=== PATIENT | female | born 1980 | race Caucasian/White ===

== ENCOUNTER 2016-05-05 10:29 | Emergency (ER) | payer BC ==
[2016-05-05] MEDS ORDERED: ANTIVERT 25 MG PO ONE (11:12)
[2016-05-05] MEDS ORDERED: Sodium Chloride 0.9% 1000 ML 1,000 ML IV SCH (11:15)
--- NOTE | 2016-05-05 11:24 | ERPHSYRPT ---
- History of Present Illness Time Seen by Provider: 05/05/16 10:45 Source: patient Exam Limitations: clinical condition Patient Subjective Stated Complaint: pt co headache since 0 this morning, pt has hx of migraines. 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 DENIES FEVER, BLURRED VISION, FACIAL PAIN OR NASAL DRAINAGE. Timing/Duration: today Quality: throbbing Head Pain Location: global Severity of Pain-Max: moderate Severity of Pain-Current: moderate Recent Head Trauma: frequent headaches Modifying Factors: Improves With: exposure to light Associated Symptoms: dizziness, light-headedness Previous symptoms: same symptoms as today Allergies/Adverse Reactions: azithromycin Allergy (Verified 10/31/13 18:12) Muscle Aches hydrocodone bitartrate [From Vicodin] Allergy (Verified 05/05/16 10:48) naproxen [From Naprosyn] Allergy (Verified 05/05/16 10:48) Home Medications: Tramadol HCl 50 mg DAILY PRN PRN 05/05/16 [History] Vit D3 & K/Berberine HCl/Hops [Ostera Tablet] 1 ea DAILY 05/05/16 [History] Hx Tetanus, Diphtheria Vaccination/Date Given: Yes Hx Influenza Vaccination/Date Given: No Hx Pneumococcal Vaccination/Date Given: No Immunizations Up to Date: Yes - Review of Systems Constitutional: No Fever, No Chills Eyes: No Symptoms Ears, Nose, & Throat: No Symptoms Respiratory: No Symptoms, No Cough, No Dyspnea Cardiac: No Symptoms, No Chest Pain, No Edema, No Syncope Abdominal/Gastrointestinal: No Symptoms, No Abdominal Pain, No Nausea, No Vomiting, No Diarrhea Genitourinary Symptoms: No Symptoms, No Dysuria Musculoskeletal: No Symptoms, No Back Pain, No Neck Pain Skin: No Symptoms, No Rash Neurological: Headache, No Dizziness, No Focal Weakness, No Sensory Changes Psychological: No Symptoms Endocrine: No Symptoms All Other Systems: Reviewed and Negative - Past Medical History Pertinent Past Medical History: Yes Neurological History: Migraines Cardiac History: Deep Vein Thrombosis Other Medical History: intestinal malrotation surg x2 ,brain surg chiarii - Past Surgical History Past Surgical History: Yes Neuro Surgical History: Other Gastrointestinal: Cholecystectomy Female Surgical History: Section, Tubal Ligation Other Surgical History: brain surg - Social History Smoking Status: Never smoker Exposure to second hand smoke: No Drug Use: none Patient Lives Alone: No - Female History Hx Last Menstrual Period: april - Nursing Vital Signs Nursing Vital Signs: Initial Vital Signs Temperature 98.2 F Temperature Source Oral Pulse Rate 80 Respiratory Rate 22 Blood Pressure [Right Arm] 110/61 Pain Intensity 5 - Physical Exam General Appearance: no apparent distress Eye Exam: PERRL/EOMI Ears, Nose, Throat Exam: normal ENT inspection, moist mucous membranes Neck Exam: normal inspection, supple, full range of motion, No meningismus Respiratory Exam: normal breath sounds, lungs clear Cardiovascular Exam: regular rate/rhythm, normal heart sounds Gastrointestinal/Abdominal Exam: soft, normal bowel sounds, No tenderness, No distention Back Exam: normal inspection, normal range of motion Mental Status Exam: alert, oriented x 3, cooperative water resource consultant Exam: normal speech, PERRL, No facial droop Coordination/Gait Exam: normal cerebellar function Motor/Sensory Exam: no motor deficit, no sensory deficit DTR Exam: bicep (R): 2+, bicep (L): 2+, tricep (R): 2+, tricep (L): 2+, knee (R) : 2+, knee (L): 2+, ankle (R): 2+, ankle (L): 2+ Skin Exam: normal color, warm, dry, No rash SpO2 Interpretation: normal SpO2: 99 Oxygen Delivery: Room Air - Course EKG Interpreted by Me: RATE, Sinus Rhythm, NORMAL AXIS - CT Exams Head CT Interpretation: Discussed w/radiologist, No/Intracranial Hemorrhag Ordered Tests: Active Orders 24 hr Category Date Time Status EKG-ER Only STAT Care 05/05/16 11:10 Active Orthostatic Vital Signs STAT Care 05/05/16 11:11 Active HEAD WITHOUT CONTRAST [CT] Stat Exams 05/05/16 13:04 Completed CBC W DIFF Stat Lab 05/05/16 11:26 Completed CMP Stat Lab 05/05/16 11:26 Completed HCG,QUALITATIVE URINE Stat Lab 05/05/16 11:47 Completed MAGNESIUM Stat Lab 05/05/16 11:26 Completed Medication Summary Generic Name Dose Route Start Last Admin Trade Name Sulaiman PRN Reason Stop Dose Admin Sodium Chloride 1,000 mls @ 500 mls/hr 05/05/16 11:15 05/05/16 11:31 Sodium Chloride 0.9% 1000 Ml IV 06/04/16 11:14 500 mls/hr .Q2H FERCHO Administration Discontinued Medications Generic Name Dose Route Start Last Admin Trade Name Sulaiman PRN Reason Stop Dose Admin Fentanyl Citrate 100 mcg 05/05/16 13:03 05/05/16 13:16 Sublimaze 100 Mcg/2 Ml IV 05/05/16 13:04 100 mcg STAT ONE Administration Fentanyl Citrate Confirm 05/05/16 13:15 Sublimaze 100 Mcg/2 Ml Administered 05/05/16 13:16 Dose 100 mcg .ROUTE .STK-MED ONE Sodium Chloride Confirm 05/05/16 11:28 Sodium Chloride 0.9% 1000 Ml Administered 05/05/16 11:29 Dose 1,000 mls @ ud .ROUTE .STK-MED ONE Meclizine HCl 25 mg 05/05/16 11:12 05/05/16 11:32 Antivert 25 Mg PO 05/05/16 11:13 25 mg STAT ONE Administration Meclizine HCl Confirm 05/05/16 11:28 Antivert 25 Mg Administered 05/05/16 11:29 Dose 25 mg .ROUTE .STK-MED ONE Ondansetron HCl 4 mg 05/05/16 11:27 05/05/16 11:43 Zofran 4 Mg/2 Ml Vial IV 05/05/16 11:28 4 mg STAT ONE Administration Ondansetron HCl Confirm 05/05/16 11:42 Zofran 4 Mg/2 Ml Vial Administered 05/05/16 11:43 Dose 4 mg .ROUTE .STK-MED ONE Lab/Rad Data: Laboratory Result Diagrams 05/05/16 11:26 05/05/16 11:26 Laboratory Results 05/05/16 05/05/16 05/05/16 Range/Units 11:47 11:26 11:26 WBC 12.3 H (4.0-10.5) K/mm3 RBC 4.57 (4.1-5.4) M/mm3 Hgb 13.8 (12.0-16.0) gm/dl Hct 41.2 (35-47) % MCV 90.2 (78-100) fl MCH 30.2 (26-32) pg MCHC 33.5 (32-36) g/dl RDW 12.3 (11.5-14.0) % Plt Count 262 (150-450) K/mm3 MPV 11.3 H (6-9.5) fl Gran % 82.5 H (36.0-66.0) % Lymphocytes % 12.5 L (24.0-44.0) % Monocytes % 4.5 (0.0-12.0) % Eosinophils % 0.3 (0.00-5.0) % Basophils % 0.2 (0.0-0.4) % Basophils # 0.03 (0-0.4) Sodium 138 (136-145) mEq/L Potassium 4.0 (3.5-5.1) mEq/L Chloride 104 (98-107) mEq/L Carbon Dioxide 25.8 (21-32) mEq/L Anion Gap 12.1 (5-15) MEQ/L BUN 14 (9-20) mg/dL Creatinine 0.81 (0.55-1.30) mg/dl Estimated GFR > 60 ML/MIN Glucose 102 (70-110) MG/DL Calcium 8.4 L (8.5-10.1) mg/dL Magnesium 2.0 (1.8-2.4) mg/dL Total Bilirubin 0.3 (0.2-1.0) mg/dL AST 21 (15-37) U/L ALT 20 (12-78) U/L Alkaline Phosphatase 71 (46-116) U/L Serum Total Protein 7.6 (6.4-8.2) gm/dL Albumin 3.6 (3.4-5.0) g/dL Urine HCG, Qual NEGATIVE (Negative) - Progress Progress: improved Progress Note: 05/05/16 11:25 PATIENT GIVEN IV FLUIDS NORMAL SALINE 500MG/HR, ANTIVERT 25MG ORALLY, ZOFRAN 4MG IV AND FENTANYL -0.11MG IV 05/05/16 13:25 - Departure Time of Disposition: 14:45 Departure Disposition: Home Clinical Impression: ACUTE LABYRINTHITIS, ACUTE CEPHALGIA Condition: Stable Critical Care Time: No Instructions: Headache Additional Instructions: BEGIN ANTIVERT 25MG EVERY 8 HOURS FOR PAIN NEEDED. FIORICET WITH CODEINE EVERY 4 HOURS FOR PAIN NEEDED. CONSULT YOUR FAMILY PHYSICIAN TODAY TO SCHEDULE FOLLOWUP APPOINTMENT. Prescriptions: Codeine/Butalbit/Acetamin/Caff [Fioricet-Cod [id number] Cap] 1 each PO Q4H PRN PRN #10 capsule PRN Reason: Pain Meclizine HCl 25 mg [Antivert 25 mg] 25 mg PO TID PRN PRN #21 tablet PRN Reason: Dizziness
[2016-05-05] MEDS ORDERED: Zofran 4 MG/2 ML VIAL IV ONE (11:27)
[2016-05-05] MEDS ORDERED: ANTIVERT 25 MG ONE (11:28)
[2016-05-05] MEDS ORDERED: Sodium Chloride 0.9% 1000 ML 1,000 ML ONE (11:28)
[2016-05-05] MEDS ORDERED: Zofran 4 MG/2 ML VIAL ONE (11:42)
[2016-05-05 11:46] LABS: BASOPHIL % 0.2 % (0.0-0.4); Eosinophil % 0.3 % (0.00-5.0); Granulocytes % 82.5 % (36.0-66.0); Lymphocytes % 12.5 % (24.0-44.0); Mean Cell Volume 90.2 fl (78-100); Mean Corpuscular Hemoglobin 30.2 pg (26-32); Mean Platelet Volume 11.3 fl (6-9.5); Monocytes % 4.5 % (0.0-12.0); Platelet Count 262 K/mm3 (150-450); Red Blood Count 4.57 M/mm3 (4.1-5.4); Red Cell Distribution Width 12.3 % (11.5-14.0); White Blood Count 12.3 K/mm3 (4.0-10.5)
[2016-05-05 11:58] LABS: ALBUMIN 3.6 g/dL (3.4-5.0); ALKALINE PHOSPHATASE 71 U/L (46-116); ANION GAP 12.1 MEQ/L (5-15); BILIRUBIN,TOTAL 0.3 mg/dL (0.2-1.0); BLOOD UREA NITROGEN 14 mg/dL (9-20); CHLORIDE 104 mEq/L (98-107); Carbon Dioxide 25.8 mEq/L (21-32); Glucose 102 MG/DL (70-110); SGOT/AST 21 U/L (15-37); SGPT/ALT 20 U/L (12-78); SODIUM 138 mEq/L (136-145); Total Protein 7.6 gm/dL (6.4-8.2)
[2016-05-05] MEDS ORDERED: SUBLIMAZE 100 MCG/2 ML IV ONE (13:03)
[2016-05-05] MEDS ORDERED: SUBLIMAZE 100 MCG/2 ML ONE (13:15)
--- NOTE | 2016-05-05 13:58 | XRAY ---
Indication: Headache and dizziness. Multiple contiguous axial images obtained through the head without contrast. Comparison: None Normal appearing brain parenchyma and ventricles. Bony calvarium intact with note of previous midline occipital craniectomy. Visualized paranasal sinuses and mastoid air cells are pneumatized and clear. Impression: No acute intracranial abnormalities. CTDI 69.52
[2016-05-05 14:54] VITALS: BP 105/66; PULSE 88; O2SAT 98
== END 2016-05-05 14:54 | disposition home or self-care (01) ==
LOC: ED 10:29
DX: H83.09 Labyrinthitis, unspecified ear (principal); R51 Headache
CPT/HCPCS: 36000; 36415; 70450; 80053; 83735; 84703; 85025; 93005; 96360; 96365; 96374; 96375; 99284; J2405; J3010; A9270-GY

== ENCOUNTER 2016-07-02 12:58 | Emergency (ER) | payer BC ==
[2016-07-02] MEDS ORDERED: Zofran 4 MG/2 ML VIAL IV ONE (13:30)
[2016-07-02] MEDS ORDERED: BENADRYL 50 MG/ML IV ONE (13:30)
[2016-07-02] MEDS ORDERED: PROTONIX 40 MG IV IV ONE ×2 (13:30→13:46)
[2016-07-02] MEDS ORDERED: Sodium Chloride 0.9% 1000 ML 1,000 ML IV SCH (13:30)
[2016-07-02] MEDS ORDERED: Hydromorphone 1 mg/ml Ampule IV ONE (13:30)
[2016-07-02] MEDS ORDERED: BENADRYL 50 MG/ML ONE (13:45)
[2016-07-02] MEDS ORDERED: Zofran 4 MG/2 ML VIAL ONE (13:45)
[2016-07-02] MEDS ORDERED: Sodium Chloride 0.9% 1000 ML 1,000 ML ONE (13:46)
[2016-07-02] MEDS ORDERED: Hydromorphone 1 mg/ml Ampule ONE (13:46)
[2016-07-02 13:59] LABS: BASOPHIL % 0.5 % (0.0-0.4); Collection Type CCMS; Granulocytes % 55.9 % (36.0-66.0); Lymphocytes % 35.8 % (24.0-44.0); Mean Cell Volume 89.7 fl (78-100); Mean Corpuscular Hemoglobin 30.1 pg (26-32); Mean Platelet Volume 11.6 fl (6-9.5); Monocytes % 6.8 % (0.0-12.0); Platelet Count 253 K/mm3 (150-450); Red Blood Count 4.39 M/mm3 (4.1-5.4); Red Cell Distribution Width 12.2 % (11.5-14.0); White Blood Count 6.2 K/mm3 (4.0-10.5)
[2016-07-02 14:00] LABS: COMPLETE URINE MICROSCOPIC? NO
--- NOTE | 2016-07-02 14:16 | ERPHSYRPT ---
- History of Present Illness Time Seen by Provider: 07/02/16 13:10 Historian: patient Exam Limitations: clinical condition Patient Subjective Stated Complaint: onset lower abd pain this am Triage Nursing Assessment: ambulated to room without difficulty holding abd. skin w/d, color normal, resp easy. abd soft but tender. normal bowel sounds. Physician History: PATIENT WITH HISTORY OF ABDOMINAL MALROTATION SURGERY X 2 PROCEDURES, COMPLAINS OF ABDOMINAL PAIN SINCE 8AM SEVERE CRAMPING DISCOMFORT ASSOCIATED WITH NAUSEA, DENIES EMESIS OR DIARRHEA, FEVER, URINARY SYMPTOMS. Timing/Duration: today Activities at Onset: none Quality: cramping, sharpness Abdominal Pain Onset Location: periumbilical, generalized abdomen Pain Radiation: no radiation Severity of Pain-Max: moderate Severity of Pain-Current: moderate Modifying Factors: Improves With: nothing Associated Symptoms: nausea Previous symptoms: same symptoms as today Allergies/Adverse Reactions: azithromycin Allergy (Verified 07/02/16 13:13) Muscle Aches hydrocodone bitartrate [From Vicodin] Allergy (Verified 07/02/16 13:13) naproxen [From Naprosyn] Allergy (Verified 07/02/16 13:13) Hx Tetanus, Diphtheria Vaccination/Date Given: Yes Hx Influenza Vaccination/Date Given: No Hx Pneumococcal Vaccination/Date Given: No - Review of Systems Constitutional: No Fever, No Chills Eyes: No Symptoms Ears, Nose, & Throat: No Symptoms Respiratory: No Symptoms, No Cough, No Dyspnea Cardiac: No Symptoms, No Chest Pain, No Edema, No Syncope Abdominal/Gastrointestinal: Abdominal Pain, Nausea, No Vomiting, No Diarrhea Genitourinary Symptoms: No Symptoms, No Dysuria Musculoskeletal: No Symptoms, No Back Pain, No Neck Pain Skin: No Symptoms, No Rash Neurological: No Symptoms, No Dizziness, No Focal Weakness, No Sensory Changes Psychological: No Symptoms Endocrine: No Symptoms All Other Systems: Reviewed and Negative - Past Medical History Pertinent Past Medical History: Yes Neurological History: Migraines Cardiac History: Deep Vein Thrombosis Other Medical History: intestinal malrotation surg x2 ,brain surg chiarii - Past Surgical History Past Surgical History: Yes Neuro Surgical History: Other Gastrointestinal: Cholecystectomy Female Surgical History: Section, Tubal Ligation Other Surgical History: brain surg - Social History Smoking Status: Never smoker Exposure to second hand smoke: No Drug Use: none Patient Lives Alone: No - Female History Hx Last Menstrual Period: 06/16/16 - Nursing Vital Signs Nursing Vital Signs: Initial Vital Signs Temperature 97.5 F Temperature Source Oral Pulse Rate 81 Respiratory Rate 20 Blood Pressure [Right Arm] 111/70 Pain Intensity 7 - Physical Exam General Appearance: mild distress Eye Exam: PERRL/EOMI, eyes nml inspection Ears, Nose, Throat Exam: normal ENT inspection, pharynx normal, moist mucous membranes Neck Exam: normal inspection, non-tender, supple, full range of motion Respiratory Exam: normal breath sounds, lungs clear, No respiratory distress Cardiovascular Exam: regular rate/rhythm, normal heart sounds Gastrointestinal/Abdomen Exam: soft, normal bowel sounds, tenderness ( PERIUMBILICAL TENDERNESS) Back Exam: normal inspection Extremity Exam: normal inspection Neurologic Exam: alert, oriented x 3, cooperative Skin Exam: normal color SpO2 Interpretation: normal SpO2: 95 Oxygen Delivery: Room Air - CT Exams Abdomen/Pelvis CT Interpretation: Discussed w/radiologist (NEW VENTRAL UMBILICAL HERNIA WITH HERNIATED LOOP OF COLON, NO INCARCERATION/OBSTRUCTION. STABLE MALROTATION WITHOUT OBSTRUCTION. NEW 2.2CM LEFT OVARIAN CYST) Ordered Tests: Active Orders 24 hr Category Date Time Status Clean Catch Urine Specimen STAT Care 07/02/16 13:30 Active IV Insertion STAT Care 07/02/16 13:30 Active ABDOMEN AND PELVIS W CONTRAST [CT] Stat Exams 07/02/16 13:31 Completed AMYLASE Stat Lab 07/02/16 13:45 Completed CBC W DIFF Stat Lab 07/02/16 13:45 Completed CMP Stat Lab 07/02/16 13:45 Completed LIPASE Stat Lab 07/02/16 13:45 Completed UA Stat Lab 07/02/16 13:45 Completed Medication Summary Generic Name Dose Route Start Last Admin Trade Name Freq PRN Reason Stop Dose Admin Sodium Chloride 1,000 mls @ 250 mls/hr 07/02/16 13:30 07/02/16 13:47 Sodium Chloride 0.9% 1000 Ml IV 08/01/16 13:29 250 mls/hr .Q4H FERCHO Administration Discontinued Medications Generic Name Dose Route Start Last Admin Trade Name Freq PRN Reason Stop Dose Admin Diphenhydramine HCl 25 mg 07/02/16 13:30 07/02/16 13:51 Benadryl 50 Mg/Ml IV 07/02/16 13:31 25 mg STAT ONE Administration Diphenhydramine HCl Confirm 07/02/16 13:45 Benadryl 50 Mg/Ml Administered 07/02/16 13:46 Dose 50 mg .ROUTE .STK-MED ONE Fentanyl Citrate 100 mcg 07/02/16 15:23 Sublimaze 100 Mcg/2 Ml IV 07/02/16 15:24 STAT ONE Fentanyl Citrate Confirm 07/02/16 15:29 Sublimaze 100 Mcg/2 Ml Administered 07/02/16 15:30 Dose 100 mcg .ROUTE .STK-MED ONE Hydromorphone HCl 1 mg 07/02/16 13:30 07/02/16 13:52 Hydromorphone 1 Mg/Ml Ampule IV 07/02/16 13:31 1 mg STAT ONE Administration Hydromorphone HCl Confirm 07/02/16 13:46 Hydromorphone 1 Mg/Ml Ampule Administered 07/02/16 13:47 Dose 1 mg .ROUTE .STK-MED ONE Ondansetron HCl 4 mg 07/02/16 13:30 07/02/16 13:50 Zofran 4 Mg/2 Ml Vial IV 07/02/16 13:31 4 mg STAT ONE Administration Ondansetron HCl Confirm 07/02/16 13:45 Zofran 4 Mg/2 Ml Vial Administered 07/02/16 13:46 Dose 4 mg .ROUTE .STK-MED ONE Pantoprazole Sodium 40 mg 07/02/16 13:30 07/02/16 13:50 Protonix 40 Mg Iv IV 07/02/16 13:31 40 mg STAT ONE Administration Pantoprazole Sodium Confirm 07/02/16 13:46 Protonix 40 Mg Iv Administered 07/02/16 13:47 Dose 40 mg IV .STK-MED ONE Lab/Rad Data: Laboratory Result Diagrams 07/02/16 13:45 07/02/16 13:45 Laboratory Results 07/02/16 07/02/16 07/02/16 Range/Units 13:45 13:45 13:45 WBC 6.2 (4.0-10.5) K/mm3 RBC 4.39 (4.1-5.4) M/mm3 Hgb 13.2 (12.0-16.0) gm/dl Hct 39.4 (35-47) % MCV 89.7 (78-100) fl MCH 30.1 (26-32) pg MCHC 33.5 (32-36) g/dl RDW 12.2 (11.5-14.0) % Plt Count 253 (150-450) K/mm3 MPV 11.6 H (6-9.5) fl Gran % 55.9 (36.0-66.0) % Lymphocytes % 35.8 (24.0-44.0) % Monocytes % 6.8 (0.0-12.0) % Eosinophils % 1.0 (0.00-5.0) % Basophils % 0.5 (0.0-0.4) % Basophils # 0.03 (0-0.4) Sodium 142 (136-145) mEq/L Potassium 3.9 (3.5-5.1) mEq/L Chloride 108 H (98-107) mEq/L Carbon Dioxide 25.3 (21-32) mEq/L Anion Gap 12.5 (5-15) MEQ/L BUN 9 (9-20) mg/dL Creatinine 0.73 (0.55-1.30) mg/dl Estimated GFR > 60 ML/MIN Glucose 100 (70-110) MG/DL Calcium 8.6 (8.5-10.1) mg/dL Total Bilirubin 0.2 (0.2-1.0) mg/dL AST 12 L (15-37) U/L ALT 15 (12-78) U/L Alkaline Phosphatase 55 (46-116) U/L Serum Total Protein 7.1 (6.4-8.2) gm/dL Albumin 3.4 (3.4-5.0) g/dL Amylase 45 (25-115) U/L Lipase 149 (73-393) U/L Ur Collection Type CCMS Urine Color YELLOW (YELLOW) Urine Appearance CLEAR (CLEAR) Urine pH 7.0 (5-6) Ur Specific Carpenter 1.015 (1.005-1.025) Urine Protein NEGATIVE (Negative) Urine Glucose (UA) NEGATIVE (NEGATIVE) mg/dL Urine Ketones NEGATIVE (NEGATIVE) Urine Nitrite NEGATIVE (NEGATIVE) Urine Bilirubin NEGATIVE (NEGATIVE) Urine Urobilinogen 0.2 (0-1) mg/dL Urine WBC (Auto) NEGATIVE (NEGATIVE) Urine RBC (Auto) NEGATIVE (0-5) Monty/ul Specimen Received 1345 07/02/16 - Progress Progress Note: 07/02/16 14:16 PATIENT ADMNINISTERED IV NORMAL SALINE 250ML/HR, ZOFRAN 4MG, BENADRYL 25MG, DILAUDID 1MG IV, FOLLOWED BY FENTANYL 0.1MG IV 07/02/16 15:36 - Departure Time of Disposition: 16:00 Departure Disposition: Home Clinical Impression: Umbilical hernia, LEFT OVARIAN CYST Condition: Stable Critical Care Time: No Additional Instructions: ZOFRAN 4MG EVERY 4 HOURS FOR PAIN. NORCO 10/325 EVERY 4 HOURS FOR PAIN DISCOMFORT. CONSULT YOUR GENERAL SURGEON FOR EVALUATION OF UMBILICAL HERNIA, AND INDUSTRIAL PSYCHOLOGY TEACHER FOR EVALUATION OF LEFT OVARIAN CYST. Prescriptions: Hydrocodone/APAP 10/325 mg [[place] 10/325 MG Tablet] 1 tab PO Q4H PRN PRN # 15 tablet PRN Reason: Pain Ondansetron [Zofran Odt] 4 mg PO Q4H PRN PRN #6 tab.rapdis PRN Reason: Nausea
[2016-07-02 14:24] LABS: ALBUMIN 3.4 g/dL (3.4-5.0); ALKALINE PHOSPHATASE 55 U/L (46-116); ANION GAP 12.5 MEQ/L (5-15); BILIRUBIN,TOTAL 0.2 mg/dL (0.2-1.0); BLOOD UREA NITROGEN 9 mg/dL (9-20); CHLORIDE 108 mEq/L (98-107); Carbon Dioxide 25.3 mEq/L (21-32); Glucose 100 MG/DL (70-110); LIPASE 149 U/L (73-393); Potassium 3.9 mEq/L (3.5-5.1); SGOT/AST 12 U/L (15-37); SGPT/ALT 15 U/L (12-78); SODIUM 142 mEq/L (136-145); Total Protein 7.1 gm/dL (6.4-8.2)
--- NOTE | 2016-07-02 15:13 | XRAY ---
Indication: Abdominal pain and vomiting. Multiple contiguous axial images obtained through the abdomen and pelvis using 80 cc Isovue 370 contrast only. Comparison: March 05, 2010. Lung bases demonstrate stable bibasilar fibrosis/scarring. No suspicious mass, infiltrate, or effusion. Heart is not enlarged. Noncontrasted stomach and bowel loops nonobstructed. Again the small bowel loops are predominantly in the right abdomen and colon predominantly left abdomen consistent with malrotation. New [place] 6 cm ventral umbilical hernia with loop of colon herniating without incarceration. There has been interval cholecystectomy and partial bowel resection. New 2.2 cm left ovary cyst. No free fluid/air. Stable nonobstructing left renal micro-calculus. Remaining liver, pancreas, spleen, adrenal glands, kidneys, ureters, bladder, uterus, and aorta appear unremarkable. No pathologic retroperitoneal lymphadenopathy. Osseous structures intact. Impression: 1. New ventral umbilical hernia with herniated loop of colon. No incarceration/obstruction. 2. 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 3. New 2.2 cm left ovary cyst. 4. Stable nonobstructing left renal micro-calculus. CT DI 20.07
[2016-07-02] MEDS ORDERED: SUBLIMAZE 100 MCG/2 ML IV ONE (15:23)
[2016-07-02] MEDS ORDERED: SUBLIMAZE 100 MCG/2 ML ONE (15:29)
[2016-07-02 15:41] VITALS: BP 116/69; PULSE 90
[2016-07-02 15:56] VITALS: O2SAT 95
== END 2016-07-02 16:17 | disposition home or self-care (01) ==
LOC: ED 12:58
DX: K42.9 Umbilical hernia without obstruction or gangrene (principal); N83.202 Unspecified ovarian cyst, left side; R10.30 Lower abdominal pain, unspecified; R11.0 Nausea
CPT/HCPCS: 36000; 36415; 74177; 80053; 81002; 82150; 83690; 85025; 96360; 96361; 96374; 96375; 99284; J1170; J1200; J2405; J3010

== ENCOUNTER 2018-06-09 17:41 | Emergency (ER) | payer BC ==
[2018-06-09] MEDS ORDERED: MORPHINE SULFATE 10 MG/ML IM ONE (18:29)
[2018-06-09] MEDS ORDERED: Phenergan 25 MG INJ IM ONE (18:31)
--- NOTE | 2018-06-09 18:36 | ERPHSYRPT ---
- History of Present Illness Time Seen by Provider: 06/09/18 18:15 Source: patient Exam Limitations: clinical condition Patient Subjective Stated Complaint: sudden onset of headache staes had visual problems. and light sensitivity. states pain is across her forhead and into her face. "feel like my nose is broken" Triage Nursing Assessment: alert and head covered. tinted glasses on holding head. states light sentitive. nausea no vomiting. unable to assess pupils due to pain with light. 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 hurt when she holds her head up. Physician History: PATIENT WITH A HISTORY OF ENZO DECOMPRESSION SURGERY 10 YEARS AGO COMPLAINS OF ACUTE ONSET OF FRONTAL HEADACHE ASSOCIATED WITH PHOTOPHOBIA OVER THE PAST 4 HOURS. DENIES BLURRED VISION, SLURRED SPEECH, NECK STIFFNESS OR FEVER. Timing/Duration: today Quality: throbbing Head Pain Location: frontal Severity of Pain-Max: severe Severity of Pain-Current: moderate Recent Head Trauma: no recent headache/trauma Modifying Factors: Improves With: exposure to light Associated Symptoms: vision changes Previous symptoms: same symptoms as today Allergies/Adverse Reactions: azithromycin Allergy (Verified 07/02/16 13:13) Muscle Aches hydrocodone bitartrate [From Vicodin] Allergy (Verified 07/02/16 13:13) naproxen [From Naprosyn] Allergy (Verified 07/02/16 13:13) Hx Tetanus, Diphtheria Vaccination/Date Given: Yes Hx Influenza Vaccination/Date Given: No Hx Pneumococcal Vaccination/Date Given: No Immunizations Up to Date: Yes - Review of Systems Constitutional: No Fever, No Chills Eyes: Photophobia Ears, Nose, & Throat: No Symptoms Respiratory: No Symptoms, No Cough, No Dyspnea Cardiac: Orthopnea, No Chest Pain, No Edema, No Syncope Abdominal/Gastrointestinal: No Abdominal Pain, No Nausea, No Vomiting, No Diarrhea Genitourinary Symptoms: No Dysuria Musculoskeletal: No Symptoms, No Back Pain, No Neck Pain Skin: No Rash Neurological: No Dizziness, No Focal Weakness, No Sensory Changes Psychological: No Symptoms Endocrine: No Symptoms All Other Systems: Reviewed and Negative - Past Medical History Pertinent Past Medical History: Yes Neurological History: Migraines Cardiac History: Deep Vein Thrombosis Other Medical History: intestinal malrotation surg x2 ,brain surg chiarii - Past Surgical History Past Surgical History: Yes Neuro Surgical History: Other Gastrointestinal: Cholecystectomy Female Surgical History: Section, Tubal Ligation Other Surgical History: brain surg - Social History Smoking Status: Never smoker Exposure to second hand smoke: No Drug Use: none Patient Lives Alone: No - Female History Hx Now: No - Nursing Vital Signs Nursing Vital Signs: Initial Vital Signs Temperature 97.6 F 06/09/18 17:58 Pulse Rate 87 06/09/18 17:58 Respiratory Rate 18 06/09/18 17:58 Blood Pressure 100/82 06/09/18 17:58 O2 Sat by Pulse Oximetry 97 06/09/18 17:58 Pain Scale Pain Intensity 6 - Physical Exam General Appearance: moderate distress Eye Exam: PERRL/EOMI Ears, Nose, Throat Exam: normal ENT inspection, moist mucous membranes Neck Exam: normal inspection, supple, full range of motion, No meningismus Respiratory Exam: normal breath sounds, lungs clear Cardiovascular Exam: regular rate/rhythm, normal heart sounds Gastrointestinal/Abdominal Exam: soft, No tenderness, No distention Back Exam: normal inspection, normal range of motion Mental Status Exam: alert, oriented x 3, cooperative occupational therapy assist Exam: normal speech, PERRL, No facial droop Coordination/Gait Exam: normal cerebellar function Motor/Sensory Exam: no motor deficit, no sensory deficit Skin Exam: normal color, warm, dry, No rash SpO2: 97 - CT Exams Head CT Interpretation: Discussed w/radiologist (STABLE OCCIPITAL CRANIOTOMY COMPARED TO 05/05/2016, NO NEW OR ACUTE FINDING) Ordered Tests: Active Orders 24 hr Category Date Time Status HEAD WITHOUT CONTRAST [CT] Stat Exams 06/09/18 18:32 Taken Medication Summary Discontinued Medications Generic Name Dose Route Start Last Admin Trade Name Sulaiman PRN Reason Stop Dose Admin Morphine Sulfate 10 mg 06/09/18 18:29 06/09/18 18:46 Morphine Sulfate 10 Mg/Ml IM 06/09/18 18:30 10 mg STAT ONE Administration Morphine Sulfate Confirm 06/09/18 18:37 Morphine Sulfate 10 Mg/Ml Administered 06/09/18 18:38 Dose 10 mg .ROUTE .STK-MED ONE Morphine Sulfate Confirm 06/09/18 18:46 Morphine Sulfate 10 Mg/Ml Administered 06/09/18 18:47 Dose 10 mg .ROUTE .STK-MED ONE Promethazine HCl 25 mg 06/09/18 18:31 06/09/18 18:47 Phenergan 25 Mg Inj IM 06/09/18 18:32 25 mg STAT ONE Administration Promethazine HCl Confirm 06/09/18 18:37 Phenergan 25 Mg Inj Administered 06/09/18 18:38 Dose 25 mg .ROUTE .STK-MED ONE Promethazine HCl Confirm 06/09/18 18:46 Phenergan 25 Mg Inj Administered 06/09/18 18:47 Dose 25 mg .ROUTE .STK-MED ONE - Progress Progress Note: 06/09/18 19:06 ADMINISTERED MORPHINE 10MG/PHENERGAN 25MG IM Counseled pt/family regarding: diagnosis, need for follow-up, rad results - Departure Departure Disposition: Home Clinical Impression: ACUTE CEPLHALGIA Condition: Stable Critical Care Time: No Referrals: KALIE SY [Primary Care Provider] - Additional Instructions: CONTINUE ZOFRAN 4MG EVERY 4 HOURS FOR NAUSEA. FIORICET 1 TABLET EVERY 4 HOURS FOR PAIN NEEDED. CONSULT YOUR PRIMARY CARE PROVIDER FOR FOLLOWUP.
[2018-06-09] MEDS ORDERED: MORPHINE SULFATE 10 MG/ML ONE ×2 (18:37→18:46)
[2018-06-09] MEDS ORDERED: Phenergan 25 MG INJ ONE ×2 (18:37→18:46)
[2018-06-09 20:22] VITALS: BP 98/64; PULSE 65; O2SAT 100
--- NOTE | 2018-06-10 09:05 | XRAY ---
Indication: Frontal headache. Multiple contiguous axial images obtained through the head without contrast. Comparison: May 05, 2016. Stable occipital craniectomy. Again no acute intracranial hemorrhage, abnormal extra-axial fluid collection, or mass effect. Fourth ventricle is midline without hydrocephalus. Moffett-white matter differentiation preserved. Remaining bony calvarium intact. Visualized paranasal sinuses and mastoid air cells are clear. Impression: Stable negative CT head without contrast exam. CT DI 70.00
== END 2018-06-09 20:26 | disposition home or self-care (01) ==
LOC: ED 17:41
DX: R51 Headache (principal)
CPT/HCPCS: 70450; 96372; 99284; J2270; J2550

== ENCOUNTER 2019-01-14 13:01 | Observation (INO) | payer BC ==
--- NOTE | 2019-01-14 13:12 | ERPHSYRPT ---
- History of Present Illness Time Seen by Provider: 01/14/19 13:10 Source: patient Patient Subjective Stated Complaint: COUGH, SHORTNESS OF BREATH SINCE LAST THURSDAY. SEEN AT [facility] THURSDAY AND STARTED ON PREDNISONE AND COUGH MED. STATES IS NOT GETTING ANY BETTER. Triage Nursing Assessment: AMBULATED TO ROOM PER SELF. SKIN W/D, COLOR NORMAL, RESP SLIGHTLY LABORED. BREATH SOUNDS CLEAR THROUGHOUT. OCCASIONAL DRY COUGH NOTED. Physician History: COUGH, SHORTNESS OF BREATH SINCE LAST THURSDAY. SEEN AT [facility] THURSDAY AND STARTED ON PREDNISONE AND COUGH MED. STATES IS NOT GETTING ANY BETTER. [ End ] Timing/Duration: day(s) (5), intermittent Activities at Onset: none Severity of Dyspnea-Max: moderate Severity of Dyspnea-Current: moderate Possible Cause: occasional episodes Modifying Factors: Improves With: coughing Associated Symptoms: intermittent, chest pain/discomfort, wheezing, painful breathing International travel in last 2 weeks: No Allergies/Adverse Reactions: azithromycin Allergy (Verified 01/14/19 13:11) Muscle Aches hydrocodone bitartrate [From Vicodin] Allergy (Verified 01/14/19 13:11) naproxen [From Naprosyn] Allergy (Verified 01/14/19 13:11) Home Medications: Benzonatate 100 mg PO TID 01/14/19 [History] Estradiol [Estrace] 0.5 mg PO DAILY 01/14/19 [History] Prednisone 10 mg [Deltasone 10 mg] 10 mg PO DAILY 01/14/19 [History] Hx Tetanus, Diphtheria Vaccination/Date Given: Yes Hx Influenza Vaccination/Date Given: No Hx Pneumococcal Vaccination/Date Given: No - Review of Systems Constitutional: No Fever, No Chills Eyes: No Symptoms Ears, Nose, & Throat: No Symptoms Respiratory: Cough, Dyspnea, Wheezing Cardiac: Chest Pain, No Edema, No Syncope Abdominal/Gastrointestinal: No Abdominal Pain, No Nausea, No Vomiting, No Diarrhea Genitourinary Symptoms: No Dysuria Musculoskeletal: No Back Pain, No Neck Pain Skin: No Rash Neurological: No Dizziness, No Focal Weakness, No Sensory Changes Psychological: No Symptoms Endocrine: No Symptoms All Other Systems: Reviewed and Negative - Past Medical History Pertinent Past Medical History: Yes Neurological History: Migraines Cardiac History: Deep Vein Thrombosis Other Medical History: intestinal malrotation surg x2 ,brain surg chiarii - Past Surgical History Past Surgical History: Yes Neuro Surgical History: Other Gastrointestinal: Cholecystectomy Female Surgical History: Section, Tubal Ligation Other Surgical History: brain surg - Social History Smoking Status: Never smoker Exposure to second hand smoke: No Drug Use: none Patient Lives Alone: No - Female History Hx Now: No - Nursing Vital Signs Nursing Vital Signs: Initial Vital Signs Temperature 97.7 F 01/14/19 13:02 Pulse Rate 77 01/14/19 13:02 Respiratory Rate 20 01/14/19 13:02 Blood Pressure 82/72 01/14/19 13:02 O2 Sat by Pulse Oximetry 99 01/14/19 13:02 Pain Scale Pain Intensity 0 - Physical Exam General Appearance: no apparent distress, alert Eye Exam: PERRL/EOMI, eyes nml inspection Ears, Nose, Throat Exam: hearing grossly normal, normal pharynx (horse voice) Neck Exam: normal inspection, supple Respiratory Exam: normal breath sounds, lungs clear, airway intact, No chest tenderness, No respiratory distress, No diminished breath sounds, No accessory muscle use, No prolonged expirations Cardiovascular/Chest Exam: normal heart sounds, regular rate/rhythm Abdominal/Gastrointestinal Exam: soft, No tenderness, No distention, No mass Extremity Exam: non-tender, normal range of motion, normal inspection, no calf tenderness, no pedal edema Neurologic Exam: alert, oriented x 3, cooperative, 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 nml as tested, sensation nml, No motor deficits Skin Exam: normal color, warm, No dry SpO2 Interpretation: normal SpO2: 98 O2 Delivery: Room Air - Course EKG Interpreted by Me: RATE (78), NORMAL AXIS, NORMAL INTERVALS, NORMAL QRS, Non -specific ST Changes Ordered Tests: Active Orders 24 hr Category Date Time Status Sack Cleaner STAT Care 01/14/19 13:17 Active EKG-ER Only STAT Care 01/14/19 13:15 Active IV Insertion STAT Care 01/14/19 13:15 Active CHEST 1 VIEW (PORTABLE) Stat Exams 01/14/19 13:46 Taken BLOOD CULTURE Stat Lab 01/14/19 12:25 Received CBC W DIFF Stat Lab 01/14/19 12:25 Completed CK-Creatinine Phosphokinase Stat Lab 01/14/19 12:25 Completed CMP Stat Lab 01/14/19 12:25 Completed Lactic Acid Stat Lab 01/14/19 14:10 Results NT PRO BNP Stat Lab 01/14/19 12:25 Completed TROPONIN Stat Lab 01/14/19 12:25 Completed Peak Expiratory Flow Rate ONCE RT 01/14/19 13:48 Completed Respiratory Therapy Assessment DAILY RT 01/14/19 13:47 Completed Medication Summary Discontinued Medications Generic Name Dose Route Start Last Admin Trade Name Freq PRN Reason Stop Dose Admin Al Hydrox/Mg Hydrox/Simethicone Confirm 01/14/19 13:29 Maalox Es 30 Ml Unit Dose Administered 01/14/19 13:30 Dose 30 ml .ROUTE .STK-MED ONE Albuterol/Ipratropium 3 ml 01/14/19 13:15 01/14/19 13:47 Duoneb 0.5-3 Mg/3 Ml Neb IH 01/14/19 13:16 3 ml STAT ONE Administration Albuterol/Ipratropium Confirm 01/14/19 13:44 Duoneb 0.5-3 Mg/3 Ml Neb Administered 01/14/19 13:45 Dose 3 ml IH .STK-MED ONE Aspirin 324 mg 01/14/19 13:15 01/14/19 13:40 Baby Aspirin 81 Mg Chew PO 01/14/19 13:16 324 mg STAT ONE Administration Aspirin Confirm 01/14/19 13:29 Baby Aspirin 81 Mg Chew Administered 01/14/19 13:30 Dose 324 mg .ROUTE .STK-MED ONE Ceftriaxone Sodium/Dextrose 1 g in 50 mls @ 100 mls/hr 01/14/19 13:15 14:11 Rocephin 1 Gm-D5w 50 Ml Bag IV 01/14/19 13:44 Infused STAT STA Infusion Sodium Chloride 1,000 mls @ 999 mls/hr 01/14/19 13:15 01/14/19 14:39 Sodium Chloride 0.9% 1000 Ml IV 01/14/19 14:15 Infused .Q1H1M STA Infusion Azithromycin 500 mg in 250 mls @ 250 mls/hr 01/14/19 13:15 01/14/19 14:02 Zithromax 500 Mg/ 250 Ml Nacl Premix IV 01/14/19 14:14 Not Given STAT STA Sodium Chloride Confirm 01/14/19 13:30 Sodium Chloride 0.9% 1000 Ml Administered 01/14/19 13:31 Dose 1,000 mls @ ud .ROUTE .STK-MED ONE Ceftriaxone Sodium/Dextrose Confirm 01/14/19 13:30 Rocephin 1 Gm-D5w 50 Ml Bag Administered 01/14/19 13:31 Dose 1 g in 50 mls @ ud IV .STK-MED ONE Azithromycin Confirm 01/14/19 13:59 Zithromax 500 Mg/ 250 Ml Nacl Premix Administered 01/14/19 14:00 Dose 500 mg in 250 mls @ ud IV .STK-MED ONE Lidocaine HCl Confirm 01/14/19 13:29 Xylocaine Hcl Viscous * Administered 01/14/19 13:30 Dose 20 ml .ROUTE .STK-MED ONE Magnesium Hydroxide 45 ml 01/14/19 13:19 01/14/19 13:40 Gi Cocktail 45 Ml (Maalox/Lidocaine) PO 01/14/19 13:20 45 ml STAT ONE Administration Methylprednisolone Sodium Succinate 125 mg 01/14/19 13:15 01/14/19 13:39 Solu-Medrol 125 Mg IV 01/14/19 13:16 125 mg STAT ONE Administration Methylprednisolone Sodium Succinate Confirm 01/14/19 13:29 Solu-Medrol 125 Mg Administered 01/14/19 13:30 Dose 125 mg .ROUTE .STK-MED ONE Lab/Rad Data: Laboratory Result Diagrams 01/14/19 12:25 01/14/19 12:25 Laboratory Results 01/14/19 01/14/19 01/14/19 Range/Units 14:10 12:25 12:25 WBC 9.0 (4.0-10.5) K/mm3 RBC 4.72 (4.1-5.4) M/mm3 Hgb 14.4 (12.0-16.0) gm/dl Hct 42.8 (35-47) % MCV 90.7 (78-100) fl MCH 30.5 (26-32) pg MCHC 33.6 (32-36) g/dl RDW 12.1 (11.5-14.0) % Plt Count 260 (150-450) K/mm3 MPV 11.7 H (6-9.5) fl Gran % 58.2 (36.0-66.0) % Eos # (Auto) 0.01 (0-0.5) Absolute Lymphs (auto) 2.90 (1.0-4.6) Absolute Monos (auto) 0.82 (0.0-1.3) Lymphocytes % 32.4 (24.0-44.0) % Monocytes % 9.2 (0.0-12.0) % Eosinophils % 0.1 (0.00-5.0) % Basophils % 0.1 (0.0-0.4) % Absolute Granulocytes 5.21 (1.4-6.9) Basophils # 0.01 (0-0.4) Sodium 144 (137-145) mmol/L Potassium 4.0 (3.5-5.1) mmol/L Chloride 107 (98-107) mmol/L Carbon Dioxide 26 (22-30) mmol/L Anion Gap 14.1 (5-15) MEQ/L BUN 10 (7-17) mg/dL Creatinine 0.59 (0.52-1.04) mg/dL Estimated GFR > 60.0 ML/MIN Glucose 94 (74-106) mg/dL Lactic Acid 4.5 H (0.4-2.0) Calcium 9.5 (8.4-10.2) mg/dL Total Bilirubin 0.30 (0.2-1.3) mg/dL AST 24 (14-36) U/L ALT 22 (0-35) U/L Alkaline Phosphatase 63 (38-126) U/L Creatine Kinase 68 (30-135) U/L Troponin I < 0.012 (0.000-0.034) ng/mL NT-Pro-B Natriuret Pep 251 (0-450) pg/mL Serum Total Protein 8.0 (6.3-8.2) g/dL Albumin 4.3 (3.5-5.0) g/dL - Progress Progress: improved Air Movement: good Progress Note: 01/14/19 14:54 Discussed results with pt. Adv adm. She agreed Blood Culture(s) Obtained: Yes Antibiotics given: Yes Discussed with : Venkatesh Will see patient in: hospital (observation) Counseled pt/family regarding: diagnosis - Departure Departure Disposition: Observation Clinical Impression: Sepsis Qualifiers: Sepsis type: sepsis due to unspecified organism Sepsis acute organ dysfunction status: without acute organ dysfunction Qualified Code(s): A41.9 - Sepsis, unspecified organism Pneumonia Qualifiers: Pneumonia type: due to unspecified organism Laterality: right Lung location: lower lobe of lung Qualified Code(s): J18.9 - Pneumonia, unspecified organism Condition: Fair Critical Care Time: No Referrals: KALIE SY [Primary Care Provider] - Instructions: Pneumonia, Adult (DC)
[2019-01-14] MEDS ORDERED: DUONEB 0.5-3 MG/3 ml Neb IH ONE ×2 (13:15→13:44)
[2019-01-14] MEDS ORDERED: solu-MEDROL 125 MG IV ONE (13:15)
[2019-01-14] MEDS ORDERED: Sodium Chloride 0.9% 1000 ML 1,000 ML IV STA (13:15)
[2019-01-14] MEDS ORDERED: Zithromax 500 MG/ 250 ML NaCl Premix 500 MG/250 ML IVPB IV STA (13:15)
[2019-01-14] MEDS ORDERED: BABY ASPIRIN 81 MG CHEW PO ONE (13:15)
[2019-01-14] MEDS ORDERED: ROCEPHIN 1 Gm-D5w 50 ml Bag** 1 G/50 ML IVPB IV STA (13:15)
[2019-01-14] MEDS ORDERED: GI COCKTAIL 45 ML (Maalox/Lidocaine) PO ONE (13:19)
[2019-01-14] MEDS ORDERED: solu-MEDROL 125 MG ONE (13:29)
[2019-01-14] MEDS ORDERED: XYLOCAINE HCl Viscous ONE (13:29)
[2019-01-14] MEDS ORDERED: BABY ASPIRIN 81 MG CHEW ONE (13:29)
[2019-01-14] MEDS ORDERED: MAALOX ES 30 ML UNIT DOSE ONE (13:29)
[2019-01-14] MEDS ORDERED: ROCEPHIN 1 Gm-D5w 50 ml Bag** 1 G/50 ML IVPB IV ONE (13:30)
[2019-01-14] MEDS ORDERED: Sodium Chloride 0.9% 1000 ML 1,000 ML ONE (13:30)
[2019-01-14 13:51] LABS: Absolute Neutrophil Ct (ANC) 5.21 (1.4-6.9); BASOPHIL % 0.1 % (0.0-0.4); Basophil (Absolute #) 0.01 (0-0.4); Eosinophil % 0.1 % (0.00-5.0); Eosinophil (Absolute #) 0.01 (0-0.5); Hematocrit 42.8 % (35-47); Hemoglobin 14.4 gm/dl (12.0-16.0); Lymphocytes % 32.4 % (24.0-44.0); Mean Cell Volume 90.7 fl (78-100); Mean Corpuscular Hemoglobin 30.5 pg (26-32); Mean Corpuscular Hgb Concent. 33.6 g/dl (32-36); Mean Platelet Volume 11.7 fl (6-9.5); Monocyte (Absolute #) 0.82 (0.0-1.3); Monocytes % 9.2 % (0.0-12.0); Neutrophil % 58.2 % (36.0-66.0); Platelet Count 260 K/mm3 (150-450); Red Blood Count 4.72 M/mm3 (4.1-5.4); Red Cell Distribution Width 12.1 % (11.5-14.0)
[2019-01-14] MEDS ORDERED: Zithromax 500 MG/ 250 ML NaCl Premix 0 MG/0 ML IVPB IV ONE (13:59)
[2019-01-14 14:12] LABS: Lactic Acid 4.5 (0.4-2.0)
[2019-01-14 14:16] LABS: ALBUMIN 4.3 g/dL (3.5-5.0); ALKALINE PHOSPHATASE 63 U/L (38-126); ANION GAP 14.1 MEQ/L (5-15); BLOOD UREA NITROGEN 10 mg/dL (7-17); CHLORIDE 107 mmol/L (98-107); CK-Creatinine Phosphokinase 68 U/L (30-135); Calcium 9.5 mg/dL (8.4-10.2); Carbon Dioxide 26 mmol/L (22-30); Creatinine 1 0.59 mg/dL (0.52-1.04); Glucose 94 mg/dL (74-106); NT PRO BNP 251 pg/mL (0-450); SGOT/AST 24 U/L (14-36); SGPT/ALT 22 U/L (0-35); SODIUM 144 mmol/L (137-145)
[2019-01-14 14:23] LABS: TROPONIN < 0.012 ng/mL (0.000-0.034)
[2019-01-14] MEDS ORDERED: Sodium Chloride 0.9% 1000 ML 1,000 ML IV SCH (15:41)
[2019-01-14] MEDS ORDERED: TYLENOL 325 MG PO PRN (15:48)
[2019-01-14] MEDS: Levofloxacin 500MG/100ML D5W 500 MG/100 ML BAG IV SCH (16:16)
[2019-01-14] MEDS: Sodium Chloride 0.9% 1000 ML 1,000 ML IV SCH (17:31)
[2019-01-14 17:43] LABS: Lactic Acid 2.5 (0.4-2.0)
[2019-01-14] MEDS: ENOXAPARIN SODIUM SQ SCH (18:01)
[2019-01-14] MEDS ORDERED: DUONEB 0.5-3 MG/3 ml Neb IH SCH (19:00)
--- NOTE | 2019-01-14 19:32 | XRAY ---
Indication: Fever and cough. Comparison: None Portable chest demonstrates normal heart, lungs, and bony thorax with incidental right base calcified granuloma.
[2019-01-14] MEDS: Tessalon Perles 100 MG PO SCH (22:32)
[2019-01-14] MEDS: Valium 5 MG PO PRN (22:33)
[2019-01-15] MEDS: Sodium Chloride 0.9% 1000 ML 1,000 ML IV SCH ×3 (00:24→18:30)
[2019-01-15] MEDS ORDERED: Sodium Chloride 3 ML UD NEBULES IH ONE (01:35)
[2019-01-15] MEDS ORDERED: Xopenex 1.25 MG/0.5 ML UD NEBULE IH ONE ×2 (01:35→01:42)
[2019-01-15 06:25] LABS: Lactic Acid 2.7 (0.4-2.0)
[2019-01-15 06:28] LABS: Absolute Neutrophil Ct (ANC) 5.55 (1.4-6.9); BASOPHIL % 0.1 % (0.0-0.4); Basophil (Absolute #) 0.01 (0-0.4); Eosinophil (Absolute #) 0 (0-0.5); Hematocrit 34.8 % (35-47); Hemoglobin 11.6 gm/dl (12.0-16.0); Lymphocyte (Absolute #) 1.13 (1.0-4.6); Lymphocytes % 16.1 % (24.0-44.0); Mean Cell Volume 92.3 fl (78-100); Mean Corpuscular Hemoglobin 30.8 pg (26-32); Mean Corpuscular Hgb Concent. 33.3 g/dl (32-36); Mean Platelet Volume 11.6 fl (6-9.5); Monocyte (Absolute #) 0.34 (0.0-1.3); Monocytes % 4.8 % (0.0-12.0); Platelet Count 190 K/mm3 (150-450); Red Blood Count 3.77 M/mm3 (4.1-5.4); Red Cell Distribution Width 12.2 % (11.5-14.0)
[2019-01-15 06:47] LABS: ANION GAP 11.3 MEQ/L (5-15); BLOOD UREA NITROGEN 6 mg/dL (7-17); CHLORIDE 115 mmol/L (98-107); Calcium 7.6 mg/dL (8.4-10.2); Carbon Dioxide 22 mmol/L (22-30); Creatinine 1 0.37 mg/dL (0.52-1.04); Glucose 119 mg/dL (74-106); Potassium 3.7 mmol/L (3.5-5.1); SODIUM 144 mmol/L (137-145)
[2019-01-15] MEDS ORDERED: Xopenex 1.25 MG/0.5 ML UD NEBULE IH PRN (08:56)
[2019-01-15] MEDS ORDERED: Sodium Chloride 3 ML UD NEBULES IH PRN (09:03)
[2019-01-15] MEDS: ESTRACE 1 MG PO SCH (09:48)
[2019-01-15] MEDS: ROCEPHIN 1 Gm-D5w 50 ml Bag** 1 G/50 ML IVPB IV SCH (09:48)
[2019-01-15] MEDS: Robitussin AC Syrup Unit Dose Cup PO PRN ×3 (09:48→21:28)
[2019-01-15] MEDS: ENOXAPARIN SODIUM SQ SCH (09:49)
[2019-01-15] MEDS ORDERED: NON-FORMULARY ITEM (Estradiol [Estrace] 0.5 MG) PO SCH (10:00)
[2019-01-15] MEDS: Tessalon Perles 100 MG PO SCH ×3 (10:26→21:28)
[2019-01-15] MEDS: Levofloxacin 500MG/100ML D5W 500 MG/100 ML BAG IV SCH (10:37)
[2019-01-15] MEDS: Valium 5 MG PO PRN (21:28)
[2019-01-16 07:31] VITALS: BP 118/59; O2SAT 97
[2019-01-16] MEDS: Robitussin AC Syrup Unit Dose Cup PO PRN (08:09)
[2019-01-16 10:57] VITALS: PULSE 72
[2019-01-16] MEDS: ENOXAPARIN SODIUM SQ SCH (11:29)
[2019-01-16] MEDS: Levofloxacin 500MG/100ML D5W 500 MG/100 ML BAG IV SCH (11:31)
[2019-01-16] MEDS: ROCEPHIN 1 Gm-D5w 50 ml Bag** 1 G/50 ML IVPB IV SCH (11:31)
[2019-01-16] MEDS: Tessalon Perles 100 MG PO SCH (11:31)
[2019-01-16] MEDS: ESTRACE 1 MG PO SCH (11:31)
--- NOTE | 2019-01-17 09:09 | HP ---
CHIEF COMPLAINT: Cough and shortness of breath. HISTORY OF PRESENT ILLNESS: The patient is a 38 year-old white female who reports she has been having trouble with cough. She was seen at the [facility] and started on prednisone and cough medications. As she had not gotten any better and reported she gets into these coughing jags where she has been short of breath and became scared. She was therefore brought into the emergency room. She reports her whole family is sick with similar things. As she was going to the emergency room the rest of the family was going to the [facility]. HOME MEDICATIONS: Currently prednisone 10 mg a day, Estradiol, Tessalon Perles which had been recently added for her cough. ALLERGIES: AZITHROMYCIN. HYDROCODONE. NAPROXEN. PHYSICAL EXAMINATION: The patient's vital signs on admission showed temperature 97.7F, pulse 77, respiratory rate 20 and blood pressure 82/72. O2 saturation 99%. HEENT: Normocephalic, atraumatic. Pupils equal round reactive to light. Extraocular movements intact. Oropharynx is pink and moist. She is speaking in whispers presently. NECK: Supple without lymphadenopathy, thyromegaly or JVD. CHEST: Completely clear bilaterally. HEART: Regular rate and rhythm. ABDOMEN: Soft. No palpable mass. EXTREMITIES: Without cyanosis, clubbing or edema. NEUROLOGIC: The patient is alert and oriented x3. No focal deficits were noted. LAB DATA AND TESTS: The patient's laboratory studies revealed initially white count 9,000, hemoglobin 14.4, PLT count 260,000. Her metabolic panel was entirely normal with BUN 10, creatinine 0.59. Electrolytes were normal. Liver enzymes were normal. Troponins normal. CPK normal. ProBNP is normal. The patient's lactic acid however was elevated at 4.5 but with IV fluids reduced to 2.5. Upon admission the patient's chest x-ray showed incidental right base granuloma but otherwise was clear. Her EKG was in sinus rhythm. ASSESSMENT: A patient with presenting with tracheitis, persistent cough. She has been admitted to the hospital for IV fluid hydration, due to the presence of elevation of her lactic acid. She is getting large amounts of IV fluids which has essentially resolved the issue. The patient is currently is comfortable at rest although she is coughing fairly significantly. We are adding Robitussin with Codeine Cough Syrup to help with the cough. She has been placed on IV fluids and empiric Levaquin.
== END 2019-01-16 12:18 | disposition home or self-care (01) ==
LOC: ED 13:01 → MED SURG 15:25
PROVIDERS: ADMIT Internal Medicine; ATTEND Internal Medicine
DX: J04.2 Acute laryngotracheitis (principal)
CPT/HCPCS: 36000; 36415; 71045; 80048; 80053; 82550; 83605; 83880; 84484; 85025; 87040; 93005; 93041; 94150; 94640; 94760; 94762; 96365; 96374; 99285; G0378; J0456; J0696; J1650; J1956; J2930; A9270-GY

== ENCOUNTER 2019-01-22 11:47 | Emergency (ER) | payer BC ==
[2019-01-22] MEDS ORDERED: Ativan 2 MG/1 ML VIAL IM ONE (12:15)
[2019-01-22] MEDS ORDERED: Robitussin AC Syrup Unit Dose Cup PO PRN (12:15)
--- NOTE | 2019-01-22 12:19 | ERPHSYRPT ---
- History of Present Illness Time Seen by Provider: 01/22/19 12:17 Source: patient Exam Limitations: no limitations Patient Subjective Stated Complaint: Pt states "I was admitted here for pneumonia on thursday and was discharged thursday. I am not getting any better, I feel like my heart is racing and I cannot stop coughing." Triage Nursing Assessment: Pt presented alert and oriented X 3, skin pwd Pt ambulates with an upright steady gait, able to speak in clear full sentences. Pt voice is higher pitched and raspy. Pt has persistant intermittant coughing. Physician History: Pt states "I was admitted here for pneumonia on thursday and was discharged thursday. I am not getting any better, I feel like my heart is racing and I cannot stop coughing." Timing/Duration: day(s) Activities at Onset: none Modifying Factors: Improves With: nothing Nitro Today/Relief: no nitro taken today Aspirin Treatment Today: no aspirin today Associated Symptoms: cough, other (palpitations), No shortness of breath, No chest pain, No fever Allergies/Adverse Reactions: azithromycin Allergy (Verified 01/14/19 13:11) Muscle Aches hydrocodone bitartrate [From Vicodin] Allergy (Verified 01/14/19 13:11) naproxen [From Naprosyn] Allergy (Verified 01/14/19 13:11) Home Medications: Benzonatate 100 mg PO TID 01/14/19 [History] D-Methorphan/PE/Acetaminophen [Theraflu Ms Severe Cold Pckt] 1 each PO UD [History] Diazepam 5 mg [Valium 5 MG] 5 mg PO HSPRN PRN 01/14/19 [History] Estradiol [Estrace] 0.5 mg PO DAILY 01/14/19 [History] Prednisone 10 mg [Deltasone 10 mg] 10 mg PO DAILY 01/14/19 [History] Codeine Phosphate/Guaifenesin [Codeine-Guaifen 10-100 mg/5 ml] 120 ml PO DAILY 01/22/19 [History] Hx Tetanus, Diphtheria Vaccination/Date Given: No Hx Influenza Vaccination/Date Given: No Hx Pneumococcal Vaccination/Date Given: No Immunizations Up to Date: Yes - Review of Systems Constitutional: No Fever, No Chills Eyes: No Symptoms Ears, Nose, & Throat: No Symptoms Respiratory: Cough, No Dyspnea Cardiac: Palpitations, No Chest Pain, No Edema, No Syncope Abdominal/Gastrointestinal: No Abdominal Pain, No Nausea, No Vomiting, No Diarrhea Genitourinary Symptoms: No Dysuria Musculoskeletal: No Back Pain, No Neck Pain Skin: No Rash Neurological: No Dizziness, No Focal Weakness, No Sensory Changes Psychological: No Symptoms Endocrine: No Symptoms All Other Systems: Reviewed and Negative - Past Medical History Pertinent Past Medical History: Yes Neurological History: Migraines ENT History: No Pertinent History Cardiac History: Deep Vein Thrombosis Respiratory History: No Pertinent History Endocrine Medical History: Hypothyroidism Musculoskeletal History: No Pertinent History GI Medical History: No Pertinent History History: No Pertinent History Psycho-Social History: Anxiety, Depression Female Reproductive Disorders: Endometriosis, Fibroids Other Medical History: intestinal malrotation surg x2 ,brain surg chiarii - Past Surgical History Past Surgical History: Yes Neuro Surgical History: Other Gastrointestinal: Appendectomy, Cholecystectomy Female Surgical History: Hysterectomy, Section, Tubal Ligation Other Surgical History: brain surg - Social History Smoking Status: Former smoker Exposure to second hand smoke: No Drug Use: none Patient Lives Alone: No - Female History Hx Last Menstrual Period: hysterectomy Hx Now: No - Nursing Vital Signs Nursing Vital Signs: Initial Vital Signs Temperature 98.6 F 01/22/19 11:57 Pulse Rate 86 01/22/19 11:57 Respiratory Rate 24 01/22/19 11:57 Blood Pressure 134/94 01/22/19 11:57 O2 Sat by Pulse Oximetry 100 01/22/19 11:57 Pain Scale Pain Intensity 6 - Physical Exam General Appearance: no apparent distress, alert Eye Exam: PERRL/EOMI, eyes nml inspection Ears, Nose, Throat Exam: normal ENT inspection, moist mucous membranes Neck Exam: normal inspection, non-tender, supple Respiratory Exam: normal breath sounds, lungs clear, No respiratory distress Cardiovascular Exam: regular rate/rhythm, normal heart sounds, No edema Gastrointestinal/Abdomen Exam: soft, No tenderness, No mass Back Exam: normal inspection, No CVA tenderness, No vertebral tenderness Extremity Exam: normal inspection, normal range of motion Neurologic Exam: alert, oriented x 3, cooperative, normal mood/affect, nml cerebellar function, sensation nml, No motor deficits Skin Exam: normal color, warm, dry Lymphatic Exam: No adenopathy SpO2: 100 - Course Nursing assessment & vital signs reviewed: Yes EKG Interpreted by Me: Sinus Rhythm - Radiology Exams Chest X-ray Interpretation: Reviewed by me Ordered Tests: Active Orders 24 hr Category Date Time Status CHEST 2 VIEWS (PA AND LAT) Stat Exams 01/22/19 12:15 Taken Medication Summary Generic Name Dose Route Start Last Admin Trade Name Freq PRN Reason Stop Dose Admin Guaifenesin/Codeine Phosphate 10 ml 01/22/19 12:15 01/22/19 12:25 Robitussin Ac Syrup Unit Dose Cup PO 02/21/19 12:14 10 ml QIDP PRN Administration COUGH Discontinued Medications Generic Name Dose Route Start Last Admin Trade Name Freq PRN Reason Stop Dose Admin Lorazepam 2 mg 01/22/19 12:15 01/22/19 12:25 Ativan 2 Mg/1 Ml Vial IM 01/22/19 12:16 2 mg STAT ONE Administration Lorazepam Confirm 01/22/19 12:20 Ativan 2 Mg/1 Ml Vial Administered 01/22/19 12:21 Dose 2 mg .ROUTE .STK-MED ONE - Progress Progress: improved Air Movement: good Blood Culture(s) Obtained: No Antibiotics given: No Counseled pt/family regarding: diagnosis, need for follow-up, rad results - Departure Departure Disposition: Home Clinical Impression: Cough, Palpitations, Bronchitis Condition: Stable Critical Care Time: No Referrals: KALIE SY [Primary Care Provider] - Instructions: Palpitations (DC), Cough, Adult (DC) Additional Instructions: Discharge/Care Plan MERLYN LUX was seen on 01/22/19 in the Emergency Room. The patient was counseled regarding Diagnosis,Lab results, Imaging studies, need for follow up and when to return to the Emergency Room. Prescriptions given: Discharge Note I have spoken with the patient and/or caregivers. I have explained the patient' s condition, diagnosis and treatment plan based on the information available to me at this time. I have answered the patient's and/or caregiver's questions and addressed any concerns. The patient and/or caregivers have as good understanding of the patient's diagnosis, condition and treatment plan as can be expected at this point. The vital signs have been stable. The patient's condition is stable and appropriate for discharge from the emergency department. The patient will pursue further outpatient evaluation with the primary care physician or other designated or consulting physician as outlined in the discharge instructions. The patient and/or caregivers are agreeable to this plan of care and follow-up instructions have been explained in detail. The patient and/or caregivers have received these instruction. The patient/and or caregivers are aware that any significant change in condition or worsening of symptoms should prompt an immediate return to this or the closest emergency department or call 911. MERLYN LUX was seen on 01/22/19 n the Emergency Room. At that time you were treated for an emergent condition, during your visit Laboratory, Radiology and/or other procedures may have been ordered. It is very important that you follow-up with your Primary Care Physician KALIE SY within the next 24- 48 hours to review your Emergency Room visit and the final results of testing that was ordered. Some test results such as Urine Cultures, Blood Cultures, and other cultures if ordered will not be finalized for 24-48 hours. If you do not have a Primary Care Provider please call the medical records department at [phone] to obtain a copy of your results or you may sign into our patient portal to obtain these results by visiting us @ [email or web address] and completing the following steps: 1. Click on the Patient Portal link 2. Click the Patient Self Enrollment Link to complete the enrollment form and entering your 3. Once the enrollment form is completed you will receive an email with a temporary ID and password at the email address you provided. 4. Next choose a user name and password. Your user name must be at least 4 characters long and your password must be at least 4 characters long. 5. Choose a security question from the list and provide your answer to the question. If you already have signed into the Health Portal you may access your Health Care Information 08/09 by the following steps: 1. Login to our website @ [email or web address] 2. Enter your original user name and password. FAQS [facility] Portal is an online tool that contains your Lab Results, Radiology Reports, Visit History, Discharge Instructions and Health Summary Lab and Radiology Results will not be available for 72 hours on the portal. The Portal is a secure site, passwords are encryted and URLs are re-written so they cannot be copied and pasted. You and authorized family members are the only ones who can access your Portal. Also there is a timeout feature that protects your information if you leave the Portal page open. If you have technical difficulty please use the Contact Us link on the page this will allow you to submit any questions you have regarding the Portal or you may contact the Medical Record Department at [phone] ext [phone]. Prescriptions: Hydroxyzine HCl 25 mg [Atarax 25 mg] 25 mg PO QIDPRN PRN #30 tablet PRN Reason: Anxiety Guaifenesin/Codeine Phosphate [Robitussin AC Syrup] 5 ml PO QID #120 ml
[2019-01-22] MEDS ORDERED: Ativan 2 MG/1 ML VIAL ONE (12:20)
[2019-01-22] MEDS ORDERED: Robitussin AC Syrup Unit Dose Cup ONE (12:20)
[2019-01-22 13:34] VITALS: BP 106/68; PULSE 94; O2SAT 98
--- NOTE | 2019-01-22 19:54 | XRAY ---
Indication: Cough and short of breath. Comparison: January 14, 2019. PA/lateral chest again demonstrates normal heart, lungs, and bony thorax.
== END 2019-01-22 13:41 | disposition home or self-care (01) ==
LOC: ED 11:47
DX: R05 Cough (principal); R00.2 Palpitations; J40 Bronchitis, not specified as acute or chronic
CPT/HCPCS: 71046; 96372; 99284; J2060; A9270-GY

== ENCOUNTER 2020-02-15 21:41 | Emergency (ER) | payer BC, MEDICAID, SELFPAY ==
[2020-02-15] MEDS ORDERED: TYLENOL EXTRA STRENGTH 500 MG PO STA (22:03)
--- NOTE | 2020-02-15 22:03 | ERPHSYRPT ---
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 Pt got toe caught in blanket as she was getting up and toe bent underneath her. Pt heard and felt a pop. Toe nail has some bruising, no edema noted. pt unable to bend toe at joint. Physician History: Patient is here with a toe injury. Occurred just prior to arrival. Patient jammed her toe in a dragging motion on the door. No other falls no trauma. No other toe injury. 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 Modifying factors/associated signs and symptoms: none tried Timing/Duration: today Severity: moderate Modifying Factors: Improves With: other Associated Symptoms: other Allergies/Adverse Reactions: azithromycin Allergy (Verified 02/15/20 21:53) Muscle Aches hydrocodone bitartrate [From Vicodin] Allergy (Verified 02/15/20 21:53) naproxen [From Naprosyn] Allergy (Verified 02/15/20 21:53) Home Medications: Diazepam 5 mg [Valium 5 MG] 5 mg PO HSPRN PRN 01/14/19 [History] Estradiol [Estrace] 0.5 mg PO DAILY 01/14/19 [History] Hx Tetanus, Diphtheria Vaccination/Date Given: Yes Hx Influenza Vaccination/Date Given: No Hx Pneumococcal Vaccination/Date Given: No Immunizations Up to Date: Yes Travel Risk - International Travel Have you traveled outside of the country in past 3 weeks: No - Coronavirus Screening Are you exhibiting any of the following symptoms?: No Close contact with a COVID-19 positive Pt in past 14-21 Days: No - Review of Systems Constitutional: No Fever, No Chills Eyes: No Symptoms Ears, Nose, & Throat: No Symptoms Respiratory: No Cough, No Dyspnea Cardiac: No Chest Pain, No Edema, No Syncope Abdominal/Gastrointestinal: No Abdominal Pain, No Nausea, No Vomiting, No Diarrhea Genitourinary Symptoms: No Dysuria Musculoskeletal: Other (left great toe injury), No Back Pain, No Neck Pain Skin: No Rash Neurological: No Dizziness, No Focal Weakness, No Sensory Changes Psychological: No Symptoms Endocrine: No Symptoms All Other Systems: Reviewed and Negative - Past Medical History Pertinent Past Medical History: Yes Neurological History: Migraines ENT History: No Pertinent History Cardiac History: Deep Vein Thrombosis Respiratory History: No Pertinent History Endocrine Medical History: Hypothyroidism Musculoskeletal History: No Pertinent History GI Medical History: No Pertinent History History: No Pertinent History Psycho-Social History: Anxiety, Depression Female Reproductive Disorders: Endometriosis, Fibroids Other Medical History: intestinal malrotation surg x2 ,brain surg chiarii - Past Surgical History Past Surgical History: Yes Neuro Surgical History: Other Cardiac: No Pertinent History Respiratory: No Pertinent History Gastrointestinal: Appendectomy, Cholecystectomy Female Surgical History: Hysterectomy, Section, Tubal Ligation Other Surgical History: brain surg - Social History Smoking Status: Former smoker Exposure to second hand smoke: No Drug Use: none Patient Lives Alone: No - Female History Hx Now: No - Nursing Vital Signs Nursing Vital Signs: Initial Vital Signs Temperature 97.7 F 02/15/20 21:45 Pulse Rate 82 02/15/20 21:45 Respiratory Rate 16 02/15/20 21:45 Blood Pressure 139/81 02/15/20 21:45 O2 Sat by Pulse Oximetry 99 02/15/20 21:45 Pain Scale Pain Intensity 6 - Physical Exam General Appearance: no apparent distress, alert Eye Exam: PERRL/EOMI, eyes nml inspection Ears, Nose, Throat Exam: normal ENT inspection, TMs normal, pharynx normal, moist mucous membranes Neck Exam: normal inspection, non-tender, supple, full range of motion Respiratory Exam: normal breath sounds, lungs clear, No respiratory distress Cardiovascular Exam: regular rate/rhythm, normal heart sounds, normal peripheral pulses Gastrointestinal/Abdomen Exam: soft, normal bowel sounds, No tenderness, No mass Back Exam: normal inspection, normal range of motion, No CVA tenderness, No vertebral tenderness Extremity Exam: normal inspection, normal range of motion, pelvis stable Neurologic Exam: alert, oriented x 3, cooperative, normal mood/affect, nml cerebellar function, nml station & gait, sensation nml, No motor deficits Skin Exam: normal color, warm, dry, No rash Lymphatic Exam: No adenopathy SpO2 Interpretation: normal SpO2: 99 Comments: 02/15/20 22:06 left great toe pain. No obvious deformity, sensation intact, 2+ capillary refill, 2 point tactile discrimination intact. 5 out of 5 strength. Full range of motion with some pain. Compartments are soft, nontender. Overlying skin shows no tenting, bruising, ecchymosis. - Course Nursing assessment & vital signs reviewed: Yes Ordered Tests: Active Orders 24 hr Category Date Time Status TOE(S) (MIN 2 VIEWS) Stat Exams 02/15/20 22:15 Taken Medication Summary Discontinued Medications Generic Name Dose Route Start Last Admin Trade Name Sulaiman PRN Reason Stop Dose Admin Acetaminophen 1,000 mg 02/15/20 22:03 02/15/20 22:10 Tylenol Extra Strength 500 Mg PO 02/15/20 22:04 1,000 mg STAT STA Administration Acetaminophen Confirm 02/15/20 22:09 Tylenol Extra Strength 500 Mg Administered 02/15/20 22:10 Dose 1,000 mg .ROUTE .STK-MED ONE Ibuprofen 600 mg 02/15/20 22:03 02/15/20 22:10 Motrin 600 Mg PO 02/15/20 22:04 600 mg STAT ONE Administration Ibuprofen Confirm 02/15/20 22:09 Motrin 600 Mg Administered 02/15/20 22:10 Dose 600 mg .ROUTE .STK-MED ONE - Progress Progress: improved Progress Note: 02/15/20 22:06 We will give Tylenol and ibuprofen here in the emergency department. We will also obtain an x-ray 02/15/20 22:29 X-ray shows no obvious fracture my read. At this point time patient will need follow-up with podiatry or her PCP. She was placed in a postop shoe. She should return here for any new or changing symptoms. Plan of care was discussed with patient and all questions answered. The patient is agreeable to be discharged home and both verbal and printed discharge instructions were prov ided.The patient agreed to seek outpatient follow up as discussed. The patient was given strict instructions to return to the emergency department for worsening symptoms or any other emergent concerns. The patient verbalized understanding. Counseled pt/family regarding: diagnosis, need for follow-up, rad results - Departure Departure Disposition: Home Clinical Impression: Injury of toe on left foot Condition: Stable Critical Care Time: No Referrals: KALIE SY [Primary Care Provider] - Instructions: Toe Injury (DC)
[2020-02-15] MEDS ORDERED: TYLENOL EXTRA STRENGTH 500 MG ONE (22:09)
[2020-02-15] MEDS ORDERED: MOTRIN 600 MG ONE (22:09)
[2020-02-15] MEDS: MOTRIN 600 MG PO ONE ×2 (22:10→22:32)
[2020-02-15 22:49] VITALS: BP 119/71; PULSE 86; O2SAT 96
--- NOTE | 2020-02-16 08:52 | XRAY ---
Indication: Great toe pain following hyperextension injury. Comparison: None 3 view left forefoot obtained. No bony, articular, or soft tissue abnormalities.
== END 2020-02-15 22:49 | disposition home or self-care (01) ==
LOC: ED 21:41
DX: M79.675 Pain in left toe(s) (principal); W23.0XXA Caught, crushed, jammed, or pinched between moving objects, initial encounter
CPT/HCPCS: 73660; 99284; A9270-GY

== ENCOUNTER 2020-10-27 09:36 | Emergency (ER) | payer MEDICAID, OTHER ==
--- NOTE | 2020-10-27 10:31 | ERPHSYRPT ---
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 I have not had a bowel movement in 4 days." Triage Nursing Assessment: Pt presented alert and oriented X 3, skin wpd Pt ambulates with an upright steady gait, able to speak in clear full sentences pt in no apprent respiratory distress. Pt resting comfortably on the bed. 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 I have not had a bowel movement in 4 days." Timing/Duration: day(s) (four days) Abdominal Pain Onset Location: RUQ, generalized abdomen Pain Radiation: no radiation Severity of Pain-Max: moderate Severity of Pain-Current: moderate Modifying Factors: Improves With: nothing Associated Symptoms: loss of appetite, nausea, other (constipation) Allergies/Adverse Reactions: azithromycin Allergy (Verified 02/15/20 21:53) Muscle Aches hydrocodone bitartrate [From Vicodin] Allergy (Verified 02/15/20 21:53) naproxen [From Naprosyn] Allergy (Verified 02/15/20 21:53) Home Medications: Diazepam 5 mg [Valium 5 MG] 5 mg PO HSPRN PRN 01/14/19 [History] Estradiol [Estrace] 0.5 mg PO DAILY 01/14/19 [History] Ondansetron ODT 4 MG [Zofran Odt 4 mg] 4 mg PO Q6H PRN PRN 10/27/20 [History] Hx Tetanus, Diphtheria Vaccination/Date Given: No Hx Influenza Vaccination/Date Given: No Hx Pneumococcal Vaccination/Date Given: No Immunizations Up to Date: Yes Travel Risk - International Travel Have you traveled outside of the country in past 3 weeks: No - Coronavirus Screening Are you exhibiting any of the following symptoms?: No Close contact with a COVID-19 positive Pt in past 14-21 Days: No - Vaccine Status Have you recieved a Covid-19 vaccination: No - Review of Systems Constitutional: No Fever, No Chills Eyes: No Symptoms Ears, Nose, & Throat: No Symptoms Respiratory: No Cough, No Dyspnea Cardiac: No Chest Pain, No Edema, No Syncope Abdominal/Gastrointestinal: Abdominal Pain, Nausea, Constipation, No Vomiting, No Diarrhea Genitourinary Symptoms: No Dysuria Musculoskeletal: No Back Pain, No Neck Pain Skin: No Rash Neurological: No Dizziness, No Focal Weakness, No Sensory Changes Psychological: No Symptoms Endocrine: No Symptoms All Other Systems: Reviewed and Negative - Past Medical History Pertinent Past Medical History: Yes Neurological History: Migraines ENT History: No Pertinent History Cardiac History: Deep Vein Thrombosis Respiratory History: No Pertinent History Endocrine Medical History: Hypothyroidism Musculoskeletal History: No Pertinent History GI Medical History: No Pertinent History History: No Pertinent History Psycho-Social History: Anxiety, Depression Female Reproductive Disorders: Endometriosis, Fibroids Other Medical History: intestinal malrotation surg x2 ,brain surg chiarii - Past Surgical History Past Surgical History: Yes Neuro Surgical History: Other Cardiac: No Pertinent History Respiratory: No Pertinent History Gastrointestinal: Appendectomy, Cholecystectomy Female Surgical History: Hysterectomy, Section, Tubal Ligation Other Surgical History: brain surg - Social History Smoking Status: Former smoker Exposure to second hand smoke: No Drug Use: none Patient Lives Alone: No - Female History Hx Last Menstrual Period: hysterectomy 2017 Hx Now: No - Nursing Vital Signs Nursing Vital Signs: Initial Vital Signs Temperature 97.7 F 10/27/20 10:00 Pulse Rate 99 H 10/27/20 10:00 Respiratory Rate 20 10/27/20 10:00 Blood Pressure 131/84 10/27/20 10:00 O2 Sat by Pulse Oximetry 99 10/27/20 10:00 Pain Scale Pain Intensity 4 - Physical Exam General Appearance: no apparent distress, alert Eye Exam: PERRL/EOMI, eyes nml inspection Ears, Nose, Throat Exam: normal ENT inspection, pharynx normal, moist mucous membranes Neck Exam: normal inspection, non-tender, supple, full range of motion Respiratory Exam: normal breath sounds, lungs clear, No respiratory distress Cardiovascular Exam: regular rate/rhythm, normal heart sounds Gastrointestinal/Abdomen Exam: soft, tenderness (generalised), No mass, No guar ding, No pulsatile mass, No rebound, No organomegaly, No splenomegaly Back Exam: normal inspection, normal range of motion, No CVA tenderness, No vertebral tenderness Extremity Exam: normal inspection, normal range of motion, pelvis stable Neurologic Exam: alert, oriented x 3, cooperative, normal mood/affect, nml cerebellar function, sensation nml, No motor deficits Skin Exam: normal color, warm, dry SpO2: 99 - Course Nursing assessment & vital signs reviewed: Yes - CT Exams Abdomen/Pelvis CT Interpretation: Tele-radiologist Report (tiny renal stones, mild hydronephrosis, no obstruction) Ordered Tests: Active Orders 24 hr Category Date Time Status ABDOMEN AND PELVIS W/0 CONTRAS [CT] Stat Exams 10/27/20 10:34 Taken AMYLASE Stat Lab 10/27/20 11:22 Completed CBC W DIFF Stat Lab 10/27/20 11:22 Completed CMP Stat Lab 10/27/20 11:22 Completed LIPASE Stat Lab 10/27/20 11:22 Completed UA W/RFX UR CULTURE Stat Lab 10/27/20 10:44 Completed Medication Summary Discontinued Medications Generic Name Dose Route Start Last Admin Trade Name Sulaiman PRN Reason Stop Dose Admin Sodium Chloride 1,000 mls @ 999 mls/hr 10/27/20 10:34 10/27/20 12:26 Sodium Chloride 0.9% 1000 Ml IV 10/27/20 11:34 Infused .Q1H1M STA Infusion Sodium Chloride Confirm 10/27/20 11:07 Sodium Chloride 0.9% 1000 Ml Administered 10/27/20 11:08 Dose 1,000 mls @ ud .ROUTE .STK-MED ONE Lab/Rad Data: Laboratory Result Diagrams 10/27/20 11:22 10/27/20 11:22 Laboratory Results 10/27/20 10/27/20 10/27/20 Range/Units 11:22 11:22 10:44 WBC 4.1 (4.0-10.5) K/mm3 RBC 4.52 (4.1-5.4) M/mm3 Hgb 13.7 (12.0-16.0) gm/dl Hct 41.5 (35-47) % MCV 91.8 (78-100) fl MCH 30.3 (26-32) pg MCHC 33.0 (32-36) g/dl RDW 11.8 (11.5-14.0) % Plt Count 244 (150-450) K/mm3 MPV 11.7 H (7.5-11.0) fl Gran % 48.6 (36.0-66.0) % Eos # (Auto) 0.04 (0-0.5) Absolute Lymphs (auto) 1.73 (1.0-4.6) Absolute Monos (auto) 0.27 (0.0-1.3) Lymphocytes % 42.7 (24.0-44.0) % Monocytes % 6.7 (0.0-12.0) % Eosinophils % 1.0 (0.00-5.0) % Basophils % 1.0 (0.0-0.4) % Absolute Granulocytes 1.97 (1.4-6.9) Basophils # 0.04 (0-0.4) Sodium 140 (137-145) mmol/L Potassium 3.8 (3.5-5.1) mmol/L Chloride 102 (98-107) mmol/L Carbon Dioxide 27 (22-30) mmol/L Anion Gap 13.8 (5-15) MEQ/L BUN 6 L (7-17) mg/dL Creatinine 0.69 (0.52-1.04) mg/dL Estimated GFR > 60.0 ML/MIN Glucose 81 (74-106) mg/dL Calcium 9.3 (8.4-10.2) mg/dL Total Bilirubin 0.50 (0.2-1.3) mg/dL AST 28 (14-36) U/L ALT 19 (0-35) U/L Alkaline Phosphatase 59 (38-126) U/L Serum Total Protein 7.2 (6.3-8.2) g/dL Albumin 4.2 (3.5-5.0) g/dL Amylase 67 (30-110) U/L Lipase 74 (23-300) U/L Urine Color YELLOW (YELLOW) Urine Appearance CLEAR (CLEAR) Urine pH 7.0 (5-6) Ur Specific Disney 1.004 (1.005-1.025) Urine Protein NEGATIVE (Negative) Urine Ketones NEGATIVE (NEGATIVE) Urine Blood NEGATIVE (0-5) Monty/ul Urine Nitrite NEGATIVE (NEGATIVE) Urine Bilirubin NEGATIVE (NEGATIVE) Urine Urobilinogen NEGATIVE (0-1) mg/dL Ur Leukocyte Esterase NEGATIVE (NEGATIVE) Urine WBC (Auto) 0-2 (0-5) /HPF Urine RBC (Auto) NONE (0-2) /HPF U Epithel Cells (Auto) NONE (FEW) /HPF Urine Bacteria (Auto) NONE (NEGATIVE) /HPF Urine Mucus (Auto) SLIGHT (NEGATIVE) /HPF Urine Culture Reflexed NO (NO) Urine Glucose NEGATIVE (NEGATIVE) mg/dL - Progress Progress: improved Counseled pt/family regarding: lab results, diagnosis, need for follow-up, rad results - Departure Departure Disposition: Home Clinical Impression: Renal colic on right side, Constipation by delayed colonic transit Condition: Stable Critical Care Time: Yes Critical Care Time(excluding separately billable procedures): Critical 30-74 mins Referrals: KALIE SY [Primary Care Provider] - Instructions: Acute Abdomen (Belly Pain), Adult (DC), Kidney Stones in Adults, Kidney Stone Diet, Constipation, Adult (DC) Additional Instructions: Discharge/Care Plan MERLYN LUX was seen on 10/27/20 in the Emergency Room. The patient was counseled regarding Diagnosis,Lab results, Imaging studies, need for follow up and when to return to the Emergency Room. Prescriptions given: Discharge Note I have spoken with the patient and/or caregivers. I have explained the patient's condition, diagnosis and treatment plan based on the information available to me at this time. I have answered the patient's and/or caregiver's questions and addressed any concerns. The patient and/or caregivers have as good understanding of the patient's diagnosis, condition and treatment plan as can be expected at this point. The vital signs have been stable. The patient's condition is stable and appropriate for discharge from the emergency department. The patient will pursue further outpatient evaluation with the primary care physician or other designated or consulting physician as outlined in the discharge instructions. The patient and/or caregivers are agreeable to this plan of care and follow-up instructions have been explained in detail. The patient and/or caregivers have received these instruction. The patient/and or caregivers are aware that any significant change in condition or worsening of symptoms should prompt an immediate return to this or the closest emergency department or call 911. MERLYN LUX was seen on 10/27/20 n the Emergency Room. At that time you were treated for an emergent condition, during your visit Laboratory, Radiology and/or other procedures may have been ordered. It is very important that you follow-up with your Primary Care Physician KALIE SY within the next 24- 48 hours to review your Emergency Room visit and the final results of testing that was ordered. Some test results such as Urine Cultures, Blood Cultures, and other cultures if ordered will not be finalized for 24-48 hours. If you do not have a Primary Care Provider please call the medical records department at [phone] to obtain a copy of your results or you may sign into our patient portal to obtain these results by visiting us @ [email or web address] and completing the following steps: 1. Click on the Patient Portal link 2. Click the Patient Self Enrollment Link to complete the enrollment form and entering your 3. Once the enrollment form is completed you will receive an email with a temporary ID and password at the email address you provided. 4. Next choose a user name and password. Your user name must be at least 4 characters long and your password must be at least 4 characters long. 5. Choose a security question from the list and provide your answer to the question. If you already have signed into the Health Portal you may access your Health Care Information 08/09 by the following steps: 1. Login to our website @ [email or web address] 2. Enter your original user name and password. FAQS The [facility] Health Portal is an online tool that contains your Lab Results, Radiology Reports, Visit History, Discharge Instructions and Health Summary Lab and Radiology Results will not be available for 72 hours on the portal. The Portal is a secure site, passwords are encryted and URLs are re-written so they cannot be copied and pasted. You and authorized family members are the only ones who can access your Portal. Also there is a timeout feature that protects your information if you leave the Portal page open. If you have technical difficulty please use the Contact Us link on the page this will allow you to submit any questions you have regarding the Portal or you may contact the Medical Record Department at [phone]. Please take MiraLAX or Metamucil powder mixed in with water or coffee and take it twice a day. Drinks lots of p.o. fluid to facilitate normal bowel movement.
[2020-10-27] MEDS ORDERED: Sodium Chloride 0.9% 1000 ML 1,000 ML IV STA (10:34)
[2020-10-27] MEDS ORDERED: Sodium Chloride 0.9% 1000 ML 1,000 ML ONE (11:07)
[2020-10-27 11:46] LABS: Absolute Neutrophil Ct (ANC) 1.97 (1.4-6.9); Basophil (Absolute #) 0.04 (0-0.4); Eosinophil (Absolute #) 0.04 (0-0.5); Hematocrit 41.5 % (35-47); Hemoglobin 13.7 gm/dl (12.0-16.0); Lymphocyte (Absolute #) 1.73 (1.0-4.6); Lymphocytes % 42.7 % (24.0-44.0); Mean Cell Volume 91.8 fl (78-100); Mean Corpuscular Hemoglobin 30.3 pg (26-32); Mean Platelet Volume 11.7 fl (7.5-11.0); Monocyte (Absolute #) 0.27 (0.0-1.3); Monocytes % 6.7 % (0.0-12.0); Neutrophil % 48.6 % (36.0-66.0); Platelet Count 244 K/mm3 (150-450); Red Blood Count 4.52 M/mm3 (4.1-5.4); Red Cell Distribution Width 11.8 % (11.5-14.0); White Blood Count 4.1 K/mm3 (4.0-10.5)
[2020-10-27 11:53] LABS: ALBUMIN 4.2 g/dL (3.5-5.0); ALKALINE PHOSPHATASE 59 U/L (38-126); AMYLASE 67 U/L (30-110); ANION GAP 13.8 MEQ/L (5-15); BLOOD UREA NITROGEN 6 mg/dL (7-17); CHLORIDE 102 mmol/L (98-107); Calcium 9.3 mg/dL (8.4-10.2); Carbon Dioxide 27 mmol/L (22-30); Creatinine 1 0.69 mg/dL (0.52-1.04); EST GLOMERULAR FILTRATION RATE > 60.0 ML/MIN; Glucose 81 mg/dL (74-106); LIPASE 74 U/L (23-300); Potassium 3.8 mmol/L (3.5-5.1); SGOT/AST 28 U/L (14-36); SGPT/ALT 19 U/L (0-35); SODIUM 140 mmol/L (137-145); Total Protein 7.2 g/dL (6.3-8.2)
[2020-10-27 12:32] LABS: Appearance CLEAR (CLEAR); Bilirubin NEGATIVE (NEGATIVE); Blood NEGATIVE Ery/ul (0-5); Glucose NEGATIVE (NEGATIVE); Ketones NEGATIVE (NEGATIVE); Leukocyte Esterase NEGATIVE (NEGATIVE); Mucus SLIGHT /HPF (NEGATIVE); Nitrite NEGATIVE (NEGATIVE); Protein,Urine Dip NEGATIVE (Negative); Specific Gravity 1.004 (1.005-1.025); Urobilinogen NEGATIVE mg/dL (0-1); WBC 0-2 /HPF (0-5)
[2020-10-27 14:35] VITALS: BP 110/76; PULSE 84; O2SAT 98
--- NOTE | 2020-10-27 20:07 | XRAY ---
Indication: Right abdomen pain. Multiple contiguous images obtained through the abdomen and pelvis without contrast. Comparison: July 02, 2016. Lung bases again demonstrates minimal bibasilar fibrosis/scarring and tiny right lower lobe calcified granuloma. No infiltrate or effusion. Heart not enlarged. Noncontrasted stomach and bowel loops appear nonobstructed. Again small bowel loops with abnormally in the right hemiabdomen. New mild diffuse scattered colonic fecal debris throughout including rectum. Appendectomy, cholecystectomy, and hysterectomy reported. No free fluid/air. Stable nonobstructing left renal punctate calculus. Urinary bladder is now markedly distended concerning for outlet obstruction versus neurogenic bladder. Remaining liver, pancreas, spleen, adrenal glands, kidneys, ureters, bladder, and aorta are unremarkable for noncontrast exam. Osseous structures intact. Interval ventral hernia repair. Impression: 1. New mild diffuse fecal stasis. 2. Markedly distended urinary bladder. Rule out outlet obstruction versus neurogenic bladder. 3. Again nonobstructing left renal punctate calculus. 4. Remaining CT abdomen/pelvis without contrast exam is negative. Comment: Preliminary interpretation made by [facility]. No critical discrepancy.
== END 2020-10-27 14:35 | disposition home or self-care (01) ==
LOC: ED 09:36
DX: N23 Unspecified renal colic (principal); K59.01 Slow transit constipation; K31.84 Gastroparesis; Q43.3 Congenital malformations of intestinal fixation; R63.0 Anorexia; R11.0 Nausea; R10.11 Right upper quadrant pain; Z79.899 Other long term (current) drug therapy; E03.9 Hypothyroidism, unspecified
CPT/HCPCS: 36000; 36415; 74176; 80053; 81001; 82150; 83690; 85025; 99284; 99291

== ENCOUNTER 2022-02-21 13:07 | Emergency (ER) | payer BC ==
--- NOTE | 2022-02-21 13:22 | ERPHSYRPT ---
- History of Present Illness Time Seen by Provider: 02/21/22 13:22 Historian: patient Exam Limitations: no limitations Physician History: This is a 41-year-old white female patient who has a history of intestinal malrotation and since November 2021 she has been having intermittent abdominal pain. She is had associated weight loss of 20 pounds since November 2021. 3 kolton es a week patient received an infusion of normal saline and she received a liter infusion this morning. She sees Dr. Saleem in [facility] as her surgeon. In the last couple days and especially today patient stated that she vomited once, feels lightheaded, shaky and dizzy. She has no chest pain. She has no diarrhea symptoms. Patient states that her abdominal pain is generalized and uncomfortable but not severe. She has not been able to tolerate much oral intake today. She put her self on a liquid diet since November 2021 because she has abdominal pain intermittently when she eats solid foods. Patient also states that she feels full often. Patient has had abdominal surgery to help correct complications of her intestinal malrotation in 2015 and 2016. Timing/Duration: intermittent (Over the last several weeks), worse Quality: fullness (Today), pressure Abdominal Pain Onset Location: generalized abdomen Pain Radiation: no radiation Severity of Pain-Max: mild (To moderate) Severity of Pain-Current: mild Associated Symptoms: loss of appetite, nausea, vomiting (Once), No shortness of breath Previous symptoms: same symptoms as today, no recent treatment Allergies/Adverse Reactions: azithromycin Allergy (Verified 02/17/22 14:38) Muscle Aches hydrocodone bitartrate [From Vicodin] Allergy (Verified 02/17/22 14:38) naproxen [From Naprosyn] Allergy (Verified 02/17/22 14:38) tramadol Adverse Reaction (Verified 02/17/22 14:38) Nausea and Vomiting Home Medications: Ondansetron ODT 4 MG [Zofran Odt 4 mg] 4 mg PO Q6H PRN PRN 10/27/20 [History] Hx Tetanus, Diphtheria Vaccination/Date Given: No Hx Influenza Vaccination/Date Given: No Hx Pneumococcal Vaccination/Date Given: No Travel Risk - International Travel Have you traveled outside of the country in past 3 weeks: No - Coronavirus Screening Are you exhibiting any of the following symptoms?: Yes Symptoms: Vomiting/Diarrhea, Headaches/Body Aches/Fatigue Close contact with a COVID-19 positive Pt in past 14-21 Days: No - Vaccine Status Have you recieved a Covid-19 vaccination: No - Review of Systems Constitutional: Weakness Eyes: No Symptoms Ears, Nose, & Throat: No Symptoms Respiratory: No Symptoms Cardiac: No Symptoms Abdominal/Gastrointestinal: Abdominal Pain, Nausea (Generalized), Vomiting (Once), No Diarrhea Genitourinary Symptoms: No Symptoms Musculoskeletal: No Symptoms Skin: No Symptoms Neurological: No Symptoms Psychological: No Symptoms Endocrine: No Symptoms Hematologic/Lymphatic: No Symptoms Immunological/Allergic: No Symptoms All Other Systems: Reviewed and Negative - Past Medical History Pertinent Past Medical History: Yes Neurological History: Migraines ENT History: No Pertinent History Cardiac History: Deep Vein Thrombosis Respiratory History: No Pertinent History Endocrine Medical History: Hypothyroidism Musculoskeletal History: No Pertinent History GI Medical History: Other History: No Pertinent History Psycho-Social History: Anxiety, Depression Female Reproductive Disorders: Endometriosis, Fibroids Other Medical History: intestinal malrotation surg x2 ,brain surg chiarii - Past Surgical History Past Surgical History: Yes Neuro Surgical History: Other Cardiac: No Pertinent History Respiratory: No Pertinent History Gastrointestinal: Appendectomy, Cholecystectomy Genitourinary: No Pertinent History Musculoskeletal: No Pertinent History Female Surgical History: Hysterectomy, Section, Tubal Ligation Other Surgical History: brain surg chiari malformation, times 3 - Social History Smoking Status: Former smoker Exposure to second hand smoke: No Drug Use: none Patient Lives Alone: No - Nursing Vital Signs Nursing Vital Signs: Initial Vital Signs Temperature 97.5 F 02/21/22 13:17 Pulse Rate 71 02/21/22 13:17 Respiratory Rate 20 02/21/22 13:17 Blood Pressure 123/76 02/21/22 13:17 O2 Sat by Pulse Oximetry 98 02/21/22 13:17 Pain Scale Pain Intensity 4 - Physical Exam General Appearance: no apparent distress, alert, anxiety Eye Exam: PERRL/EOMI, eyes nml inspection Ears, Nose, Throat Exam: normal ENT inspection, moist mucous membranes Neck Exam: normal inspection, non-tender, supple, full range of motion Respiratory Exam: normal breath sounds, lungs clear, airway intact, No chest ten derness, No respiratory distress Cardiovascular Exam: regular rate/rhythm, normal heart sounds, normal peripheral pulses Gastrointestinal/Abdomen Exam: soft, normal bowel sounds, tenderness (Mild diffuse with palpation), No distention, No guarding (Mild diffuse), No rebound Pelvic Exam: not done Rectal Exam: not done Back Exam: normal inspection, normal range of motion, No CVA tenderness, No vertebral tenderness Extremity Exam: normal inspection, normal range of motion, pelvis stable Neurologic Exam: alert, oriented x 3, cooperative, slot floorperson II-XII nml as tested, normal mood/affect, nml cerebellar function, nml station & gait, sensation nml Skin Exam: normal color, warm, dry Lymphatic Exam: No adenopathy SpO2 Interpretation: normal O2 Delivery: Room Air - Course Nursing assessment & vital signs reviewed: Yes Ordered Tests: Active Orders 24 hr Category Date Time Status IV Insertion STAT Care 02/21/22 13:31 Active POCT Glucose Check STAT Care 02/21/22 13:41 Active ABDOMEN AND PELVIS W CONTRAST [CT] Stat Exams 02/21/22 13:32 Completed AMYLASE Stat Lab 02/21/22 13:47 Completed CBC W DIFF Stat Lab 02/21/22 13:47 Completed CMP Stat Lab 02/21/22 13:47 Completed LIPASE Stat Lab 02/21/22 13:47 Completed Lactic Acid Stat Lab 02/21/22 13:56 Completed POCT GLUCOSE Stat Lab 02/21/22 13:40 Completed T4 (Thyroxine) Stat Lab 02/21/22 13:47 Completed TSH [TSH, 3RD Generation] Stat Lab 02/21/22 13:47 Completed UA W/RFX UR CULTURE Stat Lab 02/21/22 13:40 Completed Medication Summary Discontinued Medications Generic Name Dose Route Start Last Admin Trade Name Sulaiman PRN Reason Stop Dose Admin Sodium Chloride 1,000 mls @ 999 mls/hr 02/21/22 13:31 02/21/22 14:46 Sodium Chloride 0.9% 1000 Ml IV 02/21/22 14:31 Infused .Q1H1M STA Infusion Sodium Chloride Confirm 02/21/22 13:42 Sodium Chloride 0.9% 1000 Ml Administered 02/21/22 13:43 Dose 1,000 mls @ ud .ROUTE .STK-MED ONE Ondansetron HCl 4 mg 02/21/22 13:31 02/21/22 13:45 Ondansetron Hcl 4 Mg/2 Ml Vial IV 02/21/22 13:32 4 mg STAT ONE Administration Ondansetron HCl Confirm 02/21/22 13:42 Ondansetron Hcl 4 Mg/2 Ml Vial Administered 02/21/22 13:43 Dose 4 mg .ROUTE .STK-[employer] ONE Prochlorperazine Edisylate 5 mg 02/21/22 13:52 02/21/22 13:54 Prochlorperazine Edisylate 10 Mg/2 Ml Vial IV 02/21/22 13:53 5 mg STAT ONE Administration Prochlorperazine Edisylate Confirm 02/21/22 13:53 Prochlorperazine Edisylate 10 Mg/2 Ml Vial Administered 02/21/22 13:54 Dose 10 mg .ROUTE .[employer] ONE Lab/Rad Data: Laboratory Result Diagrams 02/21/22 13:47 02/21/22 13:47 Laboratory Results 02/21/22 02/21/22 02/21/22 Range/Units 13:56 13:47 13:47 WBC (4.0-10.5) x10^3/uL RBC (4.1-5.4) x10^6/uL Hgb (12.0-16.0) g/dL Hct (35-47) % MCV (78-100) fL MCH (26-32) pg MCHC (32-36) g/dL RDW (11.5-14.0) % Plt Count (150-450) x10^3/uL MPV (7.5-11.0) fL Gran % (36.0-66.0) % Immature Gran % (Auto) (0.00-0.4) % Nucleat RBC Rel Count (0.00-0.1) % Eos # (Auto) (0-0.5) x10^3/uL Immature Gran # (Auto) (0.00-0.03) x10^3u/L Absolute Lymphs (auto) (1.0-4.6) x10^3/uL Absolute Monos (auto) (0.0-1.3) x10^3/uL Absolute Nucleated RBC (0.00-0.01) x10^3u/L Lymphocytes % (24.0-44.0) % Monocytes % (0.0-12.0) % Eosinophils % (0.00-5.0) % Basophils % (0.0-0.4) % Absolute Granulocytes (1.4-6.9) x10^3/uL Basophils # (0-0.4) x10^3/uL Sodium (137-145) mmol/L Potassium (3.5-5.1) mmol/L Chloride (98-107) mmol/L Carbon Dioxide (22-30) mmol/L Anion Gap (5-15) MEQ/L BUN (7-17) mg/dL Creatinine (0.52-1.04) mg/dL Estimated GFR ML/MIN Glucose (74-106) mg/dL POC Glucometer (74 to 106) mg/dL Lactic Acid 1.6 (0.4-2.0) Calcium (8.4-10.2) mg/dL Total Bilirubin (0.2-1.3) mg/dL AST (14-36) U/L ALT (0-35) U/L Alkaline Phosphatase (38-126) U/L Serum Total Protein (6.3-8.2) g/dL Albumin (3.5-5.0) g/dL Amylase (30-110) U/L Lipase (23-300) U/L Thyroxine (T4) 8.70 (5.53-10.96) ug/dL TSH 3rd Generation 1.900 (0.47-4.68) mIU/L Urine Color (Yellow) Urine Appearance (Clear) Urine pH (4.6-8.0) Ur Specific [place] (1.005-1.030) Urine Protein (Negative) Urine Ketones (Negative) Urine Blood (Negative) Urine Nitrite (Negative) Urine Bilirubin (Negative) Urine Urobilinogen (0.2) mg/dL Ur Leukocyte Esterase (Negative) U Hyaline Cast (Auto) (0-2) /LPF Urine Microscopic RBC (0-5) /HPF Urine Microscopic WBC (0-5) /HPF Ur Epithelial Cells (None Seen) /HPF Urine Bacteria (None Seen) /HPF Urine Culture Reflexed (NO) Urine Glucose (Negative) mg/dL Influenza Type A Ag (NEGATIVE) Influenza Type B Ag (NEGATIVE) RSV (PCR) (Negative) SARS-CoV-2 (PCR) (NEGATIVE) 01/06/23 01/06/23 01/06/23 Range/Units 13:47 13:47 13:47 WBC 5.4 (4.0-10.5) x10^3/uL RBC 4.58 (4.1-5.4) x10^6/uL Hgb 13.7 (12.0-16.0) g/dL Hct 42.4 (35-47) % MCV 92.6 (78-100) fL MCH 29.9 (26-32) pg MCHC 32.3 (32-36) g/dL RDW 12.2 (11.5-14.0) % Plt Count 305 (150-450) x10^3/uL MPV 11.1 H (7.5-11.0) fL Gran % 52.7 (36.0-66.0) % Immature Gran % (Auto) 0.0 (0.00-0.4) % Nucleat RBC Rel Count 0.0 (0.00-0.1) % Eos # (Auto) 0.02 (0-0.5) x10^3/uL Immature Gran # (Auto) 0.00 (0.00-0.03) x10^3u/L Absolute Lymphs (auto) 2.13 (1.0-4.6) x10^3/uL Absolute Monos (auto) 0.33 (0.0-1.3) x10^3/uL Absolute Nucleated RBC 0.00 (0.00-0.01) x10^3u/L Lymphocytes % 39.8 (24.0-44.0) % Monocytes % 6.2 (0.0-12.0) % Eosinophils % 0.4 (0.00-5.0) % Basophils % 0.9 (0.0-0.4) % Absolute Granulocytes 2.82 (1.4-6.9) x10^3/uL Basophils # 0.05 (0-0.4) x10^3/uL Sodium 139 (137-145) mmol/L Potassium 3.8 (3.5-5.1) mmol/L Chloride 106 (98-107) mmol/L Carbon Dioxide 28 (22-30) mmol/L Anion Gap 8.9 (5-15) MEQ/L BUN 9 (7-17) mg/dL Creatinine 0.68 (0.52-1.04) mg/dL Estimated GFR > 60.0 ML/MIN Glucose 98 (74-106) mg/dL POC Glucometer (74 to 106) mg/dL Lactic Acid (0.4-2.0) Calcium 9.3 (8.4-10.2) mg/dL Total Bilirubin 0.50 (0.2-1.3) mg/dL AST 26 (14-36) U/L ALT 22 (0-35) U/L Alkaline Phosphatase 64 (38-126) U/L Serum Total Protein 7.7 (6.3-8.2) g/dL Albumin 4.4 (3.5-5.0) g/dL Amylase 58 (30-110) U/L Lipase 84 (23-300) U/L Thyroxine (T4) (5.53-10.96) ug/dL TSH 3rd Generation (0.47-4.68) mIU/L Urine Color (Yellow) Urine Appearance (Clear) Urine pH (4.6-8.0) Ur Specific [place] (1.005-1.030) Urine Protein (Negative) Urine Ketones (Negative) Urine Blood (Negative) Urine Nitrite (Negative) Urine Bilirubin (Negative) Urine Urobilinogen (0.2) mg/dL Ur Leukocyte Esterase (Negative) U Hyaline Cast (Auto) (0-2) /LPF Urine Microscopic RBC (0-5) /HPF Urine Microscopic WBC (0-5) /HPF Ur Epithelial Cells (None Seen) /HPF Urine Bacteria (None Seen) /HPF Urine Culture Reflexed (NO) Urine Glucose (Negative) mg/dL Influenza Type A Ag NEGATIVE (NEGATIVE) Influenza Type B Ag NEGATIVE (NEGATIVE) RSV (PCR) NEGATIVE (Negative) SARS-CoV-2 (PCR) NEGATIVE (NEGATIVE) 02/21/22 02/21/22 Range/Units 13:40 13:40 WBC (4.0-10.5) x10^3/uL RBC (4.1-5.4) x10^6/uL Hgb (12.0-16.0) g/dL Hct (35-47) % MCV (78-100) fL MCH (26-32) pg MCHC (32-36) g/dL RDW (11.5-14.0) % Plt Count (150-450) x10^3/uL MPV (7.5-11.0) fL Gran % (36.0-66.0) % Immature Gran % (Auto) (0.00-0.4) % Nucleat RBC Rel Count (0.00-0.1) % Eos # (Auto) (0-0.5) x10^3/uL Immature Gran # (Auto) (0.00-0.03) x10^3u/L Absolute Lymphs (auto) (1.0-4.6) x10^3/uL Absolute Monos (auto) (0.0-1.3) x10^3/uL Absolute Nucleated RBC (0.00-0.01) x10^3u/L Lymphocytes % (24.0-44.0) % Monocytes % (0.0-12.0) % Eosinophils % (0.00-5.0) % Basophils % (0.0-0.4) % Absolute Granulocytes (1.4-6.9) x10^3/uL Basophils # (0-0.4) x10^3/uL Sodium (137-145) mmol/L Potassium (3.5-5.1) mmol/L Chloride (98-107) mmol/L Carbon Dioxide (22-30) mmol/L Anion Gap (5-15) MEQ/L BUN (7-17) mg/dL Creatinine (0.52-1.04) mg/dL Estimated GFR ML/MIN Glucose (74-106) mg/dL POC Glucometer 89 (74 to 106) mg/dL Lactic Acid (0.4-2.0) Calcium (8.4-10.2) mg/dL Total Bilirubin (0.2-1.3) mg/dL AST (14-36) U/L ALT (0-35) U/L Alkaline Phosphatase (38-126) U/L Serum Total Protein (6.3-8.2) g/dL Albumin (3.5-5.0) g/dL Amylase (30-110) U/L Lipase (23-300) U/L Thyroxine (T4) (5.53-10.96) ug/dL TSH 3rd Generation (0.47-4.68) mIU/L Urine Color Yellow (Yellow) Urine Appearance Clear (Clear) Urine pH 6.5 (4.6-8.0) Ur Specific [place] 1.010 (1.005-1.030) Urine Protein Negative (Negative) Urine Ketones Negative (Negative) Urine Blood Negative (Negative) Urine Nitrite Negative (Negative) Urine Bilirubin Negative (Negative) Urine Urobilinogen 0.2 (0.2) mg/dL Ur Leukocyte Esterase Negative (Negative) U Hyaline Cast (Auto) 0-2 (0-2) /LPF Urine Microscopic RBC 0-2 (0-5) /HPF Urine Microscopic WBC 0-2 (0-5) /HPF Ur Epithelial Cells None Seen (None Seen) /HPF Urine Bacteria None Seen (None Seen) /HPF Urine Culture Reflexed NO (NO) Urine Glucose Negative (Negative) mg/dL Influenza Type A Ag (NEGATIVE) Influenza Type B Ag (NEGATIVE) RSV (PCR) (Negative) SARS-CoV-2 (PCR) (NEGATIVE) - Progress Progress: improved, re-examined Progress Note: 02/21/22 17:13 CAT scan of the abdomen pelvis with IV and oral contrast shows finding consistent with malrotation of the small bowel. No evidence of obstruction or other complications. Counseled pt/family regarding: lab results, diagnosis, need for follow-up, rad results - Departure Departure Disposition: Home Clinical Impression: Abdominal pain Condition: Stable Critical Care Time: No Referrals: KALIE SY [Primary Care Provider] - Follow up/PCP as directed Additional Instructions: Drink plenty of full liquids and advance your diet as tolerated. Follow-up with your powder nipper, primary care physician and surgeon for further recommendations and management. Take your medications as prescribed
[2022-02-21] MEDS ORDERED: Zofran 4 MG/2 ML VIAL IV ONE (13:31)
[2022-02-21] MEDS ORDERED: Sodium Chloride 0.9% 1000 ML 1,000 ML IV STA (13:31)
[2022-02-21] MEDS ORDERED: Zofran 4 MG/2 ML VIAL ONE (13:42)
[2022-02-21] MEDS ORDERED: Sodium Chloride 0.9% 1000 ML 1,000 ML ONE (13:42)
[2022-02-21] MEDS ORDERED: Compazine 10 MG/2 ML IV ONE (13:52)
[2022-02-21] MEDS ORDERED: Compazine 10 MG/2 ML ONE (13:53)
[2022-02-21 14:01] LABS: Absolute Neutrophil Ct (ANC) 2.82 x10^3/uL (1.4-6.9); Basophil (Absolute #) 0.05 x10^3/uL (0-0.4); Eosinophil % 0.4 % (0.00-5.0); Eosinophil (Absolute #) 0.02 x10^3/uL (0-0.5); Hematocrit 42.4 % (35-47); Hemoglobin 13.7 g/dL (12.0-16.0); Lymphocyte (Absolute #) 2.13 x10^3/uL (1.0-4.6); Lymphocytes % 39.8 % (24.0-44.0); Mean Cell Volume 92.6 fL (78-100); Mean Corpuscular Hemoglobin 29.9 pg (26-32); Mean Corpuscular Hgb Concent. 32.3 g/dL (32-36); Mean Platelet Volume 11.1 fL (7.5-11.0); Monocyte (Absolute #) 0.33 x10^3/uL (0.0-1.3); Monocytes % 6.2 % (0.0-12.0); Neutrophil % 52.7 % (36.0-66.0); Platelet Count 305 x10^3/uL (150-450); Red Blood Count 4.58 x10^6/uL (4.1-5.4); Red Cell Distribution Width 12.2 % (11.5-14.0); White Blood Count 5.4 x10^3/uL (4.0-10.5)
[2022-02-21 14:05] LABS: Appearance Clear (Clear); Bacteria None Seen /HPF (None Seen); Bilirubin Negative (Negative); Blood Negative (Negative); Epithelial Cells None Seen /HPF (None Seen); Glucose Negative (Negative); Hyaline Casts 0-2 /LPF (0-2); Ketones Negative (Negative); Leukocyte Esterase Negative (Negative); Nitrite Negative (Negative); Ph 6.5 (4.6-8.0); Protein,Urine Dip Negative (Negative); RBC 0-2 /HPF (0-5); Urobilinogen 0.2 mg/dL (0.2); WBC 0-2 /HPF (0-5)
[2022-02-21 14:09] LABS: ADD URINE CULTURE? NO (NO)
[2022-02-21 14:24] LABS: ALBUMIN 4.4 g/dL (3.5-5.0); ALKALINE PHOSPHATASE 64 U/L (38-126); AMYLASE 58 U/L (30-110); ANION GAP 8.9 MEQ/L (5-15); BLOOD UREA NITROGEN 9 mg/dL (7-17); CHLORIDE 106 mmol/L (98-107); Calcium 9.3 mg/dL (8.4-10.2); Carbon Dioxide 28 mmol/L (22-30); Creatinine 1 0.68 mg/dL (0.52-1.04); EST GLOMERULAR FILTRATION RATE > 60.0 ML/MIN; Glucose 98 mg/dL (74-106); LIPASE 84 U/L (23-300); Potassium 3.8 mmol/L (3.5-5.1); SGOT/AST 26 U/L (14-36); SGPT/ALT 22 U/L (0-35); SODIUM 139 mmol/L (137-145); Total Protein 7.7 g/dL (6.3-8.2)
[2022-02-21 14:28] LABS: INFLUENZA A NEGATIVE (NEGATIVE); INFLUENZA B NEGATIVE (NEGATIVE); RESPIRATORY SYNCTIAL VIRUS NEGATIVE (Negative); SARS-CoV-2 Xpert Express NEGATIVE (NEGATIVE)
--- NOTE | 2022-02-21 16:53 | XRAY ---
Indication: Abdomen pain, nausea, vomiting, weakness, and dizziness. History of malrotation. Multiple contiguous axial images obtained through the abdomen and pelvis using 80 cc Isovue 370 contrast. Enteric contrast also used. Comparison: October 27, 2020 Lung bases demonstrate stable tiny right lower lobe calcific granuloma. No infiltrate or effusion. Heart not enlarged. Contrasted stomach and bowel loops nonobstructed. Once again small bowel loops are predominantly in the right hemiabdomen. There remains mild diffuse scattered colonic fecal debris throughout. Appendectomy, cholecystectomy, and hysterectomy reported. No free fluid/air. 5 mm left upper and mid renal cortical cysts not seen on previous noncontrast exam. Remaining liver, pancreas, spleen, adrenal glands, kidneys, ureters, bladder, and aorta are unremarkable. No pathologic retroperitoneal lymphadenopathy. Osseous structures intact. Impression: 1. Again small bowel loops predominantly in right abdomen consistent with clinically reported malrotation. No obstruction/complications. 2. Again mild diffuse fecal stasis. 3. Incidental tiny left renal cysts and old granulomatous disease. 4. Remaining CT abdomen/pelvis with contrast exam is negative.
[2022-02-21 17:11] VITALS: O2SAT 98
[2022-02-21 17:37] VITALS: BP 113/85; PULSE 84
== END 2022-02-21 17:45 | disposition home or self-care (01) ==
LOC: ED 13:07
DX: R10.9 Unspecified abdominal pain (principal); R42 Dizziness and giddiness; R11.10 Vomiting, unspecified; Z79.899 Other long term (current) drug therapy; Z28.310 Unvaccinated for COVID-19
CPT/HCPCS: 0241U; 36000; 36415; 74177; 80053; 81001; 82150; 82947; 83605; 83690; 84436; 84443; 85025; 96374; 96375; 99284; J2405

== ENCOUNTER 2023-09-01 12:42 | Emergency (ER) | payer BC ==
[2023-09-01 13:29] VITALS: RESP 16; TEMP 98.3
[2023-09-01 14:22] LABS: HCG URINE TEST NEGATIVE (NEGATIVE)
[2023-09-01 14:31] LABS: Appearance Clear (Clear); Bilirubin Negative (Negative); Blood Negative (Negative); Glucose, Urine Negative (Negative); Ketones Negative (Negative); Leukocyte Esterase Trace (Negative); Nitrite Negative (Negative); Ph 7.5 (4.6-8.0); Protein,Urine Dip Negative (Negative); Urobilinogen 0.2 mg/dL (0.2)
[2023-09-01 14:32] LABS: ADD URINE CULTURE? NO (NO); Bacteria None Seen /HPF (None Seen); Epithelial Cells None Seen /HPF (None Seen); RBC 0-2 /HPF (0-5); WBC 0-2 /HPF (0-5)
[2023-09-01] MEDS ORDERED: BENADRYL 50 MG/ML ONE (14:39)
[2023-09-01] MEDS ORDERED: Sodium Chloride 0.9% 1000 ML 1,000 ML ONE (14:40)
[2023-09-01] MEDS ORDERED: Compazine 10 MG/2 ML ONE (14:40)
--- NOTE | 2023-09-01 14:47 | ERPHSYRPT ---
- History of Present Illness Time Seen by Provider: 09/01/23 13:45 Source: patient Exam Limitations: no limitations Patient Subjective Stated Complaint: pt states fever that started last night Triage Nursing Assessment: pt ambulated into the er; pt is axo x4; c/o fever; pt is afebrile on arrival; c/o headache; pt states 5/10 to rt upper arm; pt states burning to rt upper arm; no redness or warmth present to rt upper arm; picc line present to rt upper arm; skin PDW; no respiratory distress present; tachycardic Physician History: Patient is a 42-year-old female presents to our ED for evaluation of a fever. Patient has a right upper extremity PICC line for IV fluid infusion. Patient states that she has a malrotation and she has not been able to tolerate oral intake. Patient has been experiencing dehydration which is why the PICC line was placed. PICC line has been in place for approximately 1 week. Patient complains of pain at the site of the PICC line as well as a headache. Headache is constant. No meningeal signs. No neck pain. No nuchal rigidity. No photophobia. Symptoms are mild to moderate in intensity. No specific worsening or improving factors. Patient otherwise feels well. She voices no other complaints or concerns at this time. Portions of this note were created with voice recognition technology. 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 Therapy MICROBIOLOGY INSTRUCTOR: none Associated Symptoms: headache Allergies/Adverse Reactions: azithromycin Allergy (Verified 09/01/23 13:13) Muscle Aches hydrocodone bitartrate [From Vicodin] Allergy (Verified 09/01/23 13:13) naproxen [From Naprosyn] Allergy (Verified 09/01/23 13:13) tramadol Adverse Reaction (Verified 09/01/23 13:13) Nausea and Vomiting Home Medications: Hydrocodone/Acetaminophen [Hydrocodone-Acetamin 5-325 mg] 1 tab PO Q6HPRN PRN MDD 4 07/29/23 [History] Pantoprazole 20 mg [Protonix 20MG Tablet] 20 mg PO BID 07/29/23 [History] Promethazine HCl 25 mg [Phenergan 25 mg] 25 mg PO QID 07/29/23 [History] Ubrogepant [Ubrelvy] 50 mg PO DAILY PRN 09/01/23 [History] Hx Tetanus, Diphtheria Vaccination/Date Given: Yes Hx Influenza Vaccination/Date Given: No Hx Pneumococcal Vaccination/Date Given: No Immunizations Up to Date: No Travel Risk - International Travel Have you traveled outside of the country in past 3 weeks: No - Emerging Infectious Disease Are you exhibiting symptoms associated with any current EIDs: Yes Symptoms: Fever - Review of Systems Constitutional: No Symptoms, No Fever, No Chills Eyes: No Symptoms Ears, Nose, & Throat: No Symptoms Respiratory: No Symptoms, No Cough, No Dyspnea Cardiac: No Symptoms, No Chest Pain, No Edema, No Syncope Abdominal/Gastrointestinal: No Symptoms, No Abdominal Pain, No Nausea, No Vomiting, No Diarrhea Genitourinary Symptoms: No Symptoms, No Dysuria Musculoskeletal: No Symptoms, No Back Pain, No Neck Pain Skin: No Symptoms, No Rash Neurological: No Symptoms, No Dizziness, No Focal Weakness, No Sensory Changes Psychological: No Symptoms Endocrine: No Symptoms Hematologic/Lymphatic: No Symptoms Immunological/Allergic: No Symptoms All Other Systems: Reviewed and Negative - Past Medical History Pertinent Past Medical History: Yes Neurological History: Migraines ENT History: No Pertinent History Cardiac History: Deep Vein Thrombosis Respiratory History: No Pertinent History Endocrine Medical History: Hypothyroidism Musculoskeletal History: No Pertinent History GI Medical History: Other History: No Pertinent History Psycho-Social History: Anxiety, Depression Female Reproductive Disorders: Endometriosis, Fibroids Other Medical History: intestinal malrotation surg x2 ,brain surg chiarii - Past Surgical History Past Surgical History: Yes Neuro Surgical History: Other Cardiac: No Pertinent History Respiratory: No Pertinent History Gastrointestinal: Appendectomy, Cholecystectomy Genitourinary: No Pertinent History Musculoskeletal: No Pertinent History Female Surgical History: Hysterectomy, Section, Tubal Ligation Other Surgical History: brain surg chiari malformation, times 3 - Female History Hx Last Menstrual Period: 09/29/13 Hx Now: No - Social History Smoking Status: Former smoker Exposure to second hand smoke: No Drug Use: none Patient Lives Alone: No - Social Determinants of Health Will the patient participate in the screening: Yes Do you worry about a steady place to live?: No Do you have any problems with any of the following?: No known problems In the past 12 months,have you had to go without utilities?: No Transportation Issues: No Has anyone in your support network made you feel unsafe?: No Have you or anyone in your house had to go without enough: No - Nursing Vital Signs Nursing Vital Signs: Initial Vital Signs Pulse Rate 104 H 09/01/23 13:17 Blood Pressure 107/76 09/01/23 13:17 O2 Sat by Pulse Oximetry 96 09/01/23 13:17 Pain Scale Pain Intensity 5 - Physical Exam General Appearance: no apparent distress, alert Eye Exam: PERRL/EOMI ENT Exam: normal ENT inspection, No pharyngeal erythema, No tonsillar exudate Neck Exam: supple, full range of motion, No meningismus Respiratory Exam: normal breath sounds, lungs clear, no respiratory distress Cardiovascular/Chest Exam: normal heart sounds, regular rate/rhythm, No murmur, No edema Gastrointestinal/Abdominal Exam: soft, non tender, no distention Extremity Exam: non-tender, normal range of motion, normal inspection, normal capillary refill Neurologic Exam: alert, oriented x 3, cooperative, duty officer II-XII nml as tested, normal mood/affect, sensation nml, No motor deficits Skin Exam: normal color, warm, dry, No rash Lymphatic: No adenopathy SpO2 Interpretation: normal SpO2: 96 O2 Delivery: Room Air - Course Nursing assessment & vital signs reviewed: Yes Ordered Tests: Active Orders 24 hr Category Date Time Status Cisco Consultant STAT Care 09/01/23 14:04 Active IV Insertion STAT Care 09/01/23 14:28 Active Pulse Oximetry (ED) STAT Care 09/01/23 14:03 Active CHEST 1 VIEW (PORTABLE) Stat Exams 09/01/23 14:04 Completed BLOOD CULTURE Stat Lab 09/01/23 14:58 Received CBC W DIFF Stat Lab 09/01/23 14:35 Completed CMP Stat Lab 09/01/23 14:35 Completed HCG QUALITATIVE, URINE Stat Lab 09/01/23 Completed MONO SCREEN Stat Lab 09/01/23 Completed UA W/RFX UR CULTURE Stat Lab 09/01/23 14:14 Completed Medication Summary Discontinued Medications Generic Name Dose Route Start Last Admin Trade Name Freq PRN Reason Stop Dose Admin Diphenhydramine HCl 50 mg 09/01/23 14:29 09/01/23 14:52 Diphenhydramine Hcl 50 Mg/Ml Vial IV 09/01/23 14:30 50 mg STAT ONE Administration Diphenhydramine HCl Confirm 09/01/23 14:39 Diphenhydramine Hcl 50 Mg/Ml Vial Administered 09/01/23 14:40 Dose 50 mg .ROUTE .STK-MED ONE Sodium Chloride 1,000 mls @ 999 mls/hr 09/01/23 14:28 09/01/23 16:05 Sodium Chloride 0.9% 1000 Ml IV 09/01/23 15:28 Infused .Q1H1M STA Infusion Sodium Chloride Confirm 09/01/23 14:40 Sodium Chloride 0.9% 1000 Ml Administered 09/01/23 14:41 Dose 1,000 mls @ ud .ROUTE .STK-MED ONE Prochlorperazine Edisylate 10 mg 09/01/23 14:29 09/01/23 14:52 Prochlorperazine Edisylate 10 Mg/2 Ml Vial IV 09/01/23 14:30 10 mg STAT ONE Administration Prochlorperazine Edisylate Confirm 09/01/23 14:40 Prochlorperazine Edisylate 10 Mg/2 Ml Vial Administered 09/01/23 14:41 Dose 10 mg .ROUTE .ST-MED ONE Lab/Rad Data: Laboratory Result Diagrams 09/01/23 14:35 09/01/23 14:35 Laboratory Results 09/01/23 09/01/23 09/01/23 Range/Units Unknown 15:00 15:00 WBC (3.98-10.04) x10^3/uL RBC (3.93-5.22) x10^6/uL Hgb (11.2-15.7) g/dL Hct (34.1-44.9) % MCV (79.4-94.8) fL MCH (25.6-32.2) pg MCHC (32.2-35.5) g/dL RDW (11.7-14.4) % Plt Count (182-369) x10^3/uL MPV (9.4-12.3) fL Gran % (34.0-71.1) % Immature Gran % (Auto) (0.001-0.429) % Nucleat RBC Rel Count (0.00-0.2) % Eos # (Auto) (0.04-0.36) x10^3/uL Immature Gran # (Auto) (0.001-0.031) x10^3u/L Absolute Lymphs (auto) (1.18-3.74) x10^3/uL Absolute Monos (auto) (0.24-0.86) x10^3/uL Absolute Nucleated RBC (0.00-0.012) x10^3u/L Lymphocytes % (19.3-51.7) % Monocytes % (4.7-12.5) % Eosinophils % (0.7-5.8) % Basophils % (0.1-1.2) % Absolute Granulocytes (1.56-6.13) x10^3/uL Basophils # (0.01-0.08) x10^3/uL Sodium (135-145) mmol/L Potassium (3.5-5.1) mmol/L Chloride (98-107) mmol/L Carbon Dioxide (22-30) mmol/L Anion Gap (5-15) MEQ/L BUN (7-17) mg/dL Creatinine (0.52-1.04) mg/dL Estimated GFR ML/MIN Glucose (74-106) mg/dL Calcium (8.4-10.2) mg/dL Total Bilirubin (0.2-1.3) mg/dL AST (14-36) U/L ALT (0-35) U/L Alkaline Phosphatase (38-126) U/L Serum Total Protein (6.3-8.2) g/dL Albumin (3.5-5.0) g/dL Urine Color (Yellow) Urine Appearance (Clear) Urine pH (4.6-8.0) Ur Specific Vaughan (1.005-1.030) Urine Protein (Negative) Urine Glucose (UA) (Negative) mg/dL Urine Ketones (Negative) Urine Blood (Negative) Urine Nitrite (Negative) Urine Bilirubin (Negative) Urine Urobilinogen (0.2) mg/dL Ur Leukocyte Esterase (Negative) Urine Microscopic RBC (0-5) /HPF Urine Microscopic WBC (0-5) /HPF Ur Epithelial Cells (None Seen) /HPF Urine Bacteria (None Seen) /HPF Urine Culture Reflexed (NO) Urine HCG, Qual NEGATIVE (NEGATIVE) Monoscreen NEGATIVE (NEGATIVE) Influenza Type A Ag NEGATIVE (NEGATIVE) Influenza Type B Ag NEGATIVE (NEGATIVE) RSV (PCR) NEGATIVE (NEGATIVE) SARS-CoV-2 (PCR) POSITIVE A (NEGATIVE) Group A Strep Antibody NOT DETECTED (NEGATIVE) 09/01/23 09/01/23 09/01/23 Range/Units 14:35 14:35 14:14 WBC 4.7 (3.98-10.04) x10^3/uL RBC 4.67 (3.93-5.22) x10^6/uL Hgb 14.1 (11.2-15.7) g/dL Hct 41.6 (34.1-44.9) % MCV 89.1 (79.4-94.8) fL MCH 30.2 (25.6-32.2) pg MCHC 33.9 (32.2-35.5) g/dL RDW 11.7 (11.7-14.4) % Plt Count 229 (182-369) x10^3/uL MPV 11.1 (9.4-12.3) fL Gran % 78.6 H (34.0-71.1) % Immature Gran % (Auto) 0.2 (0.001-0.429) % Nucleat RBC Rel Count 0.0 (0.00-0.2) % Eos # (Auto) 0.02 L (0.04-0.36) x10^3/uL Immature Gran # (Auto) 0.01 (0.001-0.031) x10^3u/L Absolute Lymphs (auto) 0.60 L (1.18-3.74) x10^3/uL Absolute Monos (auto) 0.33 (0.24-0.86) x10^3/uL Absolute Nucleated RBC 0.00 (0.00-0.012) x10^3u/L Lymphocytes % 12.8 L (19.3-51.7) % Monocytes % 7.1 (4.7-12.5) % Eosinophils % 0.4 L (0.7-5.8) % Basophils % 0.9 (0.1-1.2) % Absolute Granulocytes 3.68 (1.56-6.13) x10^3/uL Basophils # 0.04 (0.01-0.08) x10^3/uL Sodium 139 (135-145) mmol/L Potassium 4.0 (3.5-5.1) mmol/L Chloride 103 (98-107) mmol/L Carbon Dioxide 26 (22-30) mmol/L Anion Gap 13.7 (5-15) MEQ/L BUN 6 L (7-17) mg/dL Creatinine 0.55 (0.52-1.04) mg/dL Estimated GFR 115.8 ML/MIN Glucose 97 (74-106) mg/dL Calcium 9.8 (8.4-10.2) mg/dL Total Bilirubin 0.50 (0.2-1.3) mg/dL AST 51 H (14-36) U/L ALT 41 H (0-35) U/L Alkaline Phosphatase 108 (38-126) U/L Serum Total Protein 7.9 (6.3-8.2) g/dL Albumin 4.7 (3.5-5.0) g/dL Urine Color Yellow (Yellow) Urine Appearance Clear (Clear) Urine pH 7.5 (4.6-8.0) Ur Specific Vaughan 1.010 (1.005-1.030) Urine Protein Negative (Negative) Urine Glucose (UA) Negative (Negative) mg/dL Urine Ketones Negative (Negative) Urine Blood Negative (Negative) Urine Nitrite Negative (Negative) Urine Bilirubin Negative (Negative) Urine Urobilinogen 0.2 (0.2) mg/dL Ur Leukocyte Esterase Trace A (Negative) Urine Microscopic RBC 0-2 (0-5) /HPF Urine Microscopic WBC 0-2 (0-5) /HPF Ur Epithelial Cells None Seen (None Seen) /HPF Urine Bacteria None Seen (None Seen) /HPF Urine Culture Reflexed NO (NO) Urine HCG, Qual (NEGATIVE) Monoscreen (NEGATIVE) Influenza Type A Ag (NEGATIVE) Influenza Type B Ag (NEGATIVE) RSV (PCR) (NEGATIVE) SARS-CoV-2 (PCR) (NEGATIVE) Group A Strep Antibody (NEGATIVE) - Progress Progress: improved Progress Note: 42-year-old female presents emergency department for evaluation of a low-grade fever. Upon arrival to our ED patient was afebrile. Physical exam essentially nonremarkable. Although patient complained of a headache. Neurologic exam nonremarkable. Patient headache treated. Headache resolved. Patient feels well. Workup reveals COVID-positive test. We were concerned for possible line sepsis however there is no evidence that there is line sepsis or an infected PICC line. Chest x-ray nonremarkable. No pneumonia. Patient remains afebrile and is in good spirits. Will discharge patient home at this time. COVID precautions discussed. Patient understands a COVID is very communicable. Patient agrees to follow-up with her primary care doctor within 48 hours for reevaluation. Portions of this note were created with voice recognition technology. There may be grammatical, spelling, punctuation or sound alike errors Complexity problem addressed is moderate acute complicated. No critical care time. Complexity of data reviewed and analyzed is moderate. Test ordered chest reviewed results analyzed and correlated clinically with history and physical exam. Risk of complication and or risk of morbidity/mortality patient management is low. Vital stable. Time spent to discharge patient is approximately 15 minutes. Plan of care established for shared decision making. No social determinants of health present impede follow-up. Portions of this note were created with voice recognition technology. There may be grammatical, spelling, punctuation or sound alike errors 09/01/23 17:14 09/01/23 17:16 Counseled pt/family regarding: lab results, diagnosis, need for follow-up, rad results - Departure Departure Disposition: Home Clinical Impression: Fever, COVID-19 Condition: Stable Critical Care Time: No Referrals: KALIE SY [Primary Care Provider] - Follow up/PCP as directed Additional Instructions: Discharge/Care Plan MERLYN LUX was seen on 09/01/23 in the Emergency Room. The patient was counseled regarding Diagnosis,Lab results, Imaging studies, need for follow up and when to return to the Emergency Room. Prescriptions given: Discharge Note I have spoken with the patient and/or caregivers. I have explained the patient's condition, diagnosis and treatment plan based on the information available to me at this time. I have answered the patient's and/or caregiver's questions and addressed any concerns. The patient and/or caregivers have as good understanding of the patient's diagnosis, condition and treatment plan as can be expected at this point. The vital signs have been stable. The patient's condition is stable and appropriate for discharge from the emergency department. The patient will pursue further outpatient evaluation with the primary care physician or other designated or consulting physician as outlined in the discharge instructions. The patient and/or caregivers are agreeable to this plan of care and follow-up instructions have been explained in detail. The patient and/or caregivers have received these instruction. The patient/and or caregivers are aware that any significant change in condition or worsening of symptoms should prompt an immediate return to this or the closest emergency department or call 911.
[2023-09-01] MEDS: Sodium Chloride 0.9% 1000 ML 1,000 ML IV STA (14:52)
[2023-09-01] MEDS: BENADRYL 50 MG/ML IV ONE (14:52)
[2023-09-01] MEDS: Compazine 10 MG/2 ML IV ONE (14:52)
[2023-09-01 15:10] LABS: Absolute Neutrophil Ct (ANC) 3.68 x10^3/uL (1.56-6.13); BASOPHIL % 0.9 % (0.1-1.2); Basophil (Absolute #) 0.04 x10^3/uL (0.01-0.08); Eosinophil % 0.4 % (0.7-5.8); Eosinophil (Absolute #) 0.02 x10^3/uL (0.04-0.36); Hematocrit 41.6 % (34.1-44.9); Hemoglobin 14.1 g/dL (11.2-15.7); IMMATURE GRAN # 0.01 x10^3u/L (0.001-0.031); IMMATURE GRAN % 0.2 % (0.001-0.429); Lymphocytes % 12.8 % (19.3-51.7); Mean Cell Volume 89.1 fL (79.4-94.8); Mean Corpuscular Hemoglobin 30.2 pg (25.6-32.2); Mean Corpuscular Hgb Concent. 33.9 g/dL (32.2-35.5); Mean Platelet Volume 11.1 fL (9.4-12.3); Monocyte (Absolute #) 0.33 x10^3/uL (0.24-0.86); Monocytes % 7.1 % (4.7-12.5); Neutrophil % 78.6 % (34.0-71.1); Platelet Count 229 x10^3/uL (182-369); Red Blood Count 4.67 x10^6/uL (3.93-5.22); Red Cell Distribution Width 11.7 % (11.7-14.4); White Blood Count 4.7 x10^3/uL (3.98-10.04)
--- NOTE | 2023-09-01 15:18 | XRAY ---
Indication: Fever. Comparison: January 22, 2019 Portable chest demonstrates new minimal left lung base discoid atelectasis/scarring and new right arm PICC line with tip projecting over SVC. Remaining heart and lungs normal with a few incidental tiny calcified granulomas. Bony thorax intact.
[2023-09-01 15:24] LABS: ALBUMIN 4.7 g/dL (3.5-5.0); ANION GAP 13.7 MEQ/L (5-15); BILIRUBIN,TOTAL 0.5 mg/dL (0.2-1.3); Calcium 9.8 mg/dL (8.4-10.2); Creatinine 1 0.55 mg/dL (0.52-1.04); EST GLOMERULAR FILTRATION RATE 115.8 ML/MIN; Total Protein 7.9 g/dL (6.3-8.2)
[2023-09-01 15:58] LABS: INFLUENZA A NEGATIVE (NEGATIVE); INFLUENZA B NEGATIVE (NEGATIVE); RESPIRATORY SYNCTIAL VIRUS NEGATIVE (NEGATIVE)
[2023-09-01 16:00] LABS: SARS-CoV-2 Xpert Express POSITIVE (NEGATIVE)
[2023-09-01 17:15] VITALS: O2SAT 96
[2023-09-01 17:19] VITALS: BP 113/73; PULSE 100
== END 2023-09-01 17:24 | disposition home or self-care (01) ==
LOC: ED 12:42
DX: U07.1 COVID-19 (principal); R50.9 Fever, unspecified; R51.9 Headache, unspecified; Z79.891 Long term (current) use of opiate analgesic; Z79.899 Other long term (current) drug therapy
CPT/HCPCS: 0241U; 36000; 36415; 71045; 80053; 81001; 81025; 85025; 86308; 87040; 87651; 93041; 94760; 96360; 96374; 96375; 99284; J1200

== ENCOUNTER 2024-03-01 22:09 | Emergency (ER) | payer BC ==
[2024-03-01 22:21] VITALS: RESP 18; TEMP 97.2
[2024-03-01 23:47] VITALS: BP 96/57; PULSE 87
[2024-03-01 23:57] VITALS: O2SAT 100
--- NOTE | 2024-03-01 23:57 | ERPHSYRPT ---
- History of Present Illness Time Seen by Provider: 03/01/24 22:15 Source: patient Exam Limitations: no limitations Patient Subjective Stated Complaint: c/o picc line issue Triage Nursing Assessment: Patient brought to ED by with c/o picc line issues. Patient states that this evening her picc line wouldn't flush correctly. Patient's vitals wnl, skin w/n/d, picc line was placed in August, gait steady, patient doesn't appear to be in any distress at this time. Physician History: 43-year-old female presents to emergency department for evaluation of PICC line. Patient received TPN through her PICC line. She states that her PICC line is not flushing. Patient was sent to our ED by her home health nurse. She has no other problems no other complaints. Patient denies pain. No fever. No discomfort of any sort. Patient otherwise feels well and voices no other complaints or concerns at this time. Portions of this note were created with voice recognition technology. There may be grammatical, spelling, punctuation or sound alike errors Timing/Duration: today Severity: mild Modifying Factors: Improves With: nothing Associated Symptoms: denies symptoms Allergies/Adverse Reactions: azithromycin Allergy (Verified 03/01/24 22:21) Muscle Aches naproxen [From Naprosyn] Allergy (Verified 03/01/24 22:21) tramadol Adverse Reaction (Verified 03/01/24 22:21) Nausea and Vomiting Home Medications: Hydrocodone/Acetaminophen [Hydrocodone-Acetamin 5-325 mg] 1 tab PO Q6HPRN PRN MDD 4 07/29/23 [History] Pantoprazole 20 mg [Protonix 20MG Tablet] 20 mg PO BID 07/29/23 [History] Promethazine HCl 25 mg [Phenergan 25 mg] 25 mg PO QID 07/29/23 [History] Ubrogepant [Ubrelvy] 50 mg PO DAILY PRN 09/01/23 [History] Granisetron [Sustol] 1 mg PO 11/04/23 [History] Hyoscyamine Sulfate 0.125 mg [Anaspaz 0.125 mg] 0.125 mg PO QID 01/18/24 [History] Hx Tetanus, Diphtheria Vaccination/Date Given: Yes Hx Influenza Vaccination/Date Given: No Hx Pneumococcal Vaccination/Date Given: No Travel Risk - International Travel Have you traveled outside of the country in past 3 weeks: No - Emerging Infectious Disease Are you exhibiting symptoms associated with any current EIDs: Yes Symptoms: Abdominal Pain - Review of Systems Constitutional: No Symptoms, No Fever, No Chills Eyes: No Symptoms Ears, Nose, & Throat: No Symptoms Respiratory: No Symptoms, No Cough, No Dyspnea Cardiac: No Symptoms, No Chest Pain, No Edema, No Syncope Abdominal/Gastrointestinal: No Symptoms, No Abdominal Pain, No Nausea, No Vomiting, No Diarrhea Genitourinary Symptoms: No Symptoms, No Dysuria Musculoskeletal: No Symptoms, No Back Pain, No Neck Pain Skin: No Symptoms, No Rash Neurological: No Symptoms, No Dizziness, No Focal Weakness, No Sensory Changes Psychological: No Symptoms Endocrine: No Symptoms Hematologic/Lymphatic: No Symptoms Immunological/Allergic: No Symptoms All Other Systems: Reviewed and Negative - Past Medical History Pertinent Past Medical History: Yes Neurological History: Migraines ENT History: No Pertinent History Cardiac History: Deep Vein Thrombosis Respiratory History: No Pertinent History Endocrine Medical History: Hypothyroidism Musculoskeletal History: No Pertinent History GI Medical History: Other History: No Pertinent History Psycho-Social History: Anxiety, Depression Female Reproductive Disorders: Endometriosis, Fibroids Other Medical History: intestinal malrotation surg x2 ,brain surg chiarii - Past Surgical History Past Surgical History: Yes Neuro Surgical History: Other Cardiac: No Pertinent History Respiratory: No Pertinent History Gastrointestinal: Appendectomy, Cholecystectomy Genitourinary: No Pertinent History Musculoskeletal: No Pertinent History Female Surgical History: Hysterectomy, Section, Tubal Ligation Other Surgical History: brain surg chiari malformation, times 3, picc line in for hydration (taking TPN) - Female History Hx Last Menstrual Period: total hysterectomy in 2017 Hx Now: No - Social History Smoking Status: Never smoker Exposure to second hand smoke: No Drug Use: none Patient Lives Alone: No - Social Determinants of Health Will the patient participate in the screening: Declined to provide - Nursing Vital Signs Nursing Vital Signs: Initial Vital Signs Temperature 97.2 F 03/01/24 22:14 Pulse Rate 94 H 03/01/24 22:14 Respiratory Rate 18 03/01/24 22:14 Blood Pressure 116/70 03/01/24 22:14 O2 Sat by Pulse Oximetry 100 03/01/24 22:14 Pain Scale Pain Intensity 6 - Physical Exam General Appearance: no apparent distress, alert Eye Exam: PERRL/EOMI, eyes nml inspection Ears, Nose, Throat Exam: normal ENT inspection, moist mucous membranes Neck Exam: normal inspection, supple, full range of motion Respiratory Exam: normal breath sounds, airway intact, No respiratory distress Cardiovascular Exam: regular rate/rhythm, normal heart sounds, normal peripheral pulses Gastrointestinal/Abdomen Exam: soft, normal bowel sounds, No tenderness, No mass Back Exam: normal inspection, normal range of motion, No CVA tenderness, No vertebral tenderness Extremity Exam: normal inspection, normal range of motion, pelvis stable Neurologic Exam: alert, oriented x 3, cooperative, normal mood/affect, sensation nml, No motor deficits Skin Exam: normal color, warm, dry, No rash Lymphatic Exam: No adenopathy SpO2 Interpretation: normal SpO2: 100 O2 Delivery: Room Air - Course Nursing assessment & vital signs reviewed: Yes Ordered Tests: Medication Summary Discontinued Medications Generic Name Dose Route Start Last Admin Trade Name Sulaiman PRN Reason Stop Dose Admin Heparin Sodium (Beef Lung) Confirm 03/01/24 23:47 Heparin Lock Flush Pf 500 Units/5 Ml Syringe Administered 03/01/24 23:48 Dose 500 units .ROUTE .[employer] ONE - Progress Progress: improved Progress Note: 43-year-old female presents to our ED for an occluded PICC line. Per RN flush PICC line with heparin. PICC line flushed well. No complications. No indication for further workup. Will discharge home. Patient agrees to follow- up with her primary care doctor within 48 hours for reevaluation. Portions of this note were created with voice recognition technology. There may be grammatical, spelling, punctuation or sound alike errors Complexity of problem addressed is moderate acute complicated no critical care time. Complexity of data reviewed and analyzed is none. No specialized testing ordered. Diagnosis made based on history and physical exam. Risk of complication and or risk of morbidity/mortality of patient management is low. Vital stable. Time spent to discharge patient is approximately 10 minutes. Plan of care established for shared decision making. No social determinants of health present to impede follow-up. Portions of this note were created with voice recognition technology. There may be grammatical, spelling, punctuation or sound alike errors 03/01/24 23:55 Counseled pt/family regarding: diagnosis, need for follow-up - Departure Departure Disposition: Home Clinical Impression: Occluded PICC line Condition: Stable Critical Care Time: No Referrals: KALIE SY [Primary Care Provider] - Follow up/PCP as directed Additional Instructions: Discharge/Care Plan MERLYN LUX was seen on 03/01/24 in the Emergency Room. The patient was counseled regarding Diagnosis,Lab results, Imaging studies, need for follow up and when to return to the Emergency Room. Prescriptions given: Discharge Note I have spoken with the patient and/or caregivers. I have explained the patient's condition, diagnosis and treatment plan based on the information available to me at this time. I have answered the patient's and/or caregiver's questions and addressed any concerns. The patient and/or caregivers have as good understanding of the patient's diagnosis, condition and treatment plan as can be expected at this point. The vital signs have been stable. The patient's condition is stable and appropriate for discharge from the emergency department. The patient will pursue further outpatient evaluation with the primary care physician or other designated or consulting physician as outlined in the discharge instructions. The patient and/or caregivers are agreeable to this plan of care and follow-up instructions have been explained in detail. The patient and/or caregivers have received these instruction. The patient/and or caregivers are aware that any significant change in condition or worsening of symptoms should prompt an immediate return to this or the closest emergency department or call 911.
== END 2024-03-01 23:59 | disposition home or self-care (01) ==
LOC: ED 22:09
DX: T82.594A Other mechanical complication of infusion catheter, initial encounter (principal); Z79.899 Other long term (current) drug therapy
CPT/HCPCS: 99283; J1642

== ENCOUNTER 2024-04-17 11:58 | Emergency (ER) | payer BC ==
[2024-04-17 12:12] VITALS: PULSE 104; TEMP 98.1
[2024-04-17] MEDS ORDERED: NORCO 7.5/325 MG TAB PO ONE (12:32)
--- NOTE | 2024-04-17 12:43 | ERPHSYRPT ---
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 She is on TPN and sees pain managment. Recently changed to liquid norco which doesn't agree with her so she has consultation with palliative care. She is out of the norco solution and can't refill until 04/19. She reports 10/10 pain. Timing/Duration: constant Severity: severe Modifying Factors: Improves With: nothing. Worsens With: eating, movement Associated Symptoms: nausea, vomiting, abdominal pain, loss of appetite Allergies/Adverse Reactions: azithromycin Allergy (Verified 04/17/24 12:12) Muscle Aches naproxen [From Naprosyn] Allergy (Verified 04/17/24 12:12) tramadol Adverse Reaction (Verified 04/17/24 12:12) Nausea and Vomiting Home Medications: Pantoprazole 20 mg [Protonix 20MG Tablet] 20 mg PO BID 07/29/23 [History] Ubrogepant [Ubrelvy] 50 mg PO DAILY PRN 09/01/23 [History] Hyoscyamine Sulfate 0.125 mg [Anaspaz 0.125 mg] 0.125 mg PO QID 01/18/24 [History] Hydrocodone/Acetaminophen [Hydrocodone-Acetamn 7.5-325/15 ] 10 ml PO QID PRN 04/17/24 [History] Hx Tetanus, Diphtheria Vaccination/Date Given: Yes Hx Influenza Vaccination/Date Given: No Hx Pneumococcal Vaccination/Date Given: No Travel Risk - International Travel Have you traveled outside of the country in past 3 weeks: No - Emerging Infectious Disease Are you exhibiting symptoms associated with any current EIDs: Yes Symptoms: Abdominal Pain - Review of Systems All Other Systems: Reviewed and Negative - Past Medical History Pertinent Past Medical History: Yes Neurological History: Migraines ENT History: No Pertinent History Cardiac History: Deep Vein Thrombosis Respiratory History: No Pertinent History Endocrine Medical History: Hypothyroidism Musculoskeletal History: No Pertinent History GI Medical History: Other History: No Pertinent History Psycho-Social History: Anxiety, Depression Female Reproductive Disorders: Endometriosis, Fibroids Other Medical History: intestinal malrotation surg x2 ,brain surg chiarii - Past Surgical History Past Surgical History: Yes Neuro Surgical History: Other Cardiac: No Pertinent History Respiratory: No Pertinent History Gastrointestinal: Appendectomy, Cholecystectomy Genitourinary: No Pertinent History Musculoskeletal: No Pertinent History Female Surgical History: Hysterectomy, Section, Tubal Ligation Other Surgical History: brain surg chiari malformation, times 3, picc line in for hydration (taking TPN) - Female History Hx Last Menstrual Period: total hysterectomy in 2017 Hx Now: No - Social History Smoking Status: Never smoker Exposure to second hand smoke: No Drug Use: none - Social Determinants of Health Will the patient participate in the screening: Yes Do you worry about a steady place to live?: No Do you have any problems with any of the following?: No known problems In the past 12 months,have you had to go without utilities?: No Transportation Issues: No Has anyone in your support network made you feel unsafe?: No Have you or anyone in your house had to go w/o enough food: No - Nursing Vital Signs Nursing Vital Signs: Initial Vital Signs Temperature 98.1 F 04/17/24 12:02 Pulse Rate 104 H 04/17/24 12:02 Blood Pressure 103/73 04/17/24 12:02 O2 Sat by Pulse Oximetry 100 04/17/24 12:02 Pain Scale Pain Intensity 0 - Physical Exam General Appearance: moderate distress, anxiety Gastrointestinal/Abdomen Exam: tenderness Neurologic Exam: alert, oriented x 3, cooperative Skin Exam: normal color, warm, dry, No rash SpO2 Interpretation: normal SpO2: 100 O2 Delivery: Room Air - Course Nursing assessment & vital signs reviewed: Yes Ordered Tests: Medication Summary Discontinued Medications Generic Name Dose Route Start Last Admin Trade Name Freq PRN Reason Stop Dose Admin Hydrocodone Bitart/Acetaminophen 1 tab 04/17/24 12:32 Hydrocodone /Apap 7.5/325 Mg 1 Each Tablet PO 04/17/24 12:33 STAT ONE Hydrocodone Bitart/Acetaminophen 10 ml 04/17/24 12:44 Hydrocodone/Acetaminophen 5 Ml Udcup PO 04/22/24 12:43 Q4HPRN PRN PAIN Hydrocodone Bitart/Acetaminophen 8 tab 04/17/24 15:10 04/17/24 15:27 Hydrocodone/Apap 5/325 1 Tab Tablet PO 04/17/24 15:11 8 tab SENT HOME W/ PATIENT ONE Administration Hydrocodone Bitart/Acetaminophen Confirm 04/17/24 15:20 Hydrocodone/Apap 5/325 1 Tab Tablet Administered 04/17/24 15:21 Dose 8 tab .ROUTE .STK-MED ONE Droperidol 1.25 mg 04/17/24 15:00 04/17/24 15:27 Droperidol 5 Mg/2 Ml Vial IV 04/17/24 15:01 1.25 mg STAT ONE Administration Droperidol Confirm 04/17/24 15:20 Droperidol 5 Mg/2 Ml Vial Administered 04/17/24 15:21 Dose 5 mg .ROUTE .STK-MED ONE Hydromorphone HCl 2 mg 04/17/24 12:43 04/17/24 13:10 Hydromorphone 1 Mg/1ml Inj IV 04/17/24 12:44 2 mg STAT ONE Administration Hydromorphone HCl Confirm 04/17/24 13:08 Hydromorphone 1 Mg/1ml Inj Administered 04/17/24 13:09 Dose 2 mg .ROUTE .STK-MED ONE - Progress Progress: improved Progress Note: Patient given 2mg Dilaudid through her PICC line today. Will DC home with enough Ducor to bridge until she is able to turkey picker on 04/17. Medical Desision Making - Diagnostic Testing Diagnostic test were ordered, analyzed, and reviewed by me: No - Risk of complications The pt has a mod risk of morbidity or mortality based on: Need for prescription drug management - Departure Departure Disposition: Home Clinical Impression: Abdominal pain, Opioid withdrawal Condition: Good Critical Care Time: No Referrals: KALIE SY [Primary Care Provider] - Follow up/PCP as directed Instructions: Severe Abdominal Pain, Adult (DC) Prescriptions: Promethazine HCl 25 mg [Phenergan 25 mg] 25 mg PO QID #10 tablet
[2024-04-17] MEDS ORDERED: HYDROCODONE-ACETAMIN 2.5-108/5 ML SOLUTION PO PRN (12:44)
[2024-04-17] MEDS ORDERED: Hydromorphone 1 mg/ml Injection ONE (13:08)
[2024-04-17] MEDS: Hydromorphone 1 mg/ml Injection IV ONE (13:10)
[2024-04-17 15:13] VITALS: O2SAT 100
[2024-04-17] MEDS ORDERED: NORCO 5/325 MG ONE (15:20)
[2024-04-17] MEDS ORDERED: Inapsine 5 MG/2 ML ONE (15:20)
[2024-04-17] MEDS: NORCO 5/325 MG PO ONE (15:27)
[2024-04-17] MEDS: Inapsine 5 MG/2 ML IV ONE (15:27)
[2024-04-17 15:35] VITALS: BP 96/65
== END 2024-04-17 15:39 | disposition home or self-care (01) ==
LOC: ED 11:58
DX: R10.9 Unspecified abdominal pain (principal); F11.93 Opioid use, unspecified with withdrawal; Z79.899 Other long term (current) drug therapy
CPT/HCPCS: 96374; 96375; 99283; 99284; J1171; J1790; A9270-GY

== ENCOUNTER 2024-06-13 08:56 | Emergency (ER) | payer BC ==
--- NOTE | 2024-06-13 09:15 | ERPHSYRPT ---
- History of Present Illness Source: patient Exam Limitations: no limitations Physician History: The patient has a PICC line in her left antecubital area. It has been there for about 2 months now. She is requiring that because she requires TPN. It has been functioning fine. She just noticed a little bit of bleeding around the dressing site. It was bright red at first and now was coagulated and dark red. It is very minimal bleeding. There is no trauma or anything. The skin around it looks to be normal there is no evidence of infection.Nothing really makes his symptoms better or worse. Timing/Duration: today Allergies/Adverse Reactions: azithromycin Allergy (Verified 04/17/24 12:12) Muscle Aches naproxen [From Naprosyn] Allergy (Verified 04/17/24 12:12) tramadol Adverse Reaction (Verified 04/17/24 12:12) Nausea and Vomiting Home Medications: Pantoprazole 20 mg [Protonix 20MG Tablet] 20 mg PO BID 07/29/23 [History] Ubrogepant [Ubrelvy] 50 mg PO DAILY PRN 09/01/23 [History] Hyoscyamine Sulfate 0.125 mg [Anaspaz 0.125 mg] 0.125 mg PO QID 01/18/24 [History] Hydrocodone/Acetaminophen [Hydrocodone-Acetamn 7.5-325/15 ] 10 ml PO QID PRN 04/17/24 [History] Hx Tetanus, Diphtheria Vaccination/Date Given: Yes Hx Influenza Vaccination/Date Given: No Hx Pneumococcal Vaccination/Date Given: No Travel Risk - Emerging Infectious Disease Are you exhibiting symptoms associated with any current EIDs: Yes Symptoms: Abdominal Pain - Review of Systems Constitutional: No Symptoms Eyes: No Symptoms All Other Systems: Reviewed and Negative - Past Medical History Pertinent Past Medical History: Yes Neurological History: Migraines ENT History: No Pertinent History Cardiac History: Deep Vein Thrombosis Respiratory History: No Pertinent History Endocrine Medical History: Hypothyroidism Musculoskeletal History: No Pertinent History GI Medical History: Other History: No Pertinent History Psycho-Social History: Anxiety, Depression Female Reproductive Disorders: Endometriosis, Fibroids Other Medical History: intestinal malrotation surg x2 ,brain surg chiarii - Past Surgical History Past Surgical History: Yes Neuro Surgical History: Other Cardiac: No Pertinent History Respiratory: No Pertinent History Gastrointestinal: Appendectomy, Cholecystectomy Genitourinary: No Pertinent History Musculoskeletal: No Pertinent History Female Surgical History: Hysterectomy, Section, Tubal Ligation Other Surgical History: brain surg chiari malformation, times 3, picc line in for hydration (taking TPN) - Female History Hx Last Menstrual Period: total hysterectomy in 2017 - Social History Smoking Status: Never smoker Exposure to second hand smoke: No Drug Use: none - Social Determinants of Health Will the patient participate in the screening: Yes Do you worry about a steady place to live?: No In the past 12 months,have you had to go without utilities?: No Transportation Issues: No Has anyone in your support network made you feel unsafe?: No Have you or anyone in your house had to go w/o enough food: No - Physical Exam General Appearance: no apparent distress Extremity Exam: other (PICC line in the left antecubital fossa there was no complications that I could see. We tested the unit and it was functioning fine.) - Course Nursing assessment & vital signs reviewed: Yes - Progress Progress Note: The patient was stable throughout stay. We changed her dressing. The unit is functioning without problems. She is wanting to get a Silverio or Silverio equivalent placed. I am just going to have her call her primary doctor to arrange that. At this time the patient stable for discharge I see no reason for further evaluation. 06/13/24 09:15 - Departure Departure Disposition: Home Clinical Impression: Bleeding from PICC line Condition: Stable Critical Care Time: No Referrals: CALVIN DOBBINS DO [Primary Care Provider, [facility]] - Follow up/PCP as directed Additional Instructions: Return if symptoms worsen Follow-up with primary care doctor to schedule your new port. Continue current therapy
[2024-06-13 10:29] VITALS: BP 140/80; PULSE 70; RESP 16; TEMP 97.7; O2SAT 100
== END 2024-06-13 09:49 | disposition home or self-care (01) ==
LOC: ED 08:56
DX: T82.838A Hemorrhage due to vascular prosthetic devices, implants and grafts, initial encounter (principal); Z79.899 Other long term (current) drug therapy
CPT/HCPCS: 99281; J1642

== ENCOUNTER 2024-12-04 19:39 | Observation (INO) | payer BC, MEDICARE ==
--- NOTE | 2024-12-04 20:01 | ERPHSYRPT ---
- History of Present Illness Time Seen by Provider: 12/04/24 20:01 Source: patient Exam Limitations: no limitations Patient Subjective Stated Complaint: . Triage Nursing Assessment: . Physician History: Patient presents with fever since yesterday. She reports temperatures over 103 degrees with minimal responsiveness to Tylenol and ibuprofen. She has a long history of abdominal surgeries and is on TPN 2 times per week for feeds. She does not tolerate much by mouth. She reports nausea and vomiting. Denies cough, congestion, shortness of breath. She does have generalized abdominal pain. Timing/Duration: yesterday Fever Severity: moderate Fever Therapy ONLINE MARKETING ANALYST: Ibuprofen, Acetaminophen Associated Symptoms: abdominal pain, diaphoresis, muscle aches, nausea/vomiting, weakness, No chest pain, No confusion, No cough, No rash, No rhinorrhea, No shortness of breath, No sore throat, No stiff neck Allergies/Adverse Reactions: azithromycin Allergy (Verified 12/04/24 19:45) Muscle Aches Influenza Virus Vaccines Allergy (Verified 12/04/24 19:56) Vomiting naproxen [From Naprosyn] Allergy (Verified 12/04/24 19:45) tramadol Adverse Reaction (Verified 12/04/24 19:45) Nausea and Vomiting Home Medications: Pantoprazole 20 mg [Protonix 20MG Tablet] 20 mg IV BID 07/29/23 [History] Ubrogepant [Ubrelvy] 50 mg PO DAILY PRN 09/01/23 [History] Hydrocodone/Acetaminophen [Hydrocodone-Acetamn 7.5-325/15 ] 10 ml L QID PRN 04/17/24 [History] Enoxaparin Sodium [Lovenox] 80 mg SQ BID 12/04/24 [History] Methadone HCl 2.5 mg L TID 12/04/24 [History] Metoclopramide HCl 10 mg/2 ml* [Reglan 10 MG/2 ML] 10 mg IJ Q6H 12/04/24 [History] Promethazine HCl 25 mg [Phenergan 25 mg] 25 mg R QID 12/04/24 [History] Hx Tetanus, Diphtheria Vaccination/Date Given: Yes Hx Influenza Vaccination/Date Given: No Hx Pneumococcal Vaccination/Date Given: No Immunizations Up to Date: No Travel Risk - International Travel Have you traveled outside of the country in past 3 weeks: No - Emerging Infectious Disease Are you exhibiting symptoms associated with any current EIDs: Yes Symptoms: Fever, Headaches/Body Aches/, Vomitting - Review of Systems All Other Systems: Reviewed and Negative - Past Medical History Pertinent Past Medical History: Yes Neurological History: Migraines ENT History: No Pertinent History Cardiac History: Deep Vein Thrombosis Respiratory History: No Pertinent History Endocrine Medical History: No Pertinent History Musculoskeletal History: No Pertinent History GI Medical History: Other History: No Pertinent History Psycho-Social History: Anxiety, Depression Female Reproductive Disorders: Endometriosis, Fibroids Other Medical History: intestinal malrotation surg x2 ,brain surg chiarii - Past Surgical History Past Surgical History: Yes Neuro Surgical History: Other Cardiac: No Pertinent History Respiratory: No Pertinent History Gastrointestinal: Appendectomy, Cholecystectomy Genitourinary: No Pertinent History Musculoskeletal: No Pertinent History Female Surgical History: Hysterectomy, Section, Tubal Ligation Other Surgical History: brain surg chiari malformation, times 3, picc line in for hydration (taking TPN) - Female History Hx Last Menstrual Period: 2016 Hx Now: No - Social History Smoking Status: Never smoker Exposure to second hand smoke: No Drug Use: none - Social Determinants of Health Will the patient participate in the screening: Yes Do you worry about a steady place to live?: No Do you have any problems with any of the following?: No known problems In the past 12 months,have you had to go without utilities?: No Transportation Issues: No Has anyone in your support network made you feel unsafe?: No Have you or anyone in your house had to go w/o enough food: No - Nursing Vital Signs Nursing Vital Signs: Initial Vital Signs Temperature 100.1 F 12/04/24 19:48 Pulse Rate 129 H 12/04/24 19:48 Respiratory Rate 22 12/04/24 19:48 Blood Pressure 126/90 12/04/24 19:48 O2 Sat by Pulse Oximetry 92 L 12/04/24 19:48 Pain Scale Pain Intensity 4 - Physical Exam General Appearance: no apparent distress Eye Exam: PERRL/EOMI, eyes nml inspection Neck Exam: normal inspection, non-tender, supple, full range of motion Respiratory Exam: normal breath sounds, lungs clear, No no respiratory distress Cardiovascular/Chest Exam: normal heart sounds, tachycardia Gastrointestinal/Abdominal Exam: soft, normal bowel sounds, guarding, tenderness (generalized), No rebound Neurologic Exam: alert, oriented x 3, cooperative Skin Exam: normal color, warm, dry, No rash SpO2 Interpretation: borderline oxygenation SpO2: 92 O2 Delivery: Room Air - Course Nursing assessment & vital signs reviewed: Yes Ordered Tests: Active Orders 24 hr Category Date Time Status Call Admit Doctor for Orders ON ADMISSION Care 12/04/24 23:46 Active Code Status Order ROUTINE Care 12/04/24 23:46 Active IV Insertion STAT Care 12/04/24 20:[address] in Observation ROUTINE Care 12/04/24 23:46 Active NPO Diet 12/04/24 23:46 Active ABDOMEN AND PELVIS W/0 CONTRAS [CT] Stat Exams 12/04/24 20:09 Completed CHEST WITHOUT CONTRAST [CT] Stat Exams 12/04/24 20:12 Completed BLOOD CULTURE Stat Lab 12/04/24 20:52 Received CBC W DIFF Stat Lab 12/04/24 20:50 Completed CMP Stat Lab 12/04/24 20:50 Completed Lactic Acid Stat Lab 12/04/24 21:01 Completed MONO SCREEN Stat Lab 12/04/24 20:50 Completed UA W/RFX UR CULTURE Stat Lab 12/04/24 22:01 Completed VENOUS BLOOD GAS Stat Lab 12/04/24 21:01 Completed Transfer Order Routine Transfer 12/04/24 Completed Medication Summary Discontinued Medications Generic Name Dose Route Start Last Admin Trade Name Turnerq PRN Reason Stop Dose Admin Acetaminophen 640 mg 12/04/24 22:01 12/04/24 22:47 Acetaminophen 160 Mg/5 Ml Bottle PO 12/04/24 22:02 640 mg STAT ONE Administration Acetaminophen Confirm 12/04/24 22:46 Acetaminophen 160 Mg/5 Ml Bottle Administered 12/04/24 22:47 Dose 160 mg .ROUTE .STK-MED ONE Sodium Chloride 1,000 mls @ 999 mls/hr 12/04/24 20:09 12/04/24 21:37 Sodium Chloride 0.9% 1000 Ml IV 12/04/24 21:09 Infused .Q1H1M STA Infusion Piperacillin Sod/Tazobactam 100 mls @ 200 mls/hr 12/04/24 20:10 12/04/24 21:53 Sod 3.375 gm/ Sodium Chloride IV 12/04/24 20:39 Infused STAT STA Infusion Vancomycin HCl 1 gm in 200 mls @ 125 mls/hr 12/04/24 20:10 12/04/24 23:29 Vancomycin 1 Gram/200 Ml Bag IV 12/04/24 21:45 Infused STAT ONE Infusion Promethazine HCl 25 mg/ Sodium 101 mls @ 200 mls/hr 12/04/24 20:11 12/04/24 21:08 Chloride IV 12/04/24 20:41 Infused STAT ONE Infusion Sodium Chloride Confirm 12/04/24 20:29 Sodium Chloride 0.9% Administered 12/04/24 20:30 Dose 100 mls @ ud .ROUTE .STK-MED ONE Sodium Chloride Confirm 12/04/24 20:29 Sodium Chloride 0.9% 1000 Ml Administered 12/04/24 20:30 Dose 1,000 mls @ ud .ROUTE .STK-MED ONE Sodium Chloride Confirm 12/04/24 21:13 Sodium Chloride 0.9% Administered 12/04/24 21:14 Dose 100 mls @ ud .ROUTE .STK-MED ONE Sodium Chloride 1,000 mls @ 999 mls/hr 12/04/24 21:59 12/04/24 23:40 Sodium Chloride 0.9% 1000 Ml IV 12/04/24 22:59 0 mls/hr .Q1H1M STA Infusion Vancomycin HCl Confirm 12/04/24 21:56 Vancomycin 1 Gram/200 Ml Bag Administered 12/04/24 21:57 Dose 1 gm in 200 mls @ ud IV .STK-MED ONE Sodium Chloride Confirm 12/04/24 23:03 Sodium Chloride 0.9% 1000 Ml Administered 12/04/24 23:04 Dose 1,000 mls @ ud .ROUTE .STK-MED ONE Piperacillin Sod/Tazobactam Sod Confirm 12/04/24 21:12 Piperacillin/Tazobactam Sodium 3.375 Gm Vial Administered 12/04/24 21:13 Dose 3.375 gm IV .STK-MED ONE Promethazine HCl Confirm 12/04/24 20:29 Promethazine Hcl 25 Mg/Ml Vial Administered 12/04/24 20:30 Dose 25 mg .ROUTE .STK-MED ONE Lab/Rad Data: Laboratory Result Diagrams 12/04/24 20:50 12/04/24 20:50 Laboratory Results 12/04/24 12/04/24 12/04/24 Range/Units 22:01 21:01 20:55 WBC (3.98-10.04) x10^3/uL RBC (3.93-5.22) x10^6/uL Hgb (11.2-15.7) g/dL Hct (34.1-44.9) % MCV (79.4-94.8) fL MCH (25.6-32.2) pg MCHC (32.2-35.5) g/dL RDW (11.7-14.4) % Plt Count (182-369) x10^3/uL MPV (9.4-12.3) fL Gran % (34.0-71.1) % Immature Gran % (Auto) (0.001-0.429) % Nucleat RBC Rel Count (0.00-0.2) % Eos # (Auto) (0.04-0.36) x10^3/uL Immature Gran # (Auto) (0.001-0.031) x10^3u/L Absolute Lymphs (auto) (1.18-3.74) x10^3/uL Absolute Monos (auto) (0.24-0.86) x10^3/uL Absolute Nucleated RBC (0.00-0.012) x10^3u/L Lymphocytes % (19.3-51.7) % Monocytes % (4.7-12.5) % Eosinophils % (0.7-5.8) % Basophils % (0.1-1.2) % Absolute Granulocytes (1.56-6.13) x10^3/uL Basophils # (0.01-0.08) x10^3/uL pO2/FiO2 Ratio 21.0 % VBG pH 7.44 H (7.32-7.42) VBG pCO2 at Pat Temp 36 L (42-55) mm/Hg VBG pO2 at Pat Temp 33 (25-40) mm/Hg VBG HCO3 24.5 (22-28) meq/L VBG O2 Sat (Kevin) 58.8 L (95-100) VBG Base Excess 0.6 (-2.0-2.0) VBG Hemoglobin 11.9 VBG Carboxyhemoglobin 3.6 (0.0-6.9) % T HGB POC Potassium 3.2 L (3.5-5.1) Sodium (135-145) mmol/L Potassium (3.5-5.1) mmol/L Chloride (98-107) mmol/L Carbon Dioxide (22-30) mmol/L Anion Gap (5-15) MEQ/L BUN (7-17) mg/dL Creatinine (0.52-1.04) mg/dL Estimated GFR ML/MIN Glucose (74-106) mg/dL Lactic Acid 1.1 (0.4-2.0) Calcium (8.4-10.2) mg/dL Total Bilirubin (0.2-1.3) mg/dL AST (14-36) U/L ALT (0-35) U/L Alkaline Phosphatase (38-126) U/L Serum Total Protein (6.3-8.2) g/dL Albumin (3.5-5.0) g/dL Urine Color Yellow (Yellow) Urine Appearance Clear (Clear) Urine pH 7.0 (4.6-8.0) Ur Specific [place] <=1.005 (1.005-1.030) Urine Protein Negative (Negative) Urine Glucose (UA) Negative (Negative) mg/dL Urine Ketones Negative (Negative) Urine Blood Negative (Negative) Urine Nitrite Negative (Negative) Urine Bilirubin Negative (Negative) Urine Urobilinogen 0.2 (0.2) mg/dL Ur Leukocyte Esterase Trace A (Negative) U Hyaline Cast (Auto) NONE SEEN (0-2) /LPF Urine Microscopic RBC 0-2 (0-5) /HPF Urine Microscopic WBC 0-2 (0-5) /HPF Ur Epithelial Cells None Seen (None Seen) /HPF Urine Bacteria None Seen (None Seen) /HPF Urine Culture Reflexed NO (NO) Monoscreen (NEGATIVE) Influenza Type A Ag NEGATIVE (NEGATIVE) Influenza Type B Ag NEGATIVE (NEGATIVE) RSV (PCR) NEGATIVE (NEGATIVE) SARS-CoV-2 (PCR) NEGATIVE (NEGATIVE) Group A Strep Antibody (NEGATIVE) 12/04/24 12/04/24 12/04/24 Range/Units 20:55 20:50 20:50 WBC (3.98-10.04) x10^3/uL RBC (3.93-5.22) x10^6/uL Hgb (11.2-15.7) g/dL Hct (34.1-44.9) % MCV (79.4-94.8) fL MCH (25.6-32.2) pg MCHC (32.2-35.5) g/dL RDW (11.7-14.4) % Plt Count (182-369) x10^3/uL MPV (9.4-12.3) fL Gran % (34.0-71.1) % Immature Gran % (Auto) (0.001-0.429) % Nucleat RBC Rel Count (0.00-0.2) % Eos # (Auto) (0.04-0.36) x10^3/uL Immature Gran # (Auto) (0.001-0.031) x10^3u/L Absolute Lymphs (auto) (1.18-3.74) x10^3/uL Absolute Monos (auto) (0.24-0.86) x10^3/uL Absolute Nucleated RBC (0.00-0.012) x10^3u/L Lymphocytes % (19.3-51.7) % Monocytes % (4.7-12.5) % Eosinophils % (0.7-5.8) % Basophils % (0.1-1.2) % Absolute Granulocytes (1.56-6.13) x10^3/uL Basophils # (0.01-0.08) x10^3/uL pO2/FiO2 Ratio % VBG pH (7.32-7.42) VBG pCO2 at Pat Temp (42-55) mm/Hg VBG pO2 at Pat Temp (25-40) mm/Hg VBG HCO3 (22-28) meq/L VBG O2 Sat (Kevin) (95-100) VBG Base Excess (-2.0-2.0) VBG Hemoglobin VBG Carboxyhemoglobin (0.0-6.9) % T HGB POC Potassium (3.5-5.1) Sodium 136 (135-145) mmol/L Potassium 3.3 L (3.5-5.1) mmol/L Chloride 104 (98-107) mmol/L Carbon Dioxide 23 (22-30) mmol/L Anion Gap 11.7 (5-15) MEQ/L BUN 8 (7-17) mg/dL Creatinine 0.72 (0.52-1.04) mg/dL Estimated GFR 104.4 ML/MIN Glucose 112 H (74-106) mg/dL Lactic Acid (0.4-2.0) Calcium 8.6 (8.4-10.2) mg/dL Total Bilirubin 0.40 (0.2-1.3) mg/dL AST 87 H (14-36) U/L ALT 75 H (0-35) U/L Alkaline Phosphatase 190 H (38-126) U/L Serum Total Protein 7.6 (6.3-8.2) g/dL Albumin 4.1 (3.5-5.0) g/dL Urine Color (Yellow) Urine Appearance (Clear) Urine pH (4.6-8.0) Ur Specific [place] (1.005-1.030) Urine Protein (Negative) Urine Glucose (UA) (Negative) mg/dL Urine Ketones (Negative) Urine Blood (Negative) Urine Nitrite (Negative) Urine Bilirubin (Negative) Urine Urobilinogen (0.2) mg/dL Ur Leukocyte Esterase (Negative) U Hyaline Cast (Auto) (0-2) /LPF Urine Microscopic RBC (0-5) /HPF Urine Microscopic WBC (0-5) /HPF Ur Epithelial Cells (None Seen) /HPF Urine Bacteria (None Seen) /HPF Urine Culture Reflexed (NO) Monoscreen NEGATIVE (NEGATIVE) Influenza Type A Ag (NEGATIVE) Influenza Type B Ag (NEGATIVE) RSV (PCR) (NEGATIVE) SARS-CoV-2 (PCR) (NEGATIVE) Group A Strep Antibody NOT DETECTED (NEGATIVE) 12/04/24 Range/Units 20:50 WBC 10.2 H (3.98-10.04) x10^3/uL RBC 4.24 (3.93-5.22) x10^6/uL Hgb 11.2 (11.2-15.7) g/dL Hct 35.7 (34.1-44.9) % MCV 84.2 (79.4-94.8) fL MCH 26.4 (25.6-32.2) pg MCHC 31.4 L (32.2-35.5) g/dL RDW 14.4 (11.7-14.4) % Plt Count 266 (182-369) x10^3/uL MPV 10.8 (9.4-12.3) fL Gran % 88.1 H (34.0-71.1) % Immature Gran % (Auto) 0.3 (0.001-0.429) % Nucleat RBC Rel Count 0.0 (0.00-0.2) % Eos # (Auto) 0 L (0.04-0.36) x10^3/uL Immature Gran # (Auto) 0.03 (0.001-0.031) x10^3u/L Absolute Lymphs (auto) 0.74 L (1.18-3.74) x10^3/uL Absolute Monos (auto) 0.42 (0.24-0.86) x10^3/uL Absolute Nucleated RBC 0.00 (0.00-0.012) x10^3u/L Lymphocytes % 7.2 L (19.3-51.7) % Monocytes % 4.1 L (4.7-12.5) % Eosinophils % 0.0 L (0.7-5.8) % Basophils % 0.3 (0.1-1.2) % Absolute Granulocytes 9.01 H (1.56-6.13) x10^3/uL Basophils # 0.03 (0.01-0.08) x10^3/uL pO2/FiO2 Ratio % VBG pH (7.32-7.42) VBG pCO2 at Pat Temp (42-55) mm/Hg VBG pO2 at Pat Temp (25-40) mm/Hg VBG HCO3 (22-28) meq/L VBG O2 Sat (Kevin) (95-100) VBG Base Excess (-2.0-2.0) VBG Hemoglobin VBG Carboxyhemoglobin (0.0-6.9) % T HGB POC Potassium (3.5-5.1) Sodium (135-145) mmol/L Potassium (3.5-5.1) mmol/L Chloride (98-107) mmol/L Carbon Dioxide (22-30) mmol/L Anion Gap (5-15) MEQ/L BUN (7-17) mg/dL Creatinine (0.52-1.04) mg/dL Estimated GFR ML/MIN Glucose (74-106) mg/dL Lactic Acid (0.4-2.0) Calcium (8.4-10.2) mg/dL Total Bilirubin (0.2-1.3) mg/dL AST (14-36) U/L ALT (0-35) U/L Alkaline Phosphatase (38-126) U/L Serum Total Protein (6.3-8.2) g/dL Albumin (3.5-5.0) g/dL Urine Color (Yellow) Urine Appearance (Clear) Urine pH (4.6-8.0) Ur Specific [place] (1.005-1.030) Urine Protein (Negative) Urine Glucose (UA) (Negative) mg/dL Urine Ketones (Negative) Urine Blood (Negative) Urine Nitrite (Negative) Urine Bilirubin (Negative) Urine Urobilinogen (0.2) mg/dL Ur Leukocyte Esterase (Negative) U Hyaline Cast (Auto) (0-2) /LPF Urine Microscopic RBC (0-5) /HPF Urine Microscopic WBC (0-5) /HPF Ur Epithelial Cells (None Seen) /HPF Urine Bacteria (None Seen) /HPF Urine Culture Reflexed (NO) Monoscreen (NEGATIVE) Influenza Type A Ag (NEGATIVE) Influenza Type B Ag (NEGATIVE) RSV (PCR) (NEGATIVE) SARS-CoV-2 (PCR) (NEGATIVE) Group A Strep Antibody (NEGATIVE) - Progress Progress: improved Progress Note: Patient presented to the emergency room with fever over 103 degrees. She was tachycardic in the 120s. Sepsis protocol initiated. White count mildly elevated at 10.2. Lactic within normal limits at 1.1. COVID flu RSV strep and mono all negative. CMP remarkable for mild transaminitis. CT chest abdomen pelvis shows no significant acute findings. Patient was started on Vanc and Zosyn and 2 L of normal saline bolus given in the ER. Patient will need admission for IV antibiotics and will likely need central venous catheter exchanged. Spoke with Dr. Alejandra regarding admission, he accepts at 2320. Discussed with : Rafael Will see patient in: hospital (observation) Counseled pt/family regarding: lab results, diagnosis, need for follow-up, rad results Medical Desision Making - Discussion of managment Care discussed with:: hospitalist Reviewed:: Test results, Need for additional workup Agreed on:: Treatment plan, place in obs Will see patient: In office - Diagnostic Testing Diagnostic test were ordered, analyzed, and reviewed by me: Yes Radiological Interpretation: Interpreted by me, Reviewed by me, Teleradiologist Report - Risk of complications The pt has a mod risk of morbidity or mortality based on: Need for prescription drug management The pt has a high risk of morbidity or mortality based on: Decision regarding hospitilization or escalation of hosp level of care - Departure Departure Disposition: Observation Clinical Impression: Fever, Sepsis, Transaminitis Condition: Stable Critical Care Time: No
[2024-12-04] MEDS ORDERED: Phenergan 25 MG INJ ONE (20:29)
[2024-12-04] MEDS: Phenergan 25 MG INJ*** 25 MG in Sodium Chloride 0.9% 100 ML IV ONE (20:37)
[2024-12-04 21:05] LABS: VBG BASE EXCESS 0.6 (-2.0-2.0); VBG CARBOXYHEMOGLOBIN 3.6 % T HGB (0.0-6.9); VBG FIO2 21.0 %; VBG HCO3- 24.5 meq/L (22-28); VBG HEMOGLOBIN 11.9; VBG O2 SATURATION 58.8 (95-100); VBG PCO2 36.0 mm/Hg (42-55); VBG PO2 33.0 mm/Hg (25-40); VBG POTASSIUM 3.2 (3.5-5.1)
[2024-12-04 21:06] LABS: BASOPHIL % 0.3 % (0.1-1.2); Basophil (Absolute #) 0.03 x10^3/uL (0.01-0.08); Eosinophil (Absolute #) 0 x10^3/uL (0.04-0.36); Hematocrit 35.7 % (34.1-44.9); Hemoglobin 11.2 g/dL (11.2-15.7); IMMATURE GRAN # 0.03 x10^3u/L (0.001-0.031); IMMATURE GRAN % 0.3 % (0.001-0.429); Lymphocyte (Absolute #) 0.74 x10^3/uL (1.18-3.74); Mean Corpuscular Hemoglobin 26.4 pg (25.6-32.2); Mean Corpuscular Hgb Concent. 31.4 g/dL (32.2-35.5); Monocyte (Absolute #) 0.42 x10^3/uL (0.24-0.86); NUCLEATED RBC # 0.00 x10^3u/L (0.00-0.012); NUCLEATED RBC % 0.0 % (0.00-0.2); Platelet Count 266 x10^3/uL (182-369); Red Blood Count 4.24 x10^6/uL (3.93-5.22); White Blood Count 10.2 x10^3/uL (3.98-10.04)
[2024-12-04] MEDS ORDERED: PIPERACILLIN/TAZOBACTAM IV ONE (21:12)
[2024-12-04 21:19] LABS: Calcium 8.6 mg/dL (8.4-10.2); Carbon Dioxide 23.0 mmol/L (22-30); Creatinine 1 0.72 mg/dL (0.52-1.04); EST GLOMERULAR FILTRATION RATE 104.4 ML/MIN; Glucose 112.0 mg/dL (74-106); Potassium 3.3 mmol/L (3.5-5.1); SGOT/AST 87.0 U/L (14-36); SGPT/ALT 75.0 U/L (0-35); Total Protein 7.6 g/dL (6.3-8.2)
[2024-12-04 21:45] LABS: INFLUENZA A NEGATIVE (NEGATIVE); INFLUENZA B NEGATIVE (NEGATIVE); RESPIRATORY SYNCTIAL VIRUS NEGATIVE (NEGATIVE); SARS-CoV-2 Xpert Express NEGATIVE (NEGATIVE)
[2024-12-04] MEDS: VANCOMYCIN 1 GRAM/200 ML BAG 1 GM/200 ML PIGGYBACK IV ONE (21:56)
[2024-12-04] MEDS ORDERED: VANCOMYCIN 1 GRAM/200 ML BAG 1 GM/200 ML PIGGYBACK IV ONE (21:56)
--- NOTE | 2024-12-04 21:56 | XRAY ---
CLINICAL HISTORY: fever, cough COMPARISON: None. TECHNIQUE: Contiguous axial CT images of the chest were acquired without the administration of intravenous contrast. Coronal and sagittal reconstructions were obtained. One of the following dose reduction techniques was utilized for this exam: Automated exposure control, adjustment of the mA and/or kV according to patient size, and use of iterative reconstruction. FINDINGS: Lungs: The lung parenchyma is clear, with no evidence of consolidation or collapse. No pulmonary masses are identified. No evidence of interstitial lung disease or emphysema. No pleural effusion or pleural thickening. Bilateral lower lobe basal atelectatic bands with associated minimal pleuropulmonary reaction, suggesting sequelae of prior inflammatory or infectious process. A 4 mm calcified nodule is seen at the posterior right lower lung lobe, suggesting an old granuloma. Mediastinum: A left central venous line is seen passing along the left brachiocephalic vein, with its tip observed at the level of the left brachiocephalic vein with possible minimal extraluminal extension for 5 mm. Inadequate position of the central venous line. The mediastinum is normal in size and contour. No mediastinal mass or abnormal lymphadenopathy is present. Heart size is within normal limits. Minimal pericardial effusion. Hilar Structures: The hilar structures appear normal, without enlargement or abnormality. No atheromatous calcifications of the aorta or coronary arteries. Trachea and Main Bronchi: The trachea and main bronchi are patent, without evidence of obstruction or abnormality. Chest Wall: The chest wall is unremarkable, with no evidence of soft tissue or bony abnormalities. Upper Abdomen: Visualized portions of the liver, spleen, adrenal glands, and kidneys are unremarkable. Bones: Visualized osseous structures are normal, with no evidence of fracture or lytic/sclerotic lesions. IMPRESSION: 1. A left central venous line is seen passing along the left brachiocephalic vein, with its tip observed at the level of the left brachiocephalic vein, with possible minimal extraluminal extension for 5 mm. 2. Inadequate position of the central venous line. It is not associated with fat stranding or hematoma. Clinical correlation and repositioning are advised if clinically indicated. 3. Minimal pericardial effusion. 4. No detected consolidation or active pulmonary infiltrates. 5. Bilateral lower lobe basal atelectatic bands with associated minimal pleuropulmonary reaction, suggesting sequelae of prior inflammatory or infectious process. 6. A 4 mm calcified nodule is seen at the posterior right lower lung lobe, suggesting an old granuloma. No need for follow-up. Electronically Signed by: Enrique Lora MD. (12/04/2024 21:55:14 EDT)
[2024-12-04 22:15] LABS: Glucose, Urine Negative (Negative); Protein,Urine Dip Negative (Negative); RBC 0-2 /HPF (0-5); WBC 0-2 /HPF (0-5)
--- NOTE | 2024-12-04 22:24 | XRAY ---
CLINICAL HISTORY: abd pain COMPARISON: Comparison is made with the previous CT study on 02/21/2022. TECHNIQUE: Non-contrast CT of the abdomen and pelvis was performed with the following protocol: axial images and reconstructed coronal and sagittal images. No intravenous contrast was administered. One of the following dose reduction techniques was utilized for this exam: automated exposure control, adjustment of the mA and/or kV according to patient size, and use of iterative reconstruction. FINDINGS: Lower chest: Bilateral basal atelectatic bands are noted. Abdomen: Liver: The liver is normal in size, shape, and density. No focal lesions, cysts, or masses are identified. Gallbladder and Biliary System: The gallbladder is surgically removed. Pancreas: The pancreatic head, body, and tail are visualized and appear normal in size and density. No pancreatic masses or calcifications are noted. Spleen: The spleen is normal in size, shape, and density. No splenic lesions or masses are identified. Kidneys and Adrenal Glands: Both kidneys are normal in size, shape, and position. Cortical thickness is within normal limits. No right renal calculi or hydronephrosis are seen. A small (3 mm) left renal middle calyceal stone is present. The adrenal glands are unremarkable. Appendix: The appendix could not be identified. Pelvis: Urinary bladder: Normal in contour and wall thickness. No intraluminal lesions are seen. Uterus and ovaries: Not well visualized, but no gross abnormalities are noted. Suggested hysterectomy. Vagina: Normal in contour and wall thickness. Peritoneal and Retroperitoneal Structures: No free fluid or abnormal fluid collections are identified within the abdomen or pelvis. No lymphadenopathy is noted. Bowel: The visualized bowel loops are normal in caliber and appearance. There is no evidence of bowel obstruction or wall thickening. Bones and Soft Tissues: Pelvic bones and soft tissues are unremarkable. No fractures or abnormal masses are identified. A T12 vertebral body lucent lesion is present, suggestive of hemangioma. Soft tissue densities are noted in the subcutaneous layer of the anterior abdominal wall, which could represent injection granulomas. IMPRESSION: No evidence of acute intra-abdominal pathology. No interval changes compared to the previous study. Electronically Signed by: Enrique Lora MD. (12/04/2024 22:22:26 EDT)
[2024-12-04] MEDS ORDERED: TYLENOL SUSPENSION 160 MG/5 ML ONE (22:46)
[2024-12-04] MEDS: TYLENOL SUSPENSION 160 MG/5 ML PO ONE (22:47)
--- NOTE | 2024-12-05 01:13 | PCM.HP ---
History of Present Illness - Chief Complaint Chief Complaint: Fever, Sepsis, Transaminitis Date: 12/04/24 History of Present Illness: TELEMEDICINE H&P Patient name: Alpa LUX Date of : 1980 Date of consultation: 04 December 2024 Inpatient primary provider: Reason for consult: Inpatient internal medicine consultation for fever and chills. Room: [facility] Assessment and Plan 1?. Sepsis secondary to line infection (acute, uncontrolled) - Likely secondary to an infected central line. - Continue broad-spectrum antibiotics with vancomycin and Zosyn. - Will arrange for Dr. Lombardi to be contacted in the morning for line replacement. - Monitor blood cultures. 2?. Headache (acute, uncontrolled) - Reported a headache during the consultation. - Will administer morphine 1 mg IV for analgesia. 3?. Intestinal Malrotation (chronic, stable) - Requires TPN via a chest line. - Continue TPN as per usual regimen. 4?. History of superficial thrombophlebitis (chronic, stable) - History of two superficial blood clots in the right leg. - No current signs of deep vein thrombosis. Will monitor clinically. --- Subjective: Reason for Visit: - Admitted to the hospital for evaluation of high-grade fever and severe chills. History of Present Illness: - Woke up during the night on Thursday with severe cold chills and fever. Attempted to rest throughout the day. The fever escalated to 103.9F, prompting her to bring her to the hospital for evaluation. The primary concern is a potential infection of her central line, as other initial tests have been negative. Past Medical History: - Intestinal malrotation requiring TPN and IV fluids/medications via a central chest line. The line was placed in early July 2024. This is the first complication experienced with the current line. - History of two superficial blood clots in the right leg, one located just above the knee on the inner aspect and one behind the knee. Medication History: Inpatient Medications - Zosyn (piperacillin/tazobactam) administered in the Emergency Department. - Vancomycin administered in the Emergency Department. - Morphine 1 mg IV ordered for headache. Outpatient Medications - Receives TPN, IV fluids, and IV medications via a central line. Specific medications were not detailed. - Allergies: Erythromycin (causes significant water retention and swelling), anaprox, tramadol, and the flu vaccine. Social History: - Denies heart problems. Review of Systems: - Constitutional: Reports severe chills and fever up to 103.9F. - Cardiovascular: Denies chest pain, shortness of breath. - Gastrointestinal: Reports chronic diarrhea, which has not changed from baseline. - Neurological: Reports a headache. --- Physical examination Vital Signs - Temperature: 103.9F (peak) Neurological Alert and oriented, though reports headache and difficulty thinking clearly. Cardiovascular Regular rate and rhythm. S1 and S2 are normal. No murmurs, rubs, or gallops. No jugular venous distention. Respiratory Lungs are clear to auscultation bilaterally. No wheezes, rales, or rhonchi. Abdominal Abdomen is tender to palpation. Musculoskeletal No lower extremity edema appreciated. --- Labs Reviewed - Blood cultures were drawn in the Emergency Department. Results are pending. Independently reviewed and interpreted by me. Studies Reviewed Notes reviewed The primary provider, Dr. Lynch's, assessment that the line is the likely source of infection was reviewed and considered. Thank you for allowing me and my team participate in the care of this patient. Do not hesitate to contact me with any questions or concerns. Dagoberto Alejandra MD Tele Hospitalist Interventional/Structural/General Ele[facility]ated [employer] [facility] [employer] --- MDM Summary 1. Number and Complexity of Problems Addressed (CoPA): - High Complexity: The patient presents with sepsis, an acute illness that poses a threat to life or bodily function, likely originating from a central line infection. This is a severe exacerbation of a chronic condition (reliance on TPN ) requiring intensive management. 2. Amount and/or Complexity of Data to be Reviewed and Analyzed (Data): - Limited: The decision-making process involved reviewing the history of present illness, discussing the case with the nurse, independently interpreting the physical exam findings, and reviewing the plan from the primary provider. Blood cultures were reviewed as pending. 3. Risk of Complications, Morbidity, and/or Mortality (Risk): - High Risk: The management plan involves the administration of multiple IV antibiotics (Vancomycin, Zosyn) which require monitoring. The patient also received a parenteral controlled substance (Morphine). The decision was made to pursue an escalation of care via consultation for a procedural intervention (line replacement). The underlying diagnosis of sepsis carries a high risk of morbidity and mortality. Medications & Allergies Home Medications: Home Medication List Pantoprazole 20 mg [Protonix 20MG Tablet] 20 mg IV BID 07/29/23 [History Confirmed 12/04/24] Ubrogepant [Ubrelvy] 50 mg PO DAILY PRN 09/01/23 [History Confirmed 12/04/24] Hydrocodone/Acetaminophen [Hydrocodone-Acetamn 7.5-325/15 ] 10 ml L QID PRN 04/17/24 [History Confirmed 12/04/24] Enoxaparin Sodium [Lovenox] 80 mg SQ BID 12/04/24 [History Confirmed 12/04/24] Methadone HCl 2.5 mg L TID 12/04/24 [History Confirmed 12/04/24] Metoclopramide HCl 10 mg/2 ml* [Reglan 10 MG/2 ML] 10 mg IJ Q6H 12/04/24 [History Confirmed 12/04/24] Promethazine HCl 25 mg [Phenergan 25 mg] 25 mg R QID 12/04/24 [History Confirmed 12/04/24] Allergies/Adverse Reactions: Allergies Allergy/AdvReac Type Severity Reaction Status Date / Time azithromycin Allergy Muscle Verified 12/04/24 19:45 Aches Influenza Virus Vaccines Allergy Vomiting Verified 12/04/24 19:56 naproxen [From Naprosyn] Allergy Verified 12/04/24 19:45 tramadol AdvReac Nausea and Verified 12/04/24 19:45 Vomiting - Past Medical History Past Medical History: Yes Neurological History: Migraines ENT History: No Pertinent History Cardiac History: Deep Vein Thrombosis Respiratory History: No Pertinent History Endocrine Medical History: No Pertinent History Musculoskelatal History: No Pertinent History GI Medical History: Other History: No Pertinent History Pyscho-Social History: Anxiety, Depression Reproductive Disorders: Endometriosis, Fibroids Comment: intestinal malrotation surg x2 ,brain surg chiarii - Female History Hx Last Menstrual Period: 2017 Are you now?: No - Past Surgical History Past Surgical History: Yes Neuro Surgical History: Other Cardiac History: No Pertinent History Respiratory Surgery: No Pertinent History GI Surgical History: Appendectomy, Cholecystectomy Genitourinary Surgical Hx: No Pertinent History Musculskeletal Surgical Hx: No Pertinent History Female Surgical History: Hysterectomy, Section, Tubal Ligation Other Surgical History: brain surg chiari malformation, times 3, picc line in for hydration (taking TPN) - Social History Smoking Status: Never smoker Exposure to second hand smoke: No Alcohol: None Drug Use: none - Social Determinants of Health Will the patient participate in the screening: Yes Do you worry about a steady place to live?: No Do you have any problems with any of the following?: No known problems In the past 12 months,have you had to go without utilities?: No Have you or anyone in your house had to go without enough: No Transportation Issues: No Has anyone in your support network made you feel unsafe?: No Does the patient want assistance with any of the above?: No - Physical Exam Vital Signs: Vital Signs - 24 hr Temp Pulse Resp BP BP Pulse Ox 12/05/24 00:06 92 L 12/04/24 23:46 100.2 F 112 H 19 115/62 97 12/04/24 23:00 111 H 21 103/70 94 L 12/04/24 22:30 112 H 21 111/68 94 L 12/04/24 21:30 125 H 24 99/62 94 L 12/04/24 21:00 109 H 21 109/67 95 12/04/24 20:30 109 H 20 98/64 96 12/04/24 20:00 120 H 20 111/74 92 L 12/04/24 19:48 100.1 F 129 H 22 126/90 92 L Results - Labs Lab/Micro Results: Lab Results-Last 24 Hours 12/04/24 12/04/24 12/04/24 Range/Units 20:50 20:50 20:50 WBC 10.2 H (3.98-10.04) x10^3/uL RBC 4.24 (3.93-5.22) x10^6/uL Hgb 11.2 (11.2-15.7) g/dL Hct 35.7 (34.1-44.9) % MCV 84.2 (79.4-94.8) fL MCH 26.4 (25.6-32.2) pg MCHC 31.4 L (32.2-35.5) g/dL RDW 14.4 (11.7-14.4) % Plt Count 266 (182-369) x10^3/uL MPV 10.8 (9.4-12.3) fL Gran % 88.1 H (34.0-71.1) % Immature Gran % (Auto) 0.3 (0.001-0.429) % Nucleat RBC Rel Count 0.0 (0.00-0.2) % Eos # (Auto) 0 L (0.04-0.36) x10^3/uL Immature Gran # (Auto) 0.03 (0.001-0.031) x10^3u/L Absolute Lymphs (auto) 0.74 L (1.18-3.74) x10^3/uL Absolute Monos (auto) 0.42 (0.24-0.86) x10^3/uL Absolute Nucleated RBC 0.00 (0.00-0.012) x10^3u/L Lymphocytes % 7.2 L (19.3-51.7) % Monocytes % 4.1 L (4.7-12.5) % Eosinophils % 0.0 L (0.7-5.8) % Basophils % 0.3 (0.1-1.2) % Absolute Granulocytes 9.01 H (1.56-6.13) x10^3/uL Basophils # 0.03 (0.01-0.08) x10^3/uL pO2/FiO2 Ratio % VBG pH (7.32-7.42) VBG pCO2 at Pat Temp (42-55) mm/Hg VBG pO2 at Pat Temp (25-40) mm/Hg VBG HCO3 (22-28) meq/L VBG O2 Sat (Kevin) (95-100) VBG Base Excess (-2.0-2.0) VBG Hemoglobin VBG Carboxyhemoglobin (0.0-6.9) % T HGB POC Potassium (3.5-5.1) Sodium 136 (135-145) mmol/L Potassium 3.3 L (3.5-5.1) mmol/L Chloride 104 (98-107) mmol/L Carbon Dioxide 23 (22-30) mmol/L Anion Gap 11.7 (5-15) MEQ/L BUN 8 (7-17) mg/dL Creatinine 0.72 (0.52-1.04) mg/dL Estimated GFR 104.4 ML/MIN Glucose 112 H (74-106) mg/dL Lactic Acid (0.4-2.0) Calcium 8.6 (8.4-10.2) mg/dL Total Bilirubin 0.40 (0.2-1.3) mg/dL AST 87 H (14-36) U/L ALT 75 H (0-35) U/L Alkaline Phosphatase 190 H (38-126) U/L Serum Total Protein 7.6 (6.3-8.2) g/dL Albumin 4.1 (3.5-5.0) g/dL Urine Color (Yellow) Urine Appearance (Clear) Urine pH (4.6-8.0) Ur Specific [place] (1.005-1.030) Urine Protein (Negative) Urine Glucose (UA) (Negative) mg/dL Urine Ketones (Negative) Urine Blood (Negative) Urine Nitrite (Negative) Urine Bilirubin (Negative) Urine Urobilinogen (0.2) mg/dL Ur Leukocyte Esterase (Negative) U Hyaline Cast (Auto) (0-2) /LPF Urine Microscopic RBC (0-5) /HPF Urine Microscopic WBC (0-5) /HPF Ur Epithelial Cells (None Seen) /HPF Urine Bacteria (None Seen) /HPF Urine Culture Reflexed (NO) Monoscreen NEGATIVE (NEGATIVE) Influenza Type A Ag (NEGATIVE) Influenza Type B Ag (NEGATIVE) RSV (PCR) (NEGATIVE) SARS-CoV-2 (PCR) (NEGATIVE) Group A Strep Antibody (NEGATIVE) 12/04/24 12/04/24 12/04/24 Range/Units 20:55 20:55 21:01 WBC (3.98-10.04) x10^3/uL RBC (3.93-5.22) x10^6/uL Hgb (11.2-15.7) g/dL Hct (34.1-44.9) % MCV (79.4-94.8) fL MCH (25.6-32.2) pg MCHC (32.2-35.5) g/dL RDW (11.7-14.4) % Plt Count (182-369) x10^3/uL MPV (9.4-12.3) fL Gran % (34.0-71.1) % Immature Gran % (Auto) (0.001-0.429) % Nucleat RBC Rel Count (0.00-0.2) % Eos # (Auto) (0.04-0.36) x10^3/uL Immature Gran # (Auto) (0.001-0.031) x10^3u/L Absolute Lymphs (auto) (1.18-3.74) x10^3/uL Absolute Monos (auto) (0.24-0.86) x10^3/uL Absolute Nucleated RBC (0.00-0.012) x10^3u/L Lymphocytes % (19.3-51.7) % Monocytes % (4.7-12.5) % Eosinophils % (0.7-5.8) % Basophils % (0.1-1.2) % Absolute Granulocytes (1.56-6.13) x10^3/uL Basophils # (0.01-0.08) x10^3/uL pO2/FiO2 Ratio 21.0 % VBG pH 7.44 H (7.32-7.42) VBG pCO2 at Pat Temp 36 L (42-55) mm/Hg VBG pO2 at Pat Temp 33 (25-40) mm/Hg VBG HCO3 24.5 (22-28) meq/L VBG O2 Sat (Kevin) 58.8 L (95-100) VBG Base Excess 0.6 (-2.0-2.0) VBG Hemoglobin 11.9 VBG Carboxyhemoglobin 3.6 (0.0-6.9) % T HGB POC Potassium 3.2 L (3.5-5.1) Sodium (135-145) mmol/L Potassium (3.5-5.1) mmol/L Chloride (98-107) mmol/L Carbon Dioxide (22-30) mmol/L Anion Gap (5-15) MEQ/L BUN (7-17) mg/dL Creatinine (0.52-1.04) mg/dL Estimated GFR ML/MIN Glucose (74-106) mg/dL Lactic Acid 1.1 (0.4-2.0) Calcium (8.4-10.2) mg/dL Total Bilirubin (0.2-1.3) mg/dL AST (14-36) U/L ALT (0-35) U/L Alkaline Phosphatase (38-126) U/L Serum Total Protein (6.3-8.2) g/dL Albumin (3.5-5.0) g/dL Urine Color (Yellow) Urine Appearance (Clear) Urine pH (4.6-8.0) Ur Specific [place] (1.005-1.030) Urine Protein (Negative) Urine Glucose (UA) (Negative) mg/dL Urine Ketones (Negative) Urine Blood (Negative) Urine Nitrite (Negative) Urine Bilirubin (Negative) Urine Urobilinogen (0.2) mg/dL Ur Leukocyte Esterase (Negative) U Hyaline Cast (Auto) (0-2) /LPF Urine Microscopic RBC (0-5) /HPF Urine Microscopic WBC (0-5) /HPF Ur Epithelial Cells (None Seen) /HPF Urine Bacteria (None Seen) /HPF Urine Culture Reflexed (NO) Monoscreen (NEGATIVE) Influenza Type A Ag NEGATIVE (NEGATIVE) Influenza Type B Ag NEGATIVE (NEGATIVE) RSV (PCR) NEGATIVE (NEGATIVE) SARS-CoV-2 (PCR) NEGATIVE (NEGATIVE) Group A Strep Antibody NOT DETECTED (NEGATIVE) 12/04/24 Range/Units 22:01 WBC (3.98-10.04) x10^3/uL RBC (3.93-5.22) x10^6/uL Hgb (11.2-15.7) g/dL Hct (34.1-44.9) % MCV (79.4-94.8) fL MCH (25.6-32.2) pg MCHC (32.2-35.5) g/dL RDW (11.7-14.4) % Plt Count (182-369) x10^3/uL MPV (9.4-12.3) fL Gran % (34.0-71.1) % Immature Gran % (Auto) (0.001-0.429) % Nucleat RBC Rel Count (0.00-0.2) % Eos # (Auto) (0.04-0.36) x10^3/uL Immature Gran # (Auto) (0.001-0.031) x10^3u/L Absolute Lymphs (auto) (1.18-3.74) x10^3/uL Absolute Monos (auto) (0.24-0.86) x10^3/uL Absolute Nucleated RBC (0.00-0.012) x10^3u/L Lymphocytes % (19.3-51.7) % Monocytes % (4.7-12.5) % Eosinophils % (0.7-5.8) % Basophils % (0.1-1.2) % Absolute Granulocytes (1.56-6.13) x10^3/uL Basophils # (0.01-0.08) x10^3/uL pO2/FiO2 Ratio % VBG pH (7.32-7.42) VBG pCO2 at Pat Temp (42-55) mm/Hg VBG pO2 at Pat Temp (25-40) mm/Hg VBG HCO3 (22-28) meq/L VBG O2 Sat (Kevin) (95-100) VBG Base Excess (-2.0-2.0) VBG Hemoglobin VBG Carboxyhemoglobin (0.0-6.9) % T HGB POC Potassium (3.5-5.1) Sodium (135-145) mmol/L Potassium (3.5-5.1) mmol/L Chloride (98-107) mmol/L Carbon Dioxide (22-30) mmol/L Anion Gap (5-15) MEQ/L BUN (7-17) mg/dL Creatinine (0.52-1.04) mg/dL Estimated GFR ML/MIN Glucose (74-106) mg/dL Lactic Acid (0.4-2.0) Calcium (8.4-10.2) mg/dL Total Bilirubin (0.2-1.3) mg/dL AST (14-36) U/L ALT (0-35) U/L Alkaline Phosphatase (38-126) U/L Serum Total Protein (6.3-8.2) g/dL Albumin (3.5-5.0) g/dL Urine Color Yellow (Yellow) Urine Appearance Clear (Clear) Urine pH 7.0 (4.6-8.0) Ur Specific [place] <=1.005 (1.005-1.030) Urine Protein Negative (Negative) Urine Glucose (UA) Negative (Negative) mg/dL Urine Ketones Negative (Negative) Urine Blood Negative (Negative) Urine Nitrite Negative (Negative) Urine Bilirubin Negative (Negative) Urine Urobilinogen 0.2 (0.2) mg/dL Ur Leukocyte Esterase Trace A (Negative) U Hyaline Cast (Auto) NONE SEEN (0-2) /LPF Urine Microscopic RBC 0-2 (0-5) /HPF Urine Microscopic WBC 0-2 (0-5) /HPF Ur Epithelial Cells None Seen (None Seen) /HPF Urine Bacteria None Seen (None Seen) /HPF Urine Culture Reflexed NO (NO) Monoscreen (NEGATIVE) Influenza Type A Ag (NEGATIVE) Influenza Type B Ag (NEGATIVE) RSV (PCR) (NEGATIVE) SARS-CoV-2 (PCR) (NEGATIVE) Group A Strep Antibody (NEGATIVE) - Radiology Impressions Radiology Exams & Impressions: Radiology Procedures Category Date Time Status ABDOMEN AND PELVIS W/0 CONTRAS [CT] Stat Exams 12/04/24 20:09 Completed CHEST WITHOUT CONTRAST [CT] Stat Exams 12/04/24 20:12 Completed Telemedicine Encounter - Telemedicine Encounter Telemedicine Encounter: "The entirety of this encounter was performed via Telemedicine" This visit was performed using real-time audio and video connection between my location and thepatients locationwith the assistance of a surrogateat the patients location. Written or verbal consent was obtained from the patient/guardian to perform this visit using[employer] Medialemedicine technology. Any patient questions regarding the telemedicine interaction were answered.
[2024-12-05] MEDS ORDERED: MORPHINE SULFATE 4 MG INJ ONE (01:44)
[2024-12-05] MEDS: MORPHINE SULFATE 2 MG INJ IV ONE (01:52)
[2024-12-05] MEDS: MORPHINE SULFATE 4 MG INJ IV ONE (01:52)
[2024-12-05] MEDS ORDERED: Phenergan 25 MG INJ ONE (04:37)
[2024-12-05] MEDS: Phenergan 25 MG INJ*** 12.5 MG in Sodium Chloride 0.9% 100 ML IV ONE (04:44)
[2024-12-05 04:57] LABS: Hematocrit 31.3 % (34.1-44.9); Hemoglobin 9.8 g/dL (11.2-15.7); Mean Corpuscular Hemoglobin 26.2 pg (25.6-32.2); Mean Corpuscular Hgb Concent. 31.3 g/dL (32.2-35.5); Platelet Count 256 x10^3/uL (182-369); Red Blood Count 3.74 x10^6/uL (3.93-5.22); White Blood Count 7.9 x10^3/uL (3.98-10.04)
[2024-12-05] MEDS: Hydromorphone 1 mg/ml Injection IV ONE (04:59)
[2024-12-05 05:34] LABS: Calcium 8.1 mg/dL (8.4-10.2); Carbon Dioxide 24.0 mmol/L (22-30); Creatinine 1 0.62 mg/dL (0.52-1.04); EST GLOMERULAR FILTRATION RATE 111.2 ML/MIN; Glucose 111.0 mg/dL (74-106); Potassium 3.4 mmol/L (3.5-5.1); SGOT/AST 63.0 U/L (14-36); SGPT/ALT 64.0 U/L (0-35); Total Protein 6.4 g/dL (6.3-8.2)
[2024-12-05 07:30] VITALS: RESP 16
[2024-12-05] MEDS ORDERED: NON-FORMULARY ITEM (Non-Formulary Drug [Non-Formulary Item] 1 EACH Each) IV SCH ×2 (08:15)
[2024-12-05] MEDS ORDERED: UBROGEPANT 50 MG PO PRN (08:15)
[2024-12-05] MEDS: PHARMACY DOSING REQUIRED: VANCOMYCIN IV STA (08:26)
[2024-12-05] MEDS ORDERED: LACTATED RINGERS IV PRN ×2 (08:33→20:00)
[2024-12-05] MEDS ORDERED: VITAMINS FOR INFUSION IV PRN ×2 (08:33→20:00)
[2024-12-05] MEDS: POTASSIUM CHLORIDE 20 mEq IN WATER 100ML 100 ML IV SCH (08:40)
[2024-12-05] MEDS: TYLENOL SUSPENSION 160 MG/5 ML PO PRN (08:40)
[2024-12-05] MEDS: Imitrex 6 MG/0.5 ML SQ STA (08:48)
[2024-12-05] MEDS: DOLOPHINE 10MG Tablet PO SCH (09:42)
[2024-12-05] MEDS: ENOXAPARIN SODIUM SQ SCH (09:44)
[2024-12-05] MEDS: VANCOMYCIN 1.25 GM/250 ML BAG 1.25 GM/250 ML PIGGYBACK IV SCH (09:45)
[2024-12-05] MEDS ORDERED: Protonix 20MG Tablet PO SCH (10:00)
[2024-12-05] MEDS: Reglan 10 MG/2 ML IV SCH (11:38)
[2024-12-05] MEDS: NORCO 5/325 MG PO PRN (11:46)
--- NOTE | 2024-12-05 11:59 | PCM.NOTE ---
Date and Time: 12/05/24 1152 Subjective Assessment: The patient is a 44-year-old female with a past medical history of migraines and intestinal malrotation requiring total parenteral nutrition (TPN) and IV fluids/medications via a central chest line, which was placed in early July 2024. She also has a history of two superficial blood clots in the right legone above the knee on the inner aspect and one behind the knee. The patient was admitted on 12/04/24 for evaluation of high-grade fever and severe chills. She awoke during the night on Thursday with intense cold chills and a fever, which she attempted to manage at home throughout the day. Her temperature spiked to 103.9F, prompting her to bring her to the hospital. The primary concern is a central line infection, as initial testing for other causes has been negative. She was started on broad-spectrum IV antibiotics, including vancomycin and Zosyn. Dr. Lombardi has been consulted for central line removal and replacement. The patient was septic on admission. As of 12/05/24, the patient remains in bed and reports that she continues to feel unwell. She is currently NPO in preparation for possible central line removal and replacement later today. Her white blood cell count is stable at 7.9, and her potassium is slightly low at 3.4, which has been replaced IV due to her NPO status. She was given subcutaneous Imitrex for a migraine. Blood cultures 2 are pending. She remains on telemetry. She has had a persistent fever overnight, with a current temperature of 100.3F and a peak of 101F. Liver enzymes are improving, with AST at 63 and ALT at 64. The patient has requested to delay restarting TPN until tomorrow and prefers to resume her usual Thursday and Thursday TPN schedule. IV antibiotics will be continued for presumed central line infection. She denies any additional concerns at this time. - Review of Systems Constitutional: Fatigue, Malaise, No Fever, No Chills Eyes: No Symptoms Ears, Nose, & Throat: No Symptoms Respiratory: No Cough, No Short Of Breath Cardiac: No Chest Pain, No Edema, No Syncope Abdominal/Gastrointestinal: Diarrhea (- chronic), No Abdominal Pain, No Nausea, No Vomiting Genitourinary Symptoms: No Dysuria Musculoskeletal: No Back Pain, No Neck Pain Skin: No Rash Neurological: No Dizziness, No Focal Weakness, No Sensory Changes Psychological: No Symptoms Endocrine: No Symptoms Hematologic/Lymphatic: No Symptoms Immunological/Allergic: No Symptoms Objective Exam General Appearance: no apparent distress, alert, obese Neurologic Exam: alert, oriented x 3, cooperative, normal mood/affect, nml cerebellar function, sensation nml, No motor deficits Skin Exam: normal color, warm, dry Eye Exam: PERRL, EOMI, eyes nml inspection Ears, Nose, Throat Exam: normal ENT inspection, pharynx normal, moist mucous membranes Neck Exam: normal inspection, non-tender, supple, full range of motion Respiratory Exam: normal breath sounds, lungs clear, No respiratory distress Cardiovascular Exam: regular rate/rhythm, normal heart sounds Gastrointestinal/Abdomen Exam: soft, No tenderness, No mass Extremity Exam: normal inspection, normal range of motion Back Exam: normal inspection, normal range of motion, No CVA tenderness, No vertebral tenderness Pelvic Exam: deferred Rectal Exam: deferred Objective Data Vital Signs: Vital Signs - 24 hr Temp Pulse Resp BP BP Pulse Ox 12/05/24 09:53 99.0 F 12/05/24 07:28 100.3 F 111 H 16 109/64 92 L 12/05/24 04:20 101.2 F 110 H 20 116/68 98 12/05/24 00:06 92 L 12/04/24 23:46 100.2 F 112 H 19 115/62 97 12/04/24 23:00 111 H 21 103/70 94 L 12/04/24 22:30 112 H 21 111/68 94 L 12/04/24 21:30 125 H 24 99/62 94 L 12/04/24 21:00 109 H 21 109/67 95 12/04/24 20:30 109 H 20 98/64 96 12/04/24 20:00 120 H 20 111/74 92 L 12/04/24 19:48 100.1 F 129 H 22 126/90 92 L Pain Assessment - Last Documented Pain Intensity 6 Pain Scale Used 0-10 Pain Scale Intake and Output: Intake & Output 12/02/24 12/03/24 12/04/24 12/05/24 11:59 11:59 11:59 11:59 Output Total 1250 Balance -1250 Weight 89.2 kg Lab Results: Lab Results-Last 24 Hours 12/04/24 12/04/24 12/04/24 Range/Units 20:50 20:50 20:50 WBC 10.2 H (3.98-10.04) x10^3/uL RBC 4.24 (3.93-5.22) x10^6/uL Hgb 11.2 (11.2-15.7) g/dL Hct 35.7 (34.1-44.9) % MCV 84.2 (79.4-94.8) fL MCH 26.4 (25.6-32.2) pg MCHC 31.4 L (32.2-35.5) g/dL RDW 14.4 (11.7-14.4) % Plt Count 266 (182-369) x10^3/uL MPV 10.8 (9.4-12.3) fL Gran % 88.1 H (34.0-71.1) % Immature Gran % (Auto) 0.3 (0.001-0.429) % Nucleat RBC Rel Count 0.0 (0.00-0.2) % Eos # (Auto) 0 L (0.04-0.36) x10^3/uL Immature Gran # (Auto) 0.03 (0.001-0.031) x10^3u/L Absolute Lymphs (auto) 0.74 L (1.18-3.74) x10^3/uL Absolute Monos (auto) 0.42 (0.24-0.86) x10^3/uL Absolute Nucleated RBC 0.00 (0.00-0.012) x10^3u/L Lymphocytes % 7.2 L (19.3-51.7) % Monocytes % 4.1 L (4.7-12.5) % Eosinophils % 0.0 L (0.7-5.8) % Basophils % 0.3 (0.1-1.2) % Absolute Granulocytes 9.01 H (1.56-6.13) x10^3/uL Basophils # 0.03 (0.01-0.08) x10^3/uL pO2/FiO2 Ratio % VBG pH (7.32-7.42) VBG pCO2 at Pat Temp (42-55) mm/Hg VBG pO2 at Pat Temp (25-40) mm/Hg VBG HCO3 (22-28) meq/L VBG O2 Sat (Kevin) (95-100) VBG Base Excess (-2.0-2.0) VBG Hemoglobin VBG Carboxyhemoglobin (0.0-6.9) % T HGB POC Potassium (3.5-5.1) Sodium 136 (135-145) mmol/L Potassium 3.3 L (3.5-5.1) mmol/L Chloride 104 (98-107) mmol/L Carbon Dioxide 23 (22-30) mmol/L Anion Gap 11.7 (5-15) MEQ/L BUN 8 (7-17) mg/dL Creatinine 0.72 (0.52-1.04) mg/dL Estimated GFR 104.4 ML/MIN Glucose 112 H (74-106) mg/dL Lactic Acid (0.4-2.0) Calcium 8.6 (8.4-10.2) mg/dL Total Bilirubin 0.40 (0.2-1.3) mg/dL AST 87 H (14-36) U/L ALT 75 H (0-35) U/L Alkaline Phosphatase 190 H (38-126) U/L Serum Total Protein 7.6 (6.3-8.2) g/dL Albumin 4.1 (3.5-5.0) g/dL Urine Color (Yellow) Urine Appearance (Clear) Urine pH (4.6-8.0) Ur Specific [place] (1.005-1.030) Urine Protein (Negative) Urine Glucose (UA) (Negative) mg/dL Urine Ketones (Negative) Urine Blood (Negative) Urine Nitrite (Negative) Urine Bilirubin (Negative) Urine Urobilinogen (0.2) mg/dL Ur Leukocyte Esterase (Negative) U Hyaline Cast (Auto) (0-2) /LPF Urine Microscopic RBC (0-5) /HPF Urine Microscopic WBC (0-5) /HPF Ur Epithelial Cells (None Seen) /HPF Urine Bacteria (None Seen) /HPF Urine Culture Reflexed (NO) Monoscreen NEGATIVE (NEGATIVE) Influenza Type A Ag (NEGATIVE) Influenza Type B Ag (NEGATIVE) RSV (PCR) (NEGATIVE) SARS-CoV-2 (PCR) (NEGATIVE) Group A Strep Antibody (NEGATIVE) 12/04/24 12/04/24 12/04/24 Range/Units 20:55 20:55 21:01 WBC (3.98-10.04) x10^3/uL RBC (3.93-5.22) x10^6/uL Hgb (11.2-15.7) g/dL Hct (34.1-44.9) % MCV (79.4-94.8) fL MCH (25.6-32.2) pg MCHC (32.2-35.5) g/dL RDW (11.7-14.4) % Plt Count (182-369) x10^3/uL MPV (9.4-12.3) fL Gran % (34.0-71.1) % Immature Gran % (Auto) (0.001-0.429) % Nucleat RBC Rel Count (0.00-0.2) % Eos # (Auto) (0.04-0.36) x10^3/uL Immature Gran # (Auto) (0.001-0.031) x10^3u/L Absolute Lymphs (auto) (1.18-3.74) x10^3/uL Absolute Monos (auto) (0.24-0.86) x10^3/uL Absolute Nucleated RBC (0.00-0.012) x10^3u/L Lymphocytes % (19.3-51.7) % Monocytes % (4.7-12.5) % Eosinophils % (0.7-5.8) % Basophils % (0.1-1.2) % Absolute Granulocytes (1.56-6.13) x10^3/uL Basophils # (0.01-0.08) x10^3/uL pO2/FiO2 Ratio 21.0 % VBG pH 7.44 H (7.32-7.42) VBG pCO2 at Pat Temp 36 L (42-55) mm/Hg VBG pO2 at Pat Temp 33 (25-40) mm/Hg VBG HCO3 24.5 (22-28) meq/L VBG O2 Sat (Kevin) 58.8 L (95-100) VBG Base Excess 0.6 (-2.0-2.0) VBG Hemoglobin 11.9 VBG Carboxyhemoglobin 3.6 (0.0-6.9) % T HGB POC Potassium 3.2 L (3.5-5.1) Sodium (135-145) mmol/L Potassium (3.5-5.1) mmol/L Chloride (98-107) mmol/L Carbon Dioxide (22-30) mmol/L Anion Gap (5-15) MEQ/L BUN (7-17) mg/dL Creatinine (0.52-1.04) mg/dL Estimated GFR ML/MIN Glucose (74-106) mg/dL Lactic Acid 1.1 (0.4-2.0) Calcium (8.4-10.2) mg/dL Total Bilirubin (0.2-1.3) mg/dL AST (14-36) U/L ALT (0-35) U/L Alkaline Phosphatase (38-126) U/L Serum Total Protein (6.3-8.2) g/dL Albumin (3.5-5.0) g/dL Urine Color (Yellow) Urine Appearance (Clear) Urine pH (4.6-8.0) Ur Specific [place] (1.005-1.030) Urine Protein (Negative) Urine Glucose (UA) (Negative) mg/dL Urine Ketones (Negative) Urine Blood (Negative) Urine Nitrite (Negative) Urine Bilirubin (Negative) Urine Urobilinogen (0.2) mg/dL Ur Leukocyte Esterase (Negative) U Hyaline Cast (Auto) (0-2) /LPF Urine Microscopic RBC (0-5) /HPF Urine Microscopic WBC (0-5) /HPF Ur Epithelial Cells (None Seen) /HPF Urine Bacteria (None Seen) /HPF Urine Culture Reflexed (NO) Monoscreen (NEGATIVE) Influenza Type A Ag NEGATIVE (NEGATIVE) Influenza Type B Ag NEGATIVE (NEGATIVE) RSV (PCR) NEGATIVE (NEGATIVE) SARS-CoV-2 (PCR) NEGATIVE (NEGATIVE) Group A Strep Antibody NOT DETECTED (NEGATIVE) 12/04/24 12/05/24 12/05/24 Range/Units 22:01 04:26 04:26 WBC 7.9 (3.98-10.04) x10^3/uL RBC 3.74 L (3.93-5.22) x10^6/uL Hgb 9.8 L (11.2-15.7) g/dL Hct 31.3 L (34.1-44.9) % MCV 83.7 (79.4-94.8) fL MCH 26.2 (25.6-32.2) pg MCHC 31.3 L (32.2-35.5) g/dL RDW 14.8 H (11.7-14.4) % Plt Count 256 (182-369) x10^3/uL MPV 11.6 (9.4-12.3) fL Gran % (34.0-71.1) % Immature Gran % (Auto) (0.001-0.429) % Nucleat RBC Rel Count (0.00-0.2) % Eos # (Auto) (0.04-0.36) x10^3/uL Immature Gran # (Auto) (0.001-0.031) x10^3u/L Absolute Lymphs (auto) (1.18-3.74) x10^3/uL Absolute Monos (auto) (0.24-0.86) x10^3/uL Absolute Nucleated RBC (0.00-0.012) x10^3u/L Lymphocytes % (19.3-51.7) % Monocytes % (4.7-12.5) % Eosinophils % (0.7-5.8) % Basophils % (0.1-1.2) % Absolute Granulocytes (1.56-6.13) x10^3/uL Basophils # (0.01-0.08) x10^3/uL pO2/FiO2 Ratio % VBG pH (7.32-7.42) VBG pCO2 at Pat Temp (42-55) mm/Hg VBG pO2 at Pat Temp (25-40) mm/Hg VBG HCO3 (22-28) meq/L VBG O2 Sat (Kevin) (95-100) VBG Base Excess (-2.0-2.0) VBG Hemoglobin VBG Carboxyhemoglobin (0.0-6.9) % T HGB POC Potassium (3.5-5.1) Sodium 138 (135-145) mmol/L Potassium 3.4 L (3.5-5.1) mmol/L Chloride 109 H (98-107) mmol/L Carbon Dioxide 24 (22-30) mmol/L Anion Gap 9.1 (5-15) MEQ/L BUN 7 (7-17) mg/dL Creatinine 0.62 (0.52-1.04) mg/dL Estimated GFR 111.2 ML/MIN Glucose 111 H (74-106) mg/dL Lactic Acid (0.4-2.0) Calcium 8.1 L (8.4-10.2) mg/dL Total Bilirubin 0.30 (0.2-1.3) mg/dL AST 63 H (14-36) U/L ALT 64 H (0-35) U/L Alkaline Phosphatase 157 H (38-126) U/L Serum Total Protein 6.4 (6.3-8.2) g/dL Albumin 3.4 L (3.5-5.0) g/dL Urine Color Yellow (Yellow) Urine Appearance Clear (Clear) Urine pH 7.0 (4.6-8.0) Ur Specific [place] <=1.005 (1.005-1.030) Urine Protein Negative (Negative) Urine Glucose (UA) Negative (Negative) mg/dL Urine Ketones Negative (Negative) Urine Blood Negative (Negative) Urine Nitrite Negative (Negative) Urine Bilirubin Negative (Negative) Urine Urobilinogen 0.2 (0.2) mg/dL Ur Leukocyte Esterase Trace A (Negative) U Hyaline Cast (Auto) NONE SEEN (0-2) /LPF Urine Microscopic RBC 0-2 (0-5) /HPF Urine Microscopic WBC 0-2 (0-5) /HPF Ur Epithelial Cells None Seen (None Seen) /HPF Urine Bacteria None Seen (None Seen) /HPF Urine Culture Reflexed NO (NO) Monoscreen (NEGATIVE) Influenza Type A Ag (NEGATIVE) Influenza Type B Ag (NEGATIVE) RSV (PCR) (NEGATIVE) SARS-CoV-2 (PCR) (NEGATIVE) Group A Strep Antibody (NEGATIVE) Radiology Exams: Radiology Procedures Category Date Time Status ABDOMEN AND PELVIS W/0 CONTRAS [CT] Stat Exams 12/04/24 20:09 Completed CHEST WITHOUT CONTRAST [CT] Stat Exams 12/04/24 20:12 Completed Medications: Medications Generic Name Dose Route Start Last Admin Trade Name Freq PRN Reason Stop Dose Admin Acetaminophen 640 mg 12/05/24 08:17 12/05/24 08:40 Acetaminophen 160 Mg/5 Ml Bottle PO 01/04/25 08:16 640 mg QIDPRN PRN Administration PAIN, FEVER, HEADACHE Hydrocodone Bitart/Acetaminophen 1 tab 12/05/24 08:24 12/05/24 11:46 Hydrocodone/Apap 5/325 1 Tab Tablet PO 12/10/24 08:23 1 tab QID PRN PRN Administration PAIN Device 1 12/06/24 09:30 Therapuetic Drug Level Monitor Each IJ 12/06/24 09:31 1XONLY ONE Enoxaparin Sodium 80 mg 12/05/24 10:00 12/05/24 09:44 Enoxaparin Sodium 80 Mg/0.8 Ml Syringe SQ 01/04/25 09:59 80 mg BID FERCHO Administration Heparin Sodium (Beef Lung) 500 units 12/05/24 01:13 12/05/24 01:51 Heparin Lock Flush Pf 500 Units/5 Ml Syringe IV 01/04/25 01:12 500 units PRN PRN Administration IV PORT FLUSH Potassium Chloride 100 mls @ 50 mls/hr 12/05/24 08:30 12/05/24 11:09 Potassium Chloride 20 Meq In Water 100ml IV 12/05/24 16:29 50 mls/hr Q2H FERCHO Administration Piperacillin Sod/Tazobactam 100 mls @ 200 mls/hr 12/05/24 12:00 12/05/24 11:38 Sod 3.375 gm/ Sodium Chloride IV 12/08/24 11:59 200 mls/hr Q6HT FERCHO Administration Promethazine HCl 12.5 mg/ 100.5 mls @ 201 mls/hr 12/05/24 08:23 Sodium Chloride IV 01/04/25 08:22 Q4H PRN PRN UNCONTROLLED NAUSEA Sodium Chloride 500 mls @ 50 mls/hr 12/05/24 08:30 12/05/24 08:40 Sodium Chloride 0.9% 500 Ml IV 01/04/25 08:29 50 mls/hr .Q10H FERCHO Administration Multivitamins/Minerals 10 ml/ 1,010 mls @ 100 mls/hr 12/05/24 08:33 Lactated Ringer's IV 01/04/25 08:32 .Q10H6M PRN Vancomycin HCl 1 gm in 200 mls @ 133.333 mls/hr 12/05/24 22:00 Vancomycin 1 Gram/200 Ml Bag IV 01/04/25 21:59 Q12HT FERCHO Methadone HCl 2.5 mg 12/05/24 10:00 12/05/24 09:42 Methadone Hcl 10 Mg Tab PO 12/10/24 09:59 2.5 mg TID FERCHO Administration Metoclopramide HCl 10 mg 12/05/24 12:00 12/05/24 11:38 Metoclopramide Hcl 10 Mg/2 Ml Vial IV 01/04/25 11:59 10 mg Q6HT FERCHO Administration Discontinued Medications Generic Name Dose Route Start Last Admin Trade Name Sulaiman PRN Reason Stop Dose Admin Acetaminophen 640 mg 12/04/24 22:01 12/04/24 22:47 Acetaminophen 160 Mg/5 Ml Bottle PO 12/04/24 22:02 640 mg STAT ONE Administration Acetaminophen Confirm 12/04/24 22:46 Acetaminophen 160 Mg/5 Ml Bottle Administered 12/04/24 22:47 Dose 160 mg .ROUTE .STK-MED ONE Hydromorphone HCl 1 mg 12/05/24 04:53 12/05/24 04:59 Hydromorphone 1 Mg/1ml Inj IV 12/05/24 04:54 1 mg STAT ONE Administration Sodium Chloride 1,000 mls @ 999 mls/hr 12/04/24 20:09 12/04/24 21:37 Sodium Chloride 0.9% 1000 Ml IV 12/04/24 21:09 Infused .Q1H1M STA Infusion Piperacillin Sod/Tazobactam 100 mls @ 200 mls/hr 12/04/24 20:10 12/04/24 21:53 Sod 3.375 gm/ Sodium Chloride IV 12/04/24 20:39 Infused STAT STA Infusion Vancomycin HCl 1 gm in 200 mls @ 125 mls/hr 12/04/24 20:10 12/04/24 23:29 Vancomycin 1 Gram/200 Ml Bag IV 12/04/24 21:45 Infused STAT ONE Infusion Promethazine HCl 25 mg/ Sodium 101 mls @ 200 mls/hr 12/04/24 20:11 12/04/24 21:08 Chloride IV 12/04/24 20:41 Infused STAT ONE Infusion Sodium Chloride Confirm 12/04/24 20:29 Sodium Chloride 0.9% Administered 12/04/24 20:30 Dose 100 mls @ ud .ROUTE .STK-MED ONE Sodium Chloride Confirm 12/04/24 20:29 Sodium Chloride 0.9% 1000 Ml Administered 12/04/24 20:30 Dose 1,000 mls @ ud .ROUTE .STK-MED ONE Sodium Chloride Confirm 12/04/24 21:13 Sodium Chloride 0.9% Administered 12/04/24 21:14 Dose 100 mls @ ud .ROUTE .STK-MED ONE Sodium Chloride 1,000 mls @ 999 mls/hr 12/04/24 21:59 12/04/24 23:40 Sodium Chloride 0.9% 1000 Ml IV 12/04/24 22:59 0 mls/hr .Q1H1M STA Infusion Vancomycin HCl Confirm 12/04/24 21:56 Vancomycin 1 Gram/200 Ml Bag Administered 12/04/24 21:57 Dose 1 gm in 200 mls @ ud IV .STK-MED ONE Sodium Chloride Confirm 12/04/24 23:03 Sodium Chloride 0.9% 1000 Ml Administered 12/04/24 23:04 Dose 1,000 mls @ ud .ROUTE .STK-MED ONE Promethazine HCl 12.5 mg/ 100.5 mls @ 201 mls/hr 12/05/24 04:33 12/05/24 04:44 Sodium Chloride IV 12/05/24 05:02 201 mls/hr STAT ONE Administration Sodium Chloride Confirm 12/05/24 04:37 Sodium Chloride 0.9% Administered 12/05/24 04:38 Dose 100 mls @ ud .ROUTE .STK-MED ONE Vancomycin HCl 1.25 gm in 250 mls @ 166.667 mls/hr 12/05/24 10:00 12/05/24 09:45 Vancomycin 1.25 Gm/250 Ml Bag IV 12/05/24 11:29 166.667 mls/hr 1000 FERCHO Administration Morphine Sulfate 1 mg 12/05/24 01:12 12/05/24 01:52 Morphine Sulfate 2 Mg/Ml Inj IV 12/05/24 01:13 Not Given STAT ONE Morphine Sulfate Confirm 12/05/24 01:44 Morphine Sulfate 4 Mg/Ml Injection Administered 12/05/24 01:45 Dose 4 mg .ROUTE .STK-MED ONE Morphine Sulfate 1 mg 12/05/24 01:49 12/05/24 01:52 Morphine Sulfate 4 Mg/Ml Injection IV 12/05/24 01:50 1 mg STAT ONE Administration Non-Formulary Medication 1 bag 12/05/24 08:15 Non-Formulary Drug [Non-Formulary Item] IV 01/04/25 08:14 2XW FERCHO Non-Formulary Medication 50 mg 12/05/24 08:15 Ubrogepant [Ubrelvy] PO DAILY PRN HEADACHE Non-Formulary Medication 1 each 12/05/24 08:23 12/05/24 08:26 Pharmacy Dose Request: Vancomycin 1 Each IV 12/05/24 08:24 1 each STAT STA Administration Pantoprazole Sodium 20 mg 12/05/24 10:00 Pantoprazole 20 Mg Tab PO 01/04/25 09:59 BID FERCHO Piperacillin Sod/Tazobactam Sod Confirm 12/04/24 21:12 Piperacillin/Tazobactam Sodium 3.375 Gm Vial Administered 12/04/24 21:13 Dose 3.375 gm IV .STK-MED ONE Promethazine HCl Confirm 12/04/24 20:29 Promethazine Hcl 25 Mg/Ml Vial Administered 12/04/24 20:30 Dose 25 mg .ROUTE .STK-MED ONE Promethazine HCl Confirm 12/05/24 04:37 Promethazine Hcl 25 Mg/Ml Vial Administered 12/05/24 04:38 Dose 25 mg .ROUTE .STK-MED ONE Sumatriptan Succinate 6 mg 12/05/24 08:30 12/05/24 08:48 Sumatriptan Succinate 6 Mg/0.5 Ml Vial SQ 12/05/24 08:31 6 mg STAT STA Administration Multi-Disciplinary Progress Notes: Multi-Disciplinary Progress Notes 12/05/24 09:59 Case Management Note by Cee Saeed PATIENT HAS A [facility]. THEY WERE NOTIFIED SHE IS HERE IN OBS. THEY WILL NEED NOTIFIED AT TIME OF DC AT [phone]. THEY WILL NEED FAXED THE DC INSTRUCTIONS, DC MED LIST, DC SUMMARY AND ANY INFORMATION ON NEW CENTRAL LINE (*IF ONE IS PLACED) TO [phone] Initialized on 12/05/24 09:59 - END OF NOTE Assessment/Plan (1) Sepsis Current Visit: Yes Status: Acute Assessment & Plan: - Lactic acid 1.1 on admission - 2- 1 liter fluid boluses gave on admission - IVF NS @ 50 ml/hr - CBC, CMP reviewed - BC x2 pending - On admission Temp > 100.4 - HR > 90 - Suspected central line infection - Continued temp overnight - tylenol PRN (2) Central line infection Current Visit: Yes Status: Acute Assessment & Plan: - Assumed - Vancomycin and zosyn IV - CBC, CMP reviewed - BCx 2 pending - GS consult - WBC 7.9- ok Code(s): T80.219A - UNSP INFECTION DUE TO CENTRAL VENOUS CATHETER, INIT ENCNTR (3) Hypokalemia Current Visit: Yes Status: Acute Assessment & Plan: - K+ 3.4-replaced IV- trend - Tele Code(s): E87.6 - HYPOKALEMIA (4) Migraine Current Visit: Yes Status: Acute Assessment & Plan: - Imitrex SQ x1 - Tylenol PRN - to obtain home meds to use Code(s): G43.909 - MIGRAINE, UNSP, NOT INTRACTABLE, WITHOUT STATUS MIGRAINOSUS (5) Fever Current Visit: Yes Status: Acute Assessment & Plan: - 2:2 Central line infection - Temp up to 101 last night - Tylenol PRN Code(s): R50.9 - FEVER, UNSPECIFIED (6) Transaminitis Current Visit: Yes Status: Acute Assessment & Plan: - AST 63, ALT 64- improving- trend Code(s): R74.01 - ELEVATION OF LEVELS OF LIVER TRANSAMINASE LEVELS (7) Obesity (BMI 30.0-34.9) Current Visit: Yes Status: Chronic Assessment & Plan: - Advised diet and exercise control (8) Intestinal malrotation Current Visit: Yes Status: Chronic Assessment & Plan: - Chronic concern - Continue TPN Thursday and Thursday per pt request. VTE: Hold lovenox for possible surgical procedure- SCD's PPI: Protonix IV Next of KIN: Code status: Full D/C plan: 1-2 days Plan of care time > 40 minutes Code(s): Q43.3 - CONGENITAL MALFORMATIONS OF INTESTINAL FIXATION
[2024-12-05] MEDS: PROTONIX 40 MG IV IV SCH (14:06)
[2024-12-05] MEDS: Phenergan 25 MG INJ*** 12.5 MG in Sodium Chloride 0.9% 100 ML IV PRN (14:16)
[2024-12-05 15:56] VITALS: BP 113/55; PULSE 89; TEMP 98; O2SAT 97
--- NOTE | 2024-12-05 16:13 | PCM.DS ---
Discharge Summary Date of Admission: 12/04/24 23:39 Date of Discharge: 12/05/24 Admitting Physician: KEITH VENTURA MD Consults: Consults on Case 12/05/24 02:19 Consult Surgery ROUTINE Primary Care Provider: CALVIN DOBBINS DO Allergies Allergies azithromycin Allergy (Verified 12/04/24 19:45) Muscle Aches Influenza Virus Vaccines Allergy (Verified 12/04/24 19:56) Vomiting naproxen [From Naprosyn] Allergy (Verified 12/04/24 19:45) tramadol Adverse Reaction (Verified 12/04/24 19:45) Nausea and Vomiting Hospital Summary - Hospital Course Hospital Course: The patient is a 44-year-old female with a past medical history significant for migraines and intestinal malrotation requiring total parenteral nutrition (TPN) and IV fluids/medications via a central chest line, which was placed in early July 2024. She also has a history of two superficial blood clots in the right legone above the knee on the inner aspect and one behind the knee. The patient was admitted on 12/04/24 for evaluation of high-grade fever and severe chills. She reported awakening during the night with intense cold chills and a fever that reached 103.9F, prompting her to bring her to the hospital. Given her central line and the absence of other infection sources, concern was raised for a possible central line infection. She was started on broad-spectrum IV antibiotics, including vancomycin and Zosyn, and Dr. Lombardi was consulted for possible central line removal and replacement. The patient met sepsis criteria on admission. On 12/05/24, she remained in bed and continued to feel unwell. She was kept NPO in preparation for potential line removal and replacement. Her WBC count remained stable at 7.9, and her potassium was slightly low at 3.4, which was replaced intravenously. She received subcutaneous Imitrex for a migraine. Blood cultures 2 are pending. The patient remains on telemetry with a persistent low- grade fever, currently 100.3F, with a peak overnight of 101F. Liver enzymes have shown improvement, with AST at 63 and ALT at 64. Per general surgery, the patient will receive Lovenox this evening and hold it in the morning prior to the procedure. The patient requested to delay resuming TPN until tomorrow and prefers to restart on her regular Jane and Thursday schedule. IV antibiotics will be continued for presumed central line infection. Due to the need for specialized central line management and infectious disease evaluation, the patient will be transferred to [facility] per surgeon request. [facility], and transfer will occur when a bed becomes available. - Vitals & Intake/Output Vital Signs: Vital Signs Temperature 98 F 12/05/24 15:54 Pulse Rate 89 12/05/24 15:54 Respiratory Rate 16 12/05/24 15:54 Blood Pressure 113/55 12/05/24 15:54 O2 Sat by Pulse Oximetry 97 12/05/24 15:54 Intake & Output: Intake & Output 12/03/24 12/04/24 12/05/24 12/06/24 11:59 11:59 11:59 11:59 Intake Total 480 Output Total 1250 Balance -1250 480 Weight 89.2 kg - Lab Result Diagrams: 12/05/24 04:26 12/05/24 12:03 Lab Results-Last 24 Hrs: Lab Results-Last 24 Hours 12/04/24 12/04/24 12/04/24 Range/Units 20:50 20:50 20:50 WBC 10.2 H (3.98-10.04) x10^3/uL RBC 4.24 (3.93-5.22) x10^6/uL Hgb 11.2 (11.2-15.7) g/dL Hct 35.7 (34.1-44.9) % MCV 84.2 (79.4-94.8) fL MCH 26.4 (25.6-32.2) pg MCHC 31.4 L (32.2-35.5) g/dL RDW 14.4 (11.7-14.4) % Plt Count 266 (182-369) x10^3/uL MPV 10.8 (9.4-12.3) fL Gran % 88.1 H (34.0-71.1) % Immature Gran % (Auto) 0.3 (0.001-0.429) % Nucleat RBC Rel Count 0.0 (0.00-0.2) % Eos # (Auto) 0 L (0.04-0.36) x10^3/uL Immature Gran # (Auto) 0.03 (0.001-0.031) x10^3u/L Absolute Lymphs (auto) 0.74 L (1.18-3.74) x10^3/uL Absolute Monos (auto) 0.42 (0.24-0.86) x10^3/uL Absolute Nucleated RBC 0.00 (0.00-0.012) x10^3u/L Lymphocytes % 7.2 L (19.3-51.7) % Monocytes % 4.1 L (4.7-12.5) % Eosinophils % 0.0 L (0.7-5.8) % Basophils % 0.3 (0.1-1.2) % Absolute Granulocytes 9.01 H (1.56-6.13) x10^3/uL Basophils # 0.03 (0.01-0.08) x10^3/uL pO2/FiO2 Ratio % VBG pH (7.32-7.42) VBG pCO2 at Pat Temp (42-55) mm/Hg VBG pO2 at Pat Temp (25-40) mm/Hg VBG HCO3 (22-28) meq/L VBG O2 Sat (Kevin) (95-100) VBG Base Excess (-2.0-2.0) VBG Hemoglobin VBG Carboxyhemoglobin (0.0-6.9) % T HGB POC Potassium (3.5-5.1) Sodium 136 (135-145) mmol/L Potassium 3.3 L (3.5-5.1) mmol/L Chloride 104 (98-107) mmol/L Carbon Dioxide 23 (22-30) mmol/L Anion Gap 11.7 (5-15) MEQ/L BUN 8 (7-17) mg/dL Creatinine 0.72 (0.52-1.04) mg/dL Estimated GFR 104.4 ML/MIN Glucose 112 H (74-106) mg/dL Hemoglobin A1c (4.5-6.0) % Lactic Acid (0.4-2.0) Calcium 8.6 (8.4-10.2) mg/dL Magnesium (1.6-2.3) mg/dL Total Bilirubin 0.40 (0.2-1.3) mg/dL AST 87 H (14-36) U/L ALT 75 H (0-35) U/L Alkaline Phosphatase 190 H (38-126) U/L Serum Total Protein 7.6 (6.3-8.2) g/dL Albumin 4.1 (3.5-5.0) g/dL Urine Color (Yellow) Urine Appearance (Clear) Urine pH (4.6-8.0) Ur Specific [place] (1.005-1.030) Urine Protein (Negative) Urine Glucose (UA) (Negative) mg/dL Urine Ketones (Negative) Urine Blood (Negative) Urine Nitrite (Negative) Urine Bilirubin (Negative) Urine Urobilinogen (0.2) mg/dL Ur Leukocyte Esterase (Negative) U Hyaline Cast (Auto) (0-2) /LPF Urine Microscopic RBC (0-5) /HPF Urine Microscopic WBC (0-5) /HPF Ur Epithelial Cells (None Seen) /HPF Urine Bacteria (None Seen) /HPF Urine Culture Reflexed (NO) Monoscreen NEGATIVE (NEGATIVE) Influenza Type A Ag (NEGATIVE) Influenza Type B Ag (NEGATIVE) RSV (PCR) (NEGATIVE) SARS-CoV-2 (PCR) (NEGATIVE) Group A Strep Antibody (NEGATIVE) 12/04/24 12/04/24 12/04/24 Range/Units 20:55 20:55 21:01 WBC (3.98-10.04) x10^3/uL RBC (3.93-5.22) x10^6/uL Hgb (11.2-15.7) g/dL Hct (34.1-44.9) % MCV (79.4-94.8) fL MCH (25.6-32.2) pg MCHC (32.2-35.5) g/dL RDW (11.7-14.4) % Plt Count (182-369) x10^3/uL MPV (9.4-12.3) fL Gran % (34.0-71.1) % Immature Gran % (Auto) (0.001-0.429) % Nucleat RBC Rel Count (0.00-0.2) % Eos # (Auto) (0.04-0.36) x10^3/uL Immature Gran # (Auto) (0.001-0.031) x10^3u/L Absolute Lymphs (auto) (1.18-3.74) x10^3/uL Absolute Monos (auto) (0.24-0.86) x10^3/uL Absolute Nucleated RBC (0.00-0.012) x10^3u/L Lymphocytes % (19.3-51.7) % Monocytes % (4.7-12.5) % Eosinophils % (0.7-5.8) % Basophils % (0.1-1.2) % Absolute Granulocytes (1.56-6.13) x10^3/uL Basophils # (0.01-0.08) x10^3/uL pO2/FiO2 Ratio 21.0 % VBG pH 7.44 H (7.32-7.42) VBG pCO2 at Pat Temp 36 L (42-55) mm/Hg VBG pO2 at Pat Temp 33 (25-40) mm/Hg VBG HCO3 24.5 (22-28) meq/L VBG O2 Sat (Kevin) 58.8 L (95-100) VBG Base Excess 0.6 (-2.0-2.0) VBG Hemoglobin 11.9 VBG Carboxyhemoglobin 3.6 (0.0-6.9) % T HGB POC Potassium 3.2 L (3.5-5.1) Sodium (135-145) mmol/L Potassium (3.5-5.1) mmol/L Chloride (98-107) mmol/L Carbon Dioxide (22-30) mmol/L Anion Gap (5-15) MEQ/L BUN (7-17) mg/dL Creatinine (0.52-1.04) mg/dL Estimated GFR ML/MIN Glucose (74-106) mg/dL Hemoglobin A1c (4.5-6.0) % Lactic Acid 1.1 (0.4-2.0) Calcium (8.4-10.2) mg/dL Magnesium (1.6-2.3) mg/dL Total Bilirubin (0.2-1.3) mg/dL AST (14-36) U/L ALT (0-35) U/L Alkaline Phosphatase (38-126) U/L Serum Total Protein (6.3-8.2) g/dL Albumin (3.5-5.0) g/dL Urine Color (Yellow) Urine Appearance (Clear) Urine pH (4.6-8.0) Ur Specific [place] (1.005-1.030) Urine Protein (Negative) Urine Glucose (UA) (Negative) mg/dL Urine Ketones (Negative) Urine Blood (Negative) Urine Nitrite (Negative) Urine Bilirubin (Negative) Urine Urobilinogen (0.2) mg/dL Ur Leukocyte Esterase (Negative) U Hyaline Cast (Auto) (0-2) /LPF Urine Microscopic RBC (0-5) /HPF Urine Microscopic WBC (0-5) /HPF Ur Epithelial Cells (None Seen) /HPF Urine Bacteria (None Seen) /HPF Urine Culture Reflexed (NO) Monoscreen (NEGATIVE) Influenza Type A Ag NEGATIVE (NEGATIVE) Influenza Type B Ag NEGATIVE (NEGATIVE) RSV (PCR) NEGATIVE (NEGATIVE) SARS-CoV-2 (PCR) NEGATIVE (NEGATIVE) Group A Strep Antibody NOT DETECTED (NEGATIVE) 12/04/24 12/05/24 12/05/24 Range/Units 22:01 04:26 04:26 WBC 7.9 (3.98-10.04) x10^3/uL RBC 3.74 L (3.93-5.22) x10^6/uL Hgb 9.8 L (11.2-15.7) g/dL Hct 31.3 L (34.1-44.9) % MCV 83.7 (79.4-94.8) fL MCH 26.2 (25.6-32.2) pg MCHC 31.3 L (32.2-35.5) g/dL RDW 14.8 H (11.7-14.4) % Plt Count 256 (182-369) x10^3/uL MPV 11.6 (9.4-12.3) fL Gran % (34.0-71.1) % Immature Gran % (Auto) (0.001-0.429) % Nucleat RBC Rel Count (0.00-0.2) % Eos # (Auto) (0.04-0.36) x10^3/uL Immature Gran # (Auto) (0.001-0.031) x10^3u/L Absolute Lymphs (auto) (1.18-3.74) x10^3/uL Absolute Monos (auto) (0.24-0.86) x10^3/uL Absolute Nucleated RBC (0.00-0.012) x10^3u/L Lymphocytes % (19.3-51.7) % Monocytes % (4.7-12.5) % Eosinophils % (0.7-5.8) % Basophils % (0.1-1.2) % Absolute Granulocytes (1.56-6.13) x10^3/uL Basophils # (0.01-0.08) x10^3/uL pO2/FiO2 Ratio % VBG pH (7.32-7.42) VBG pCO2 at Pat Temp (42-55) mm/Hg VBG pO2 at Pat Temp (25-40) mm/Hg VBG HCO3 (22-28) meq/L VBG O2 Sat (Kevin) (95-100) VBG Base Excess (-2.0-2.0) VBG Hemoglobin VBG Carboxyhemoglobin (0.0-6.9) % T HGB POC Potassium (3.5-5.1) Sodium 138 (135-145) mmol/L Potassium 3.4 L (3.5-5.1) mmol/L Chloride 109 H (98-107) mmol/L Carbon Dioxide 24 (22-30) mmol/L Anion Gap 9.1 (5-15) MEQ/L BUN 7 (7-17) mg/dL Creatinine 0.62 (0.52-1.04) mg/dL Estimated GFR 111.2 ML/MIN Glucose 111 H (74-106) mg/dL Hemoglobin A1c (4.5-6.0) % Lactic Acid (0.4-2.0) Calcium 8.1 L (8.4-10.2) mg/dL Magnesium (1.6-2.3) mg/dL Total Bilirubin 0.30 (0.2-1.3) mg/dL AST 63 H (14-36) U/L ALT 64 H (0-35) U/L Alkaline Phosphatase 157 H (38-126) U/L Serum Total Protein 6.4 (6.3-8.2) g/dL Albumin 3.4 L (3.5-5.0) g/dL Urine Color Yellow (Yellow) Urine Appearance Clear (Clear) Urine pH 7.0 (4.6-8.0) Ur Specific [place] <=1.005 (1.005-1.030) Urine Protein Negative (Negative) Urine Glucose (UA) Negative (Negative) mg/dL Urine Ketones Negative (Negative) Urine Blood Negative (Negative) Urine Nitrite Negative (Negative) Urine Bilirubin Negative (Negative) Urine Urobilinogen 0.2 (0.2) mg/dL Ur Leukocyte Esterase Trace A (Negative) U Hyaline Cast (Auto) NONE SEEN (0-2) /LPF Urine Microscopic RBC 0-2 (0-5) /HPF Urine Microscopic WBC 0-2 (0-5) /HPF Ur Epithelial Cells None Seen (None Seen) /HPF Urine Bacteria None Seen (None Seen) /HPF Urine Culture Reflexed NO (NO) Monoscreen (NEGATIVE) Influenza Type A Ag (NEGATIVE) Influenza Type B Ag (NEGATIVE) RSV (PCR) (NEGATIVE) SARS-CoV-2 (PCR) (NEGATIVE) Group A Strep Antibody (NEGATIVE) 12/05/24 12/05/24 12/05/24 Range/Units 04:26 05:00 12:03 WBC (3.98-10.04) x10^3/uL RBC (3.93-5.22) x10^6/uL Hgb (11.2-15.7) g/dL Hct (34.1-44.9) % MCV (79.4-94.8) fL MCH (25.6-32.2) pg MCHC (32.2-35.5) g/dL RDW (11.7-14.4) % Plt Count (182-369) x10^3/uL MPV (9.4-12.3) fL Gran % (34.0-71.1) % Immature Gran % (Auto) (0.001-0.429) % Nucleat RBC Rel Count (0.00-0.2) % Eos # (Auto) (0.04-0.36) x10^3/uL Immature Gran # (Auto) (0.001-0.031) x10^3u/L Absolute Lymphs (auto) (1.18-3.74) x10^3/uL Absolute Monos (auto) (0.24-0.86) x10^3/uL Absolute Nucleated RBC (0.00-0.012) x10^3u/L Lymphocytes % (19.3-51.7) % Monocytes % (4.7-12.5) % Eosinophils % (0.7-5.8) % Basophils % (0.1-1.2) % Absolute Granulocytes (1.56-6.13) x10^3/uL Basophils # (0.01-0.08) x10^3/uL pO2/FiO2 Ratio % VBG pH (7.32-7.42) VBG pCO2 at Pat Temp (42-55) mm/Hg VBG pO2 at Pat Temp (25-40) mm/Hg VBG HCO3 (22-28) meq/L VBG O2 Sat (Kevin) (95-100) VBG Base Excess (-2.0-2.0) VBG Hemoglobin VBG Carboxyhemoglobin (0.0-6.9) % T HGB POC Potassium (3.5-5.1) Sodium (135-145) mmol/L Potassium 3.6 (3.5-5.1) mmol/L Chloride (98-107) mmol/L Carbon Dioxide (22-30) mmol/L Anion Gap (5-15) MEQ/L BUN (7-17) mg/dL Creatinine (0.52-1.04) mg/dL Estimated GFR ML/MIN Glucose (74-106) mg/dL Hemoglobin A1c 5.54 (4.5-6.0) % Lactic Acid (0.4-2.0) Calcium (8.4-10.2) mg/dL Magnesium (1.6-2.3) mg/dL Total Bilirubin (0.2-1.3) mg/dL AST (14-36) U/L ALT (0-35) U/L Alkaline Phosphatase (38-126) U/L Serum Total Protein (6.3-8.2) g/dL Albumin (3.5-5.0) g/dL Urine Color (Yellow) Urine Appearance (Clear) Urine pH (4.6-8.0) Ur Specific [place] (1.005-1.030) Urine Protein (Negative) Urine Glucose (UA) (Negative) mg/dL Urine Ketones (Negative) Urine Blood (Negative) Urine Nitrite (Negative) Urine Bilirubin (Negative) Urine Urobilinogen (0.2) mg/dL Ur Leukocyte Esterase (Negative) U Hyaline Cast (Auto) (0-2) /LPF Urine Microscopic RBC (0-5) /HPF Urine Microscopic WBC (0-5) /HPF Ur Epithelial Cells (None Seen) /HPF Urine Bacteria (None Seen) /HPF Urine Culture Reflexed (NO) Monoscreen (NEGATIVE) Influenza Type A Ag (NEGATIVE) Influenza Type B Ag (NEGATIVE) RSV (PCR) (NEGATIVE) SARS-CoV-2 (PCR) (NEGATIVE) Group A Strep Antibody (NEGATIVE) - Radiology Exams Ordered Rad Exams-Entire Visit: Radiology Procedures Category Date Time Status ABDOMEN AND PELVIS W/0 CONTRAS [CT] Stat Exams 12/04/24 20:09 Completed CHEST WITHOUT CONTRAST [CT] Stat Exams 12/04/24 20:12 Completed Discharge Exam General Appearance: no apparent distress, alert, obese Neurologic Exam: alert, oriented x 3, cooperative, normal mood/affect, nml cerebellar function, sensation nml, No motor deficits Eye Exam: PERRL, EOMI, eyes nml inspection Ears, Nose, Throat Exam: normal ENT inspection, pharynx normal, moist mucous membranes Neck Exam: normal inspection, non-tender, supple, full range of motion Respiratory Exam: normal breath sounds, lungs clear, No respiratory distress Cardiovascular Exam: regular rate/rhythm, normal heart sounds Gastrointestinal/Abdomen Exam: soft, No tenderness, No mass Pelvic Exam: deferred Rectal Exam: deferred Back Exam: normal inspection, normal range of motion, No CVA tenderness, No vertebral tenderness Extremity Exam: normal inspection, normal range of motion Skin Exam: normal color, warm, dry Final Diagnosis/Problem List - Final Discharge Diagnosis/Problem (1) Sepsis Current Visit: Yes Status: Acute (2) Central line infection Current Visit: Yes Status: Acute Code(s): T80.219A - UNSP INFECTION DUE TO CENTRAL VENOUS CATHETER, INIT ENCNTR (3) Hypokalemia Current Visit: Yes Status: Acute Code(s): E87.6 - HYPOKALEMIA (4) Migraine Current Visit: Yes Status: Acute Code(s): G43.909 - MIGRAINE, UNSP, NOT INTRACTABLE, WITHOUT STATUS MIGRAINOSUS (5) Fever Current Visit: Yes Status: Acute Code(s): R50.9 - FEVER, UNSPECIFIED (6) Transaminitis Current Visit: Yes Status: Acute Code(s): R74.01 - ELEVATION OF LEVELS OF LIVER TRANSAMINASE LEVELS (7) Obesity (BMI 30.0-34.9) Current Visit: Yes Status: Chronic (8) Intestinal malrotation Current Visit: Yes Status: Chronic Assessment & Plan: (1) Sepsis Current Visit: Yes Status: Acute Assessment & Plan: - Lactic acid 1.1 on admission - 2- 1 liter fluid boluses gave on admission - IVF NS @ 50 ml/hr - CBC, CMP reviewed - BC x2 pending - On admission Temp > 100.4 - HR > 90 - Suspected central line infection - Continued temp overnight - tylenol PRN (2) Central line infection Current Visit: Yes Status: Acute Assessment & Plan: - Assumed - Vancomycin and zosyn IV - CBC, CMP reviewed - BCx 2 pending - GS consult- tx to [place] as we do not have the supplies here to change this out. Pt will also need ID at [place]. - WBC 7.9- ok Code(s): T80.219A - UNSP INFECTION DUE TO CENTRAL VENOUS CATHETER, INIT ENCNTR (3) Hypokalemia Current Visit: Yes Status: Acute Assessment & Plan: - K+ 3.4-replaced IV- trend - Tele Code(s): E87.6 - HYPOKALEMIA (4) Migraine Current Visit: Yes Status: Acute Assessment & Plan: - Imitrex SQ x1 - Tylenol PRN - to obtain home meds to use Code(s): G43.909 - MIGRAINE, UNSP, NOT INTRACTABLE, WITHOUT STATUS MIGRAINOSUS (5) Fever Current Visit: Yes Status: Acute Assessment & Plan: - 2:2 Central line infection - Temp up to 101 last night - Tylenol PRN Code(s): R50.9 - FEVER, UNSPECIFIED (6) Transaminitis Current Visit: Yes Status: Acute Assessment & Plan: - AST 63, ALT 64- improving- trend Code(s): R74.01 - ELEVATION OF LEVELS OF LIVER TRANSAMINASE LEVELS (7) Obesity (BMI 30.0-34.9) Current Visit: Yes Status: Chronic Assessment & Plan: - Advised diet and exercise control (8) Intestinal malrotation Current Visit: Yes Status: Chronic Assessment & Plan: - Chronic concern - Continue TPN Thursday and Thursday per pt request. Code(s): Q43.3 - CONGENITAL MALFORMATIONS OF INTESTINAL FIXATION (9) Hx of blood clots Current Visit: Yes Status: Chronic Assessment & Plan: - On therapeutic lovenox - Continue to give this evening per GS and hold in the AM for procedure. D/C plan of care time > 40 minutes Code(s): Z86.718 - PERSONAL HISTORY OF OTHER VENOUS THROMBOSIS AND EMBOLISM - Discharge Discharge Date: 12/05/24 Disposition: DC TO [facility] Condition: Fair Prescriptions: New Piperacillin/Tazobactam 3.375G [Piperacillin/Tazobactam] 3.375 gm IV Q6HT Vancomycin/Water For Inj (Peg) [Vancomycin 1 Gram/200 ml Bag] 1 gm IV Q12HT iv piggy Continue Pantoprazole 20 mg [Protonix 20MG Tablet] 20 mg IV BID Ubrogepant [Ubrelvy] 50 mg PO DAILY PRN PRN Reason: Headache Hydrocodone/Acetaminophen [Hydrocodone-Acetamn 7.5-325/15 ] 10 ml L QID PRN PRN Reason: Pain Promethazine HCl 25 mg [Phenergan 25 mg] 25 mg RC QID Methadone HCl 2.5 mg L TID Enoxaparin Sodium [Lovenox] 80 mg SQ BID Metoclopramide HCl 10 mg/2 ml* [Reglan 10 MG/2 ML] 10 mg IJ Q6H Non-Formulary Drug [Non-Formulary Item] 1,000 ml IV UD Non-Formulary Drug [Non-Formulary Item] 1 bag IV 2XW Follow up with: CALVIN DOBBINS DO [Primary Care Provider, [facility]]
[2024-12-05] MEDS ORDERED: VANCOMYCIN 1 GRAM/200 ML BAG 1 GM/200 ML PIGGYBACK IV SCH (22:00)
[2024-12-06] MEDS ORDERED: TROUGH DRUG LEVELS IJ ONE (09:30)
--- NOTE | 2024-12-06 11:09 | CONS ---
HISTORY: I was asked to see this patient for Dr. Pilo Lombardi who was consulted. A 44-year-old, apparently was admitted yesterday, had a fever of 103.9 at home, not much response with Tylenol or ibuprofen. She came in. She has a long history of multiple medical problems, is on IV TPN, IV medications at home. Dr. Pilo Lombardi put a dual-lumen Groshong on her back in June. PAST MEDICAL HISTORY: History of migraines, depression, history of endometriosis in the past. PAST SURGICAL HISTORY: She had brain surgery for Chiari malformation and intestinal malrotation surgery a couple times in the past. She is on long-term IV hydration for IV nutrition, TPN. She has had x3 in the past. She has had a PICC line in the past and she had dual-lumen Groshong by Dr. Pilo Lombardi in the past. She had hysterectomy and tubal in the past as well and cholecystectomy and appendectomy. HOME MEDICATIONS: Pantoprazole, Ubrelvy, hydrocodone 7.5. She is on Lovenox 80 b.i.d., methadone, metoclopramide, promethazine. ALLERGIES: Azithromycin, tramadol, Naprosyn, and flu vaccine apparently. FAMILY HISTORY: Negative in regard to this problem. REVIEW OF SYSTEMS: Patient denies any current chest pain. No chest pain. No shortness of breath. Other systems negative other than noted above and per admission assessment. Twelve systems reviewed and negative or noncontributory as above and per admission assessment. PHYSICAL EXAMINATION: GENERAL: A chronically ill female. VITAL SIGNS: Her temperature here was 97 earlier. She had a temperature of 100 early this morning. She, unfortunately, was just given 80 of Lovenox. Waiting on surgical consult. Blood pressure 116/68, 98% on room air, respiratory rate 20. HEENT: Sclerae nonicteric. NECK: No JVD. CHEST: She has peripheral IV in. She has Groshong coming out of the medial aspect of her chest/breast area. It also appears to be closer up to the clavicle area with tunnel access site down lower on her medial breast area . There is no gross drainage at the site. A little redness over the tract at this time. No significant tenderness over the tract. She has this dual-lumen Groshong coming out the lateral aspect of the upper part of her breast/chest area on the left. No obvious drainage at tenderness site. CARDIOVASCULAR: Regular pulse. CHEST: Equal excursion. Nonlabored breathing. ABDOMEN: Nondistended EXTREMITIES: No cyanosis. NEUROLOGIC: Alert. PSYCHIATRIC: Appropriate mood and affect. LABORATORY DATA AND TESTS: The patient CT abdomen and pelvis, no acute intra-abdominal pathology. CT of the chest, normal pericolic effusion, no gross . There are some basal atelectatic bands, prior inflammatory reaction but no current obvious pneumonia. There was central venous line going along the left brachiocephalic. I question extraluminal extension 5 mm past the vein with no or hematoma. The nighttime radiologist, Dr. Danielle, concurs, he questions the tip out extraluminal extension of the catheter. White count 7.9, hemoglobin 9.8. The white count had been 10. Platelets are okay at 256,000. She has slight elevation of liver function test, slight elevation but normal bilirubin. She is on home TPN and home IV medication according to the patient. IMPRESSION: A 44-year-old female with multiple medical problems, multiple surgeries in the past. She is on home TPN and IV medications, which required a dual-lumen Groshong placed per Dr. Lombardi about 3 or 4 months ago. She did have a fever. There is no redness at the site but question whether she had a line infection. The other question is that the radiologist feels the tip of the catheter is outside the vein. There is no reaction or major hematoma there. I did feel she would benefit from having this catheter removed at some point, but given her full anticoagulation, Lovenox, that she just got earlier, might be better to have her off Lovenox bleeding superficial on the chest wall where the cuff is insignificant, any bleeding in the chest could be very significant if she bled from the tip if the catheter is past the tip extra luminal. We will discuss with Dr. Lombardi who placed this, see what his thoughts are. She would benefit from removing the catheter at some point and placing a new one possibly a few days later if she remained afebrile. This type of catheter would need to be available in [place]. We will discuss with Dr. Lombardi about his thoughts about having her transferred, hold her Lovenox, take her catheter out tomorrow and possibly do catheter later in the week, but will discuss with him as he placed this. Either way, we do not feel she needs emergent surgery right at the moment as she is nontoxic, has a normal white count, and is hemodynamically stable. Patient agrees with the current plan. Wait to see what Dr. Lombardi's thoughts are and eventually remove the catheter, eventually she will need a new catheter.
== END 2024-12-05 18:15 | disposition home or self-care (01) ==
LOC: ED 19:39 → MED SURG 23:39
PROVIDERS: ADMIT Internal Medicine; ATTEND Internal Medicine
DX: A41.9 Sepsis, unspecified organism (principal); T80.219A Unspecified infection due to central venous catheter, initial encounter; E87.6 Hypokalemia; G43.909 Migraine, unspecified, not intractable, without status migrainosus; R50.9 Fever, unspecified; R74.01 Elevation of levels of liver transaminase levels; E66.9 Obesity, unspecified; Q43.3 Congenital malformations of intestinal fixation; Z86.718 Personal history of other venous thrombosis and embolism; Z79.899 Other long term (current) drug therapy